=== PATIENT | female | born 1960 | race African-American/Black ===

== ENCOUNTER 2017-05-20 04:16 | Emergency (ER) | payer MEDICAID ==
[~2017-05-20 04:16] MED LIST: ALBUAER3 INH; ALDA50TA2 PO; AZIT250T3 PO; BIO-POW TOPICAL; DICL1GEL TOP; DICL1GEL TOPICAL; DIOV40TA PO; FURO40TA PO; GABA600T PO; IBUP-232 PO; KLOR20TA6 PO; LANTINJ SQ; LEVO75TA3 PO; LEXA10TA PO; METH4PAK PO; METO25TA3 PO; MISC-274; NEBUMIS9; NEUR600T PO; NYSTT TOP; ONDA4TAB7 SL; POTA1TAB4 PO; ROLLER WALKER1 MI1; SUPETAB30 PO; VESI10TA PO; VOLT1GEL4 TOPICAL; ZANT150T2 PO; ZOFR4TAB3 SL; [UNRECOGNIZED DRUG - CODE]
[2017-05-20 04:18] VITALS: BP 184/87; PULSE 110; RESP 18; TEMP 98.6; O2SAT 96
[2017-05-20] MEDS ORDERED: ACETAMINOPHEN 325 MG TAB PO ONE (04:45)
[2017-05-20] MEDS ORDERED: ONDANSETRON ODT 4 MG TAB PO ONE (04:45)
[2017-05-20 05:01] LABS: BACTERIA, URINE RARE /hpf; BLOOD, URINE SMALL (NEG); COMMENT (UR) CULT NOT INDICATED; CULTURE IF INDICATED CULT NOT INDICATED; GLUCOSE,URINE NEG (NEG); KETONE, URINE NEG (NEG); NITRITE,URINE NEG (NEG); SQUAMOUS EPITHELIAL CELL URINE 1 /hpf (0-5); URINE COLOR YELLOW (YELLW/STRAW)
--- NOTE | 2017-05-20 05:36 | PD ---
HPI Chief Complaint: Complaint Time Seen by Provider: 04:38 Travel History International Travel<30 days: No Contact w/Intl Traveler<30days: No Traveled to known affect area: No History of Present Illness HPI The patient is a 57-year-old [place] female who presents to the emergency department for a 3 day history of dysuria. The patient is a 3 day history of dysuria, frequency, and urgency. She also complains of mild suprapubic discomfort with pain that radiates to the back. She denies any vaginal bleeding or vaginal discharge. She does complain of mild nausea but denies any vomiting, diarrhea, or upper abdominal pain. She does have a history of previous UTI several years ago with similar symptoms. She denies any assisted fever, chills, or sweats. Symptoms are mild, there are no current alleviating or exacerbating factors. PFSH Past Medical History Anemia: Yes Autoimmune Disease: No Blood Disorders: No Anxiety: Yes Depression: Yes Heart Rhythm Problems: Yes Cancer: No Cardiovascular Problems: No Congestive Heart Failure: Yes Coronary Artery Disease: Yes Diabetes: Yes Patient Takes Glucophage: No Diminished Hearing: No Deep Vein Thrombosis: Yes (PE 2007) Endocrine: Yes Glaucoma: No Genitourinary: No Hepatitis: No Hiatal Hernia: No Hypertension: Yes Immune Disorder: No Medical other: Yes (ANEMIA; ) Musculoskeletal: No Neurologic: No Psychiatric: No Reproductive: No Respiratory: No Integumentary: Yes (PVD) Thyroid Disease: No PNEUMOCCOCAL Vaccine (Year): 1 ?: Not Menopausal: Yes : 4 Para: 3 Miscarriage: 1 : 0 Dilation and Curettage (D&C): Yes Tubal Ligation: Yes Past Surgical History Abdominal Surgery: No AICD: No Arteriovenous Shunt: No Cardiac Surgery: No Section: Yes (X3) Ear Surgery: No Endocrine Surgery: No Eye Surgery: No Genitourinary Surgery: No Gynecologic Surgery: No Insulin Pump: No Joint Replacement: No Oral Surgery: No Pacemaker: No Thoracic Surgery: No Other Surgery: Yes (trach) Social History Alcohol Use: No Tobacco Use: No Substance Use: No Allergies-Medications (Allergen,Severity, Reaction): Coded Allergies: *MDRO Multi-Drug Resistant Organism (Verified Allergy, Unknown, 05/20/17) MRSA ESBL Codeine (Verified Adverse Reaction, Severe, N/V, 05/20/17) Reported Meds & Prescriptions Reported Meds & Active Scripts Active Voltaren (Diclofenac Sodium) 100 Gm Gel..gram. 1 Applic TOPICAL Q6HR Proair Hfa 8.5 GM Inh (Albuterol Sulfate) 90 Mcg/Act Aer 2 Puff INH Q4-6H PRN 108 mcg/actuation Furosemide 40 Mg Tab 40 Mg PO DAILY Lantus Solostar Pen Inj (Insulin Glargine) 300 Unit/3 Ml Pen 30 Units SQ HS Zofran Odt (Ondansetron Odt) 4 Mg Tab 4 Mg SL Q6HR PRN Nebulizer Air Tube/Plugs (Respiratory Therapy Supplies) 1 Mis Mis Unit Roller Walker (Misc. Devices) 1 Mis Mis 1 Ea .ROUTE NOW Voltaren Topical (Diclofenac Topical) 1% Gel 1 Applic TOPICAL QID Gabapentin 600 Mg Tab 1,200 Mg PO TID Ondansetron Odt 4 Mg Tab 4 Mg SL Q8HR PRN Vesicare (Solifenacin) 10 Mg Tab 10 Mg PO DAILY Ibuprofen 600 Mg Tab 600 Mg PO Q6H PRN Folding Walker/5" Wheels (Device) 1 Mis Mis 1 Ea .ROUTE DIRECTED B-D Insulin Syringe Ultra 31G X 5/16" 0.3 ml 1 Mis Mis 1 Ea .ROUTE DIRECTED Vesicare (Solifenacin) 10 Mg Tab 10 Mg PO DAILY Methylprednisolone Dosepak (Methylprednisolone) 4 Dspk 4 Mg PO DIRECTED Per Pharmacist Direction K-Tab (Potassium Chloride) 20 Meq Tab 20 Meq PO DAILY Diovan (Valsartan) 40 Mg Tab 40 Mg PO DAILY Metoprolol Tartrate 25 Mg Tab 25 Mg PO Q12HR Zantac (Ranitidine HCl) 150 Mg Tab 150 Mg PO BID Aldactone (Spironolactone) 50 Mg Tab 50 Mg PO DAILY Levothyroxine (Levothyroxine Sodium) 75 Mcg Tab 75 Mcg PO DAILY Reported Lexapro (Escitalopram Oxalate) 10 Mg Tab 10 Mg PO DAILY Review of Systems Except as stated in HPI: all other systems reviewed are Neg General / Constitutional: No: Fever, Chills Gastrointestinal: Positive: Nausea, No: Vomiting, Diarrhea, Abdominal Pain Genitourinary: Positive: Urgency, Frequency, Dysuria, No: Hematuria, Flank Pain, Discharge, Vaginal Bleeding Physical Exam Narrative GENERAL: Awake, alert, pleasant 57-year-old female who appears her stated age and is in no acute respiratory distress. SKIN: Focused skin assessment warm/dry. HEAD: Atraumatic. Normocephalic. EYES: No injection or drainage. ENT: No nasal bleeding or discharge. Mucous membranes pink and moist. NECK: Trachea midline. No JVD. GASTROINTESTINAL: Abdomen obese, ventral hernia that is reducible, no rebound tenderness. Back: No CVA tenderness. MUSCULOSKELETAL: No obvious deformities. No clubbing. No cyanosis. No edema. NEUROLOGICAL: Awake and alert. No obvious cranial nerve deficits. Motor grossly within normal limits. Normal speech. PSYCHIATRIC: Appropriate mood and affect; insight and judgment normal. Data Data Last Documented VS Vital Signs Date Time Temp Pulse Resp B/P Pulse Ox O2 Delivery O2 Flow Rate FiO2 05/20/17 04:18 98.6 110 18 184/87 96 Room Air Orders Urinalysis - C+S If Indicated (05/20/17 04:45) Ondansetron Odt (Zofran Odt) (05/20/17 04:45) Acetaminophen (Tylenol) (05/20/17 04:45) Labs Laboratory Tests Test 05/20/17 03:45 Urine Color YELLOW Urine Turbidity HAZY Urine pH 7.0 Urine Specific [place] 1.018 Urine Protein TRACE mg/dL Urine Glucose (UA) NEG mg/dL Urine Ketones NEG mg/dL Urine Occult Blood SMALL Urine Nitrite NEG Urine Bilirubin NEG Urine Urobilinogen LESS THAN 2.0 MG/DL Urine Leukocyte Esterase MOD Urine RBC 9 /hpf Urine WBC 4 /hpf Urine Squamous Epithelial 1 /hpf Cells Urine Bacteria RARE /hpf Microscopic Urinalysis Comment CULT NOT INDICATED MDM Medical Decision Making Medical Screen Exam Complete: Yes Emergency Medical Condition: Yes Medical Record Reviewed: Yes Interpretation(s) Laboratory Tests Test 05/20/17 03:45 Urine Color YELLOW Urine Turbidity HAZY Urine pH 7.0 Urine Specific [place] 1.018 Urine Protein TRACE mg/dL Urine Glucose (UA) NEG mg/dL Urine Ketones NEG mg/dL Urine Occult Blood SMALL Urine Nitrite NEG Urine Bilirubin NEG Urine Urobilinogen LESS THAN 2.0 MG/DL Urine Leukocyte Esterase MOD Urine RBC 9 /hpf Urine WBC 4 /hpf Urine Squamous Epithelial 1 /hpf Cells Urine Bacteria RARE /hpf Microscopic Urinalysis Comment CULT NOT INDICATED Differential Diagnosis Differential diagnosis includes UTI, nephrolithiasis, hydronephrosis, pyelonephritis, vaginitis, cervicitis, PID. Narrative Course A UA was sent to lab. UA reveals RBCs, a few WBCs, blood, and leukocyte esterase. The patient has frequency, urgency, and dysuria. She does not appear to be in significant pain, I doubt nephrolithiasis. It appears the patient has a cystitis, will be treated with pyridium and Bactrim. She is advised to follow-up with her primary physician and return if symptoms worsen or progress. Diagnosis Primary Impression: Cystitis Patient Instructions: General Instructions Additional Instructions: Medications as directed. Follow-up with her primary physician. Return if symptoms worsen or progress. Med/Other Pt SpecificInfo: Prescription(s) given Scripts Phenazopyridine (Pyridium)100 Mg Eud210 Mg PO Q8H PRN (DYSURIA) 2 Days Ref 0 Prov:Benson Tucker MD 05/20/17 Sulfamethoxazole-Trimethoprim (Bactrim DS)800-160 Mg Tab1 Tab PO BID #6 TAB Ref 0 Prov:Benson Tucker MD 05/20/17 Disposition: 01 DISCHARGE HOME Condition: Stable Benson Tucker MD May 20, 2017 05:36
[2017-05-20] MEDS ORDERED: BACT800T5 PO (05:59)
[2017-05-20] MEDS ORDERED: PHEN0.4T PO (05:59)
== END 2017-05-20 06:28 | disposition home or self-care (01) ==
LOC: NEPE 04:16
DX: N30.90 Cystitis, unspecified without hematuria (principal); K43.9 Ventral hernia without obstruction or gangrene; R11.0 Nausea; D64.9 Anemia, unspecified; I50.9 Heart failure, unspecified; I10 Essential (primary) hypertension; I25.10 Atherosclerotic heart disease of native coronary artery without angina pectoris; E11.9 Type 2 diabetes mellitus without complications; I73.9 Peripheral vascular disease, unspecified
CPT/HCPCS: 81001; 99284

== ENCOUNTER 2017-05-25 18:40 | Emergency (ER) | payer MEDICAID ==
[~2017-05-25] VITALS: Ht 167.6 cm; Wt 165.0 kg
[~2017-05-25 18:40] MED LIST changes: -AZIT250T3 PO; +BACT800T5 PO; -BIO-POW TOPICAL; -DICL1GEL TOP; -KLOR20TA6 PO; -NEUR600T PO; -NYSTT TOP; +PHEN0.4T PO; -SUPETAB30 PO
[2017-05-25 18:43] VITALS: BP 144/74; PULSE 128; RESP 25; TEMP 98.3; O2SAT 97
--- NOTE | 2017-05-25 19:38 | RADRPT ---
EXAM DATE/TIME: 05/25/2017 19:10 [facility] COMPARISON: CHEST SINGLE AP, April 21, 2014, 3:32. INDICATIONS : Short of breath. MEDICAL HISTORY : None. SURGICAL HISTORY : None. ENCOUNTER: Initial ACUITY: 1 day PAIN SCORE: 0/10 LOCATION: Bilateral chest FINDINGS: A single view of the chest demonstrates the lungs to be symmetrically aerated without evidence of mas s, infiltrate or effusion. The cardiomediastinal contours are unremarkable. Osseous structures are intact. Large body habitus. CONCLUSION: Lungs are clear. Kyle Pearson MD on May 25, 2017 at 19:36 Board Certified Radiologist. This report was verified electronically.
[2017-05-25 20:12] LABS: AUTOMATED NEUTROPHIL # 8.4 TH/MM3 (1.8-7.7); BASOPHIL # 0.1 TH/MM3 (0-0.2); BASOPHIL % 0.6 % (0.0-2.0); EOSINOPHIL # 0.1 TH/MM3 (0-0.4); EOSINOPHIL % 0.9 % (0.0-4.0); HEMATOCRIT 35.9 % (35.0-46.0); HEMO FLAGS DIFF FINAL; LYMPH % 16.9 % (9.0-44.0); LYMPHOCYTE # 1.9 TH/MM3 (1.0-4.8); MEAN CELL VOLUME 83.4 FL (80.0-100.0); MEAN CORPUSCULAR HEMOGLOBIN 26.1 PG (27.0-34.0); MEAN CORPUSCULAR HGB CONC 31.3 % (32.0-36.0); MONO % 7.3 % (0.0-8.0); NEUT % 74.3 % (16.0-70.0); PLATELET COUNT 200 TH/MM3 (150-450); RED BLOOD COUNT 4.31 MIL/MM3 (4.00-5.30); RED CELL DISTRIBUTION WIDTH 14.8 % (11.6-17.2); WHITE BLOOD COUNT 11.3 TH/MM3 (4.0-11.0)
--- NOTE | 2017-05-25 20:25 | PD ---
HPI Chief Complaint: Complaint Time Seen by Provider: 19:00 Travel History International Travel<30 days: No Contact w/Intl Traveler<30days: No Traveled to known affect area: No History of Present Illness HPI Patient is a 57-year-old female presenting to the emergency department for evaluation of low back, bilateral flank pain and low abdominal pain. Patient states that it [place] when she urinates, it's gotten worse over the last several days. She states the pain makes her feel nauseated. She has not vomited but states she's nauseated. Patient reports that she was diagnosed with cystitis on May 20, she states she's been compliant with antibiotic therapy. She denies any chest pain, shortness of breath, fever, chills, headache. PFSH Past Medical History Narrative Medical MORBID OBESITY, LYMPHEDEMA Anemia: Yes Anxiety: Yes Depression: Yes Heart Rhythm Problems: Yes Cancer: No Cardiovascular Problems: Yes (PVD) Congestive Heart Failure: Yes Coronary Artery Disease: Yes Diabetes: Yes Patient Takes Glucophage: Yes Diminished Hearing: No Deep Vein Thrombosis: Yes ( 2007) Glaucoma: No Genitourinary: Yes Hepatitis: No Hiatal Hernia: No Hypertension: Yes Immune Disorder: No Medical other: Yes Musculoskeletal: No Neurologic: No Psychiatric: No Reproductive: No Respiratory: No Immunizations Current: Yes Thyroid Disease: No PNEUMOCCOCAL Vaccine (Year): 1 ?: Not Menopausal: Yes : 4 Para: 3 Miscarriage: 1 : 0 Dilation and Curettage (D&C): Yes Tubal Ligation: Yes Past Surgical History Abdominal Surgery: No AICD: No Arteriovenous Shunt: No Cardiac Surgery: No Section: Yes (X3) Ear Surgery: No Endocrine Surgery: No Eye Surgery: No Genitourinary Surgery: No Gynecologic Surgery: No Insulin Pump: No Joint Replacement: No Oral Surgery: No Pacemaker: No Thoracic Surgery: No Social History Alcohol Use: No Tobacco Use: No Substance Use: No Allergies-Medications (Allergen,Severity, Reaction): Coded Allergies: *MDRO Multi-Drug Resistant Organism (Verified Allergy, Unknown, 05/25/17) MRSA ESBL Codeine (Verified Adverse Reaction, Severe, N/V, 05/25/17) Reported Meds & Prescriptions Reported Meds & Active Scripts Active Nystop Topical (Nystatin Topical) 100,000 Unit/Gm Powd 1 Applic TOPICAL Q12HR Macrobid (Nitrofurantoin Monoh/Nitrofur Macro) 100 Mg Cap 100 Mg PO BID 7 Days Pyridium (Phenazopyridine HCl) 100 Mg Tab 200 Mg PO Q8H PRN 2 Days Bactrim DS (Sulfamethoxazole-Trimethoprim) 800-160 Mg Tab 1 Tab PO BID Voltaren (Diclofenac Sodium) 100 Gm Gel..gram. 1 Applic TOPICAL Q6HR Proair Hfa 8.5 GM Inh (Albuterol Sulfate) 90 Mcg/Act Aer 2 Puff INH Q4-6H PRN 108 mcg/actuation Furosemide 40 Mg Tab 40 Mg PO DAILY Lantus Solostar Pen Inj (Insulin Glargine) 300 Unit/3 Ml Pen 30 Units SQ HS Zofran Odt (Ondansetron Odt) 4 Mg Tab 4 Mg SL Q6HR PRN Nebulizer Air Tube/Plugs (Respiratory Therapy Supplies) 1 Mis Mis Unit Roller Walker (Misc. Devices) 1 Mis Mis 1 Ea .ROUTE NOW Voltaren Topical (Diclofenac Topical) 1% Gel 1 Applic TOPICAL QID Gabapentin 600 Mg Tab 1,200 Mg PO TID Ondansetron Odt 4 Mg Tab 4 Mg SL Q8HR PRN Vesicare (Solifenacin) 10 Mg Tab 10 Mg PO DAILY Ibuprofen 600 Mg Tab 600 Mg PO Q6H PRN Folding Walker/5" Wheels (Device) 1 Mis Mis 1 Ea .ROUTE DIRECTED B-D Insulin Syringe Ultra 31G X 5/16" 0.3 ml 1 Mis Mis 1 Ea .ROUTE DIRECTED Vesicare (Solifenacin) 10 Mg Tab 10 Mg PO DAILY Methylprednisolone Dosepak (Methylprednisolone) 4 Dspk 4 Mg PO DIRECTED Per Pharmacist Direction K-Tab (Potassium Chloride) 20 Meq Tab 20 Meq PO DAILY Diovan (Valsartan) 40 Mg Tab 40 Mg PO DAILY Metoprolol Tartrate 25 Mg Tab 25 Mg PO Q12HR Zantac (Ranitidine HCl) 150 Mg Tab 150 Mg PO BID Aldactone (Spironolactone) 50 Mg Tab 50 Mg PO DAILY Levothyroxine (Levothyroxine Sodium) 75 Mcg Tab 75 Mcg PO DAILY Reported Lexapro (Escitalopram Oxalate) 10 Mg Tab 10 Mg PO DAILY Review of Systems Except as stated in HPI: all other systems reviewed are Neg General / Constitutional: No: Fever, Chills HENT: No: Headaches Cardiovascular: No: Chest Pain or Discomfort Respiratory: No: Shortness of Breath Gastrointestinal: Positive: Nausea, Abdominal Pain, No: Vomiting, Diarrhea Genitourinary: Positive: Dysuria Skin: Positive Rash Physical Exam Narrative GENERAL: Morbidly obese, well-developed, alert female. SKIN: Warm and dry. Chronic changes to left lower extremity secondary to lymphedema. Excoriation under pannus with foul odor. HEAD: Atraumatic. Normocephalic. EYES: Pupils equal and round. No scleral icterus. No injection or drainage. ENT: No nasal bleeding or discharge. Mucous membranes pink and moist. NECK: Trachea midline. No JVD. CARDIOVASCULAR: Tachycardic. RESPIRATORY: No accessory muscle use. Clear to auscultation. Breath sounds diminished but equal bilaterally. GASTROINTESTINAL: Abdomen obese soft, non-tender, nondistended. Hepatic and splenic margins not palpable. Positive bowel sounds, no rebound, no guarding MUSCULOSKELETAL: Extremities without clubbing, cyanosis. Lymphedema. No obvious deformities. NEUROLOGICAL: Awake and alert. No obvious cranial nerve deficits. Motor grossly within normal limits. Five out of 5 muscle strength in the arms and legs. Normal speech. PSYCHIATRIC: Appropriate mood and affect; insight and judgment normal. Data Data Last Documented VS Vital Signs Date Time Temp Pulse Resp B/P Pulse Ox O2 Delivery O2 Flow Rate FiO2 05/25/17 21:22 80 24 132/72 99 Room Air 05/25/17 18:43 98.3 Orders Complete Blood Count With Diff (05/25/17 19:05) Comprehensive Metabolic Panel (05/25/17 19:05) Lactic Acid Sepsis Protocol (05/25/17 19:05) Urinalysis - C+S If Indicated (05/25/17 19:05) Blood Culture (05/25/17 19:05) Wound Culture And Gram Stain (05/25/17 19:05) Chest, Single Ap (05/25/17 19:05) Blood Glucose (05/25/17 19:05) Ecg Monitoring (05/25/17 19:05) Iv Access Insert/Monitor (05/25/17 19:05) Oximetry (05/25/17 19:05) Oxygen Administration (05/25/17 19:05) Ct Abd/Pel W/O Iv Contrast (05/25/17 19:05) Urine Culture (05/25/17 20:50) Nitrofurantoin Monohyd Macrocr (Macrobid (05/25/17 22:15) Labs Laboratory Tests Test 05/25/17 05/25/17 19:50 20:50 White Blood Count 11.3 TH/MM3 Red Blood Count 4.31 MIL/MM3 Hemoglobin 11.3 GM/DL Hematocrit 35.9 % Mean Corpuscular Volume 83.4 FL Mean Corpuscular Hemoglobin 26.1 PG Mean Corpuscular Hemoglobin 31.3 % Concent Red Cell Distribution Width 14.8 % Platelet Count 200 TH/MM3 Mean Platelet Volume 7.8 FL Neutrophils (%) (Auto) 74.3 % Lymphocytes (%) (Auto) 16.9 % Monocytes (%) (Auto) 7.3 % Eosinophils (%) (Auto) 0.9 % Basophils (%) (Auto) 0.6 % Neutrophils # (Auto) 8.4 TH/MM3 Lymphocytes # (Auto) 1.9 TH/MM3 Monocytes # (Auto) 0.8 TH/MM3 Eosinophils # (Auto) 0.1 TH/MM3 Basophils # (Auto) 0.1 TH/MM3 CBC Comment DIFF FINAL Differential Comment Sodium Level 140 MEQ/L Potassium Level 3.7 MEQ/L Chloride Level 106 MEQ/L Carbon Dioxide Level 25.5 MEQ/L Anion Gap 9 MEQ/L Blood Urea Nitrogen 14 MG/DL Creatinine 0.72 MG/DL Estimat Glomerular Filtration 102 ML/MIN Rate Random Glucose 112 MG/DL Lactic Acid Level 1.3 mmol/L Calcium Level 9.4 MG/DL Total Bilirubin 0.5 MG/DL Aspartate Amino Transf 10 U/L (AST/SGOT) Alanine Aminotransferase 14 U/L (ALT/SGPT) Alkaline Phosphatase 72 U/L Total Protein 8.1 GM/DL Albumin 3.5 GM/DL Urine Color YELLOW Urine Turbidity HAZY Urine pH 7.5 Urine Specific [place] 1.022 Urine Protein TRACE mg/dL Urine Glucose (UA) NEG mg/dL Urine Ketones 40 mg/dL Urine Occult Blood SMALL Urine Nitrite NEG Urine Bilirubin NEG Urine Urobilinogen LESS THAN 2.0 MG/DL Urine Leukocyte Esterase LARGE Urine RBC 13 /hpf Urine WBC 4 /hpf Urine Squamous Epithelial 2 /hpf Cells Urine Bacteria OCC /hpf Urine Mucus FEW /lpf Microscopic Urinalysis Comment CATH-CULTURE IND MDM Medical Decision Making Medical Screen Exam Complete: Yes Emergency Medical Condition: Yes Medical Record Reviewed: Yes Interpretation(s) Last Impressions Chest X-Ray 05/25/171904 Signed Impressions: Service Date/Time: Thursday, May 25, 2017 19:10 - CONCLUSION: Lungs are clear. Kyle Pearson MD Abdomen/Pelvis CT 05/25/171904 Signed Impressions: Service Date/Time: Thursday, May 25, 2017 19:58 - CONCLUSION: 1. No calcified renal stones or hydronephrosis. 2. Large lower abdominal ventral hernia containing several loops of colon. 3. Abnormal mass and cystic lesions in the low midline pelvis which could be related to the uterus, but a large cystic area separates the mass from the expected locations of the cervix. Kyle Pearson MD Laboratory Tests Test 05/25/17 19:50 White Blood Count 11.3 TH/MM3 Red Blood Count 4.31 MIL/MM3 Hemoglobin 11.3 GM/DL Hematocrit 35.9 % Mean Corpuscular Volume 83.4 FL Mean Corpuscular Hemoglobin 26.1 PG Mean Corpuscular Hemoglobin 31.3 % Concent Red Cell Distribution Width 14.8 % Platelet Count 200 TH/MM3 Mean Platelet Volume 7.8 FL Neutrophils (%) (Auto) 74.3 % Lymphocytes (%) (Auto) 16.9 % Monocytes (%) (Auto) 7.3 % Eosinophils (%) (Auto) 0.9 % Basophils (%) (Auto) 0.6 % Neutrophils # (Auto) 8.4 TH/MM3 Lymphocytes # (Auto) 1.9 TH/MM3 Monocytes # (Auto) 0.8 TH/MM3 Eosinophils # (Auto) 0.1 TH/MM3 Basophils # (Auto) 0.1 TH/MM3 CBC Comment DIFF FINAL Differential Comment Sodium Level 140 MEQ/L Potassium Level 3.7 MEQ/L Chloride Level 106 MEQ/L Carbon Dioxide Level 25.5 MEQ/L Anion Gap 9 MEQ/L Blood Urea Nitrogen 14 MG/DL Creatinine 0.72 MG/DL Estimat Glomerular Filtration 102 ML/MIN Rate Random Glucose 112 MG/DL Lactic Acid Level 1.3 mmol/L Calcium Level 9.4 MG/DL Total Bilirubin 0.5 MG/DL Aspartate Amino Transf 10 U/L (AST/SGOT) Alanine Aminotransferase 14 U/L (ALT/SGPT) Alkaline Phosphatase 72 U/L Total Protein 8.1 GM/DL Albumin 3.5 GM/DL Vital Signs Date Time Temp Pulse Resp B/P Pulse Ox O2 Delivery O2 Flow Rate FiO2 05/25/17 18:43 98.3 128 25 144/74 97 Room Air Differential Diagnosis Diverticulitis versus urinary tract infection versus cellulitis versus metabolic abnormality versus other Narrative Course Patient is a 57-year-old female presenting for evaluation of low back, abdominal and flank pain. Patient is morbidly obese, this is the second time she has presented with these complaints. She was diagnosed with cystitis and reports compliance with antibiotics. On exam there is significant breakdown of the skin on her pannus. Labs and imaging ordered and pending. Patient is tachypneic and tachycardic on arrival however she is morbidly obese this is likely secondary to significant deconditioning. She reports a bowel movement every 2-3 days, this is her norm. CBC with a white count 11.3 with slight left shift Chemistry with no acute abnormality identified Lactic acid 1.3 Chest x-ray shows no acute abnormality CT of the abdomen and pelvis read by radiologist shows lax anterior abdominal wall in the midline abdominal wall CVA slightly towards the right, there is large discontinuity between the rectus muscles measuring 8.8 cm to the mid to lower abdomen and herniation of several loops of colon into the ventral hernia sac. The anterior and lateral margin of the hernia is outside field of view of the CT scan. Additionally there was a 9.4 x 9.4 solid lesion with scattered calcifications and a central hypodense area which is located in the anterior pelvis superior to the bladder, posterior to the solid lesion is a cystic lesion measuring 11.1 cm, the cystic lesion appears to be in continuity with the vaginal fornix, no evidence of free fluid. Diagnosis Primary Impression: UTI (lower urinary tract infection) Additional Impressions: Pelvic mass Skin breakdown Referrals: Thania Rogers MD 1 day Patient Instructions: General Instructions, Urinary Tract Infection in Women ( ED) Additional Instructions: Follow up with your primary doctor to obtain a referral to see a ticket counter to further evaluate pelvic mass. Complete course of antibiotics as prescribed Keep skin under abdominal folds clean and dry, apply antifungal cream as directed Return to the emergency department for any new or worsening symptoms Med/Other Pt SpecificInfo: Prescription(s) given Scripts Ondansetron Odt (Zofran Odt)4 Mg Tab4 Mg SL Q6HR PRN (Nausea/Vomiting) 3 Days Ref 0 Prov:Yeimy Pineda 05/25/17 Nystatin Topical (Nystop Topical)100,000 Unit/Gm Powd1 Applic TOPICAL Q12HR # 60 GM Ref 0 Prov:Yeimy Pineda 05/25/17 Nitrofurantoin Monohydrate Macrocrystals (Macrobid)100 Mg Abr629 Mg PO BID 7 Days Ref 0 Prov:Yeimy Pineda 05/25/17 Disposition: 01 DISCHARGE HOME Condition: Stable Yeimy Pineda May 25, 2017 20:25
[2017-05-25 20:58] LABS: ANION GAP 9 MEQ/L (5-15); BICARBONATE 25.5 MEQ/L (21.0-32.0); BLOOD UREA NITROGEN 14 MG/DL (7-18); CHLORIDE 106 MEQ/L (98-107); GLOMERULAR FILTRATION RATE 102 ML/MIN (>89); POTASSIUM 3.7 MEQ/L (3.5-5.1); SODIUM (NA) 140 MEQ/L (136-145)
[2017-05-25 21:00] LABS: ALT (GPT) 14 U/L (10-53); AST (GOT) 10 U/L (15-37)
[2017-05-25 21:02] LABS: ALKALINE PHOSPHATASE 72 U/L (45-117); TOTAL BILIRUBIN ADULT 0.5 MG/DL (0.2-1.0)
--- NOTE | 2017-05-25 21:13 | RADRPT ---
EXAM DATE/TIME: 05/25/2017 19:58 [facility] COMPARISON: No previous studies available for comparison. INDICATIONS : Patient complains of bilateral flank pain with nausea. ORAL CONTRAST: No oral contrast ingested. RADIATION DOSE: 39.14 CTDIvol (mGy) MEDICAL HISTORY : Cardiovascular disease. Congestive heart failure. SURGICAL HISTORY : section. ENCOUNTER: Initial ACUITY: 1 day PAIN SCALE: 5/10 LOCATION: Bilateral flank TECHNIQUE: Volumetric scanning of the abdomen and pelvis was performed. Using automated exposure control and ad justment of the mA and/or kV according to patient size, radiation dose was kept as low as reasonably achievable to obtain optimal diagnostic quality images. DICOM format image data is available electro nically for review and comparison. FINDINGS: LOWER LUNGS: The visualized lower lungs are clear. Small hiatus hernia. LIVER: Homogeneous density without lesion the noncontrast technique. There is no dilation of the biliary tr ee. No calcified gallstones. SPLEEN: Normal size without lesion. PANCREAS: Within normal limits. KIDNEYS: Normal in size and shape. There is no mass, stone, or hydronephrosis. ADRENAL GLANDS: Within normal limits. VASCULAR: There is no aortic aneurysm. BOWEL/MESENTERY: No dilated loops of small or large bowel. ABDOMINAL WALL: There is a lax anterior abdominal wall and the midline abdominal wall is deviated slightly towards th e right. There is a large discontinuity between the rectus muscles measuring 8.8 cm in the mid to lo wer abdomen and there is herniation of several loops of colon into the ventral hernia sac. The anter ior and lateral margin of the hernia is outside the [id number] of this scan. RETROPERITONEUM: There is no lymphadenopathy. BLADDER: No wall thickening or mass. REPRODUCTIVE: There is a 9.4 x 9.4 cm solid lesion with scattered calcifications and a central hypodense area which is located in the anterior pelvis superior to the urinary bladder. Posterior to the solid lesion is a cystic lesion measuring 11.1 cm. The cystic lesion appears to be in continuity with the vaginal f ornix. No evidence of free fluid. INGUINAL: There is no lymphadenopathy or hernia. MUSCULOSKELETAL: Within normal limits for patient age. CONCLUSION: 1. No calcified renal stones or hydronephrosis. 2. Large lower abdominal ventral hernia containing several loops of colon. 3. Abnormal mass and cystic lesions in the low midline pelvis which could be related to the uterus, b ut a large cystic area separates the mass from the expected locations of the cervix. Kyle Pearson MD on May 25, 2017 at 20:56 Board Certified Radiologist. This report was verified electronically.
[2017-05-25 21:22] VITALS: BP 132/72; PULSE 80; RESP 24; O2SAT 99
[2017-05-25 21:35] LABS: BACTERIA, URINE OCC /hpf; BLOOD, URINE SMALL (NEG); COMMENT (UR) CATH-CULTURE IND; CULTURE IF INDICATED CATH CULTURE IND; GLUCOSE,URINE NEG (NEG); KETONE, URINE 40 mg/dL (NEG); MUCUS URINE FEW /lpf (OCC); NITRITE,URINE NEG (NEG); PH, URINE 7.5 (5.0-8.5); SQUAMOUS EPITHELIAL CELL URINE 2 /hpf (0-5); URINE COLOR YELLOW (YELLW/STRAW)
[2017-05-25] MEDS ORDERED: NYST10007 TOPICAL (22:00)
[2017-05-25] MEDS ORDERED: MACR100C2 PO (22:00)
[2017-05-25] MEDS ORDERED: NITROFURANTOIN MONOHYD MACROCR 100 MG CAP PO ONE (22:15)
[2017-05-25] MEDS ORDERED: ZOFR4TAB3 SL (22:16)
[2017-05-25] MEDS ORDERED: ONDANSETRON ODT 4 MG TAB PO ONE (22:30)
== END 2017-05-25 23:08 | disposition home or self-care (01) ==
LOC: NEPE 18:40
DX: N39.0 Urinary tract infection, site not specified (principal); B96.89 Other specified bacterial agents as the cause of diseases classified elsewhere; R19.00 Intra-abdominal and pelvic swelling, mass and lump, unspecified site; E66.01 Morbid (severe) obesity due to excess calories; K43.9 Ventral hernia without obstruction or gangrene
CPT/HCPCS: 71010; 74176; 80053; 81001; 83605; 85025; 87040; 87070; 87086; 87205; 99285

== ENCOUNTER 2017-06-08 22:55 | Inpatient (IN) | payer MEDICAID ==
[~2017-06-08] VITALS: Ht 167.6 cm; Wt 157.1 kg
[~2017-06-08 22:55] MED LIST changes: +MACR100C2 PO; +NYST10007 TOPICAL
[2017-06-08 23:16] VITALS: BP 111/62; PULSE 120; RESP 30; TEMP 99.9; O2SAT 90
[2017-06-08 23:19] VITALS: O2SAT 90; O2SAT 97
--- NOTE | 2017-06-08 23:36 | PD ---
HPI Chief Complaint: Respiratory Symptoms Time Seen by Provider: 23:18 Travel History International Travel<30 days: No Contact w/Intl Traveler<30days: No Traveled to known affect area: No History of Present Illness HPI The patient is a 57 year old female who presents to the [facility] emergency department with a history of shortness of breath that began 2-3 days ago and worsened over the last day. The patient denies having any history of COPD, however she does use inhalers. She is followed by the [facility] for primary care. She has a history of PE in 2007. She is no longer on blood thinners. The patient reports that she had a DVT in the left leg and now has chronic lymphedema of that leg. She reports having increased pain and swelling of the left leg over the last 2 weeks. She reports that she is on ibuprofen and tramadol for pain. She has nausea with vomiting x1 today. She has a cough productive of yellow to brown sputum. She denies any prior history of smoking. The patient reports that she does have a history of sleep apnea. On review of systems, she reports that last week she did have a fever with a MAXIMUM TEMPERATURE of 101. She reports that she was diagnosed with a urinary tract infection and is currently on antibiotic. She cannot recall the name of the antibiotic. She has 2 days left of the course. She continues to have dysuria with urinary frequency and urgency. On review of systems, she denies any recent neck pain, chest pain, abdominal pain, diarrhea, or neurologic symptoms. [facility] Past Medical History Narrative Medical The patient's past medical history is significant for morbid obesity, sleep apnea, chronic lymph edema left leg, DM, hypothyroid disorder, hypertension, heart failure, valvular heart disease, history of urinary incontinence, history of an abnormal Pap smear, history of anemia, history of depression, history of pulmonary embolism, history of left leg DVT. Anemia: Yes Anxiety: Yes Depression: Yes Heart Rhythm Problems: Yes Cancer: No Cardiovascular Problems: Yes (htn, chf) Congestive Heart Failure: Yes Coronary Artery Disease: Yes Diabetes: Yes (insulin) Patient Takes Glucophage: No Diminished Hearing: No Deep Vein Thrombosis: Yes ( 2007) Glaucoma: No Genitourinary: Yes Hepatitis: No Hiatal Hernia: No Hypertension: Yes Immune Disorder: No Medical other: Yes (ANEMIA; ) Musculoskeletal: No Neurologic: No Psychiatric: No Reproductive: No Respiratory: No Immunizations Current: Yes Thyroid Disease: No Influenza Vaccination: No PNEUMOCCOCAL Vaccine (Year): 1 ?: Not Menopausal: Yes : 4 Para: 3 Miscarriage: 1 : 0 Dilation and Curettage (D&C): Yes Tubal Ligation: Yes Past Surgical History Narrative Surgical The patient's past surgical history is significant for a trach placement and removal, 3. Abdominal Surgery: No AICD: No Arteriovenous Shunt: No Cardiac Surgery: No Section: Yes (X3) Ear Surgery: No Endocrine Surgery: No Eye Surgery: No Genitourinary Surgery: No Gynecologic Surgery: No Insulin Pump: No Joint Replacement: No Oral Surgery: No Pacemaker: No Thoracic Surgery: No Social History Alcohol Use: No Tobacco Use: No Substance Use: No Allergies-Medications (Allergen,Severity, Reaction): Coded Allergies: *MDRO Multi-Drug Resistant Organism (Verified Allergy, Unknown, 06/08/17) MRSA ESBL codeine (Unverified Adverse Reaction, Severe, N/V, 06/08/17) Reported Meds & Prescriptions Reported Meds & Active Scripts Active Zofran Odt (Ondansetron Odt) 4 Mg Tab 4 Mg SL Q6HR PRN 3 Days Nystop Topical (Nystatin Topical) 100,000 Unit/Gm Powd 1 Applic TOPICAL Q12HR Macrobid (Nitrofurantoin Monoh/Nitrofur Macro) 100 Mg Cap 100 Mg PO BID 7 Days Pyridium (Phenazopyridine HCl) 100 Mg Tab 200 Mg PO Q8H PRN 2 Days Bactrim DS (Sulfamethoxazole-Trimethoprim) 800-160 Mg Tab 1 Tab PO BID Voltaren (Diclofenac Sodium) 100 Gm Gel..gram. 1 Applic TOPICAL Q6HR Proair Hfa 8.5 GM Inh (Albuterol Sulfate) 90 Mcg/Act Aer 2 Puff INH Q4-6H PRN 108 mcg/actuation Furosemide 40 Mg Tab 40 Mg PO DAILY Lantus Solostar Pen Inj (Insulin Glargine) 300 Unit/3 Ml Pen 30 Units SQ HS Zofran Odt (Ondansetron Odt) 4 Mg Tab 4 Mg SL Q6HR PRN Nebulizer Air Tube/Plugs (Respiratory Therapy Supplies) 1 Mis Mis Unit Roller Walker (Misc. Devices) 1 Mis Mis 1 Ea .ROUTE NOW Gabapentin 600 Mg Tab 1,200 Mg PO TID Ondansetron Odt 4 Mg Tab 4 Mg SL Q8HR PRN Vesicare (Solifenacin) 10 Mg Tab 10 Mg PO DAILY Ibuprofen 600 Mg Tab 600 Mg PO Q6H PRN Vesicare (Solifenacin) 10 Mg Tab 10 Mg PO DAILY Methylprednisolone Dosepak (Methylprednisolone) 4 Dspk 4 Mg PO DIRECTED Per Pharmacist Direction K-Tab (Potassium Chloride) 20 Meq Tab 20 Meq PO DAILY Diovan (Valsartan) 40 Mg Tab 40 Mg PO DAILY Metoprolol Tartrate 25 Mg Tab 25 Mg PO Q12HR Zantac (Ranitidine HCl) 150 Mg Tab 150 Mg PO BID Aldactone (Spironolactone) 50 Mg Tab 50 Mg PO DAILY Levothyroxine (Levothyroxine Sodium) 75 Mcg Tab 75 Mcg PO DAILY Reported Lexapro (Escitalopram Oxalate) 10 Mg Tab 10 Mg PO DAILY Review of Systems Except as stated in HPI: all other systems reviewed are Neg General / Constitutional: No: Fever Eyes: No: Visual changes HENT: Positive: Congestion, No: Headaches Cardiovascular: Positive: Dyspnea on exertion, Edema, No: Chest Pain or Discomfort Respiratory: Positive: Cough, Shortness of Breath Gastrointestinal: Positive: Nausea, Vomiting, No: Abdominal Pain Genitourinary: Positive: Urgency, Dysuria Musculoskeletal: No: Pain Skin: No Rash Neurologic: No: Weakness, Focal Abnormalities, Change in Mentation, Slurred Speech, Sensory Disturbance Psychiatric: No: Depression Endocrine: No: Polydipsia Hematologic/Lymphatic: No: Easy Bruising Physical Exam Narrative General: The patient is a well-developed well-nourished female, in no acute distress. Head and Neck exam: Head is normocephalic atraumatic. Eyes: EOMI, pupils are equal round and reactive to light. Nose: Midline septum with pink mucous membranes Mouth: Dentition unremarkable. Moist mucus membranes. Posterior oropharynx is not erythematous. No tonsillar hypertrophy. Uvula midline. Airway patent. Neck: No palpable lymphadenopathy. No nuchal rigidity. No thyromegaly. Cardiovascular: Sinus tachycardia in the 1 teens without murmurs, gallops, or rubs. No pulse deficit to the extremities and obtain his auscultation and palpation of her radial artery. Lungs: Expiratory wheezes are audible throughout bilateral lung escoto with decreased breath sounds in the bases. No rhonchi, no crackles. No accessory muscle use. No tripoding, no paroxysmal abdominal breathing. Abdomen: Soft, with tenderness on palpation in the left lower quadrant, suprapubic area, no other tenderness on palpation of the other quadrants of the abdomen No guarding, rebound, or rigidity. Negative Center Point sign. Normal bowel sounds are audible. No tenderness on palpation of McBurney's point. Extremities: No clubbing or cyanosis. The patient has 1+ edema on the right, 2+ on the left. The patient has a wound along the lateral aspect of the lower leg which she reports occurred 3 months ago when she hit her leg with the car door. She denies being in wound care for this. 2+ pulses in all 4 extremities. On more in depth examination of the patient's left leg, the patient is noted to have lymphedema that is most prominent proximally area the patient has macerated skin , skin breakdown noted under the left abdominal pannus and in the popliteal fossa. The patient has a foul odor to drainage underneath the left abdominal pannus and the left thigh pannus. This was cultured. Back: No costovertebral angle tenderness to palpation. Neurologic Exam: Grossly nonfocal. Skin Exam: No rash noted. Data Data Last Documented VS Vital Signs Date Time Temp Pulse Resp B/P Pulse Ox O2 Delivery O2 Flow Rate FiO2 06/09/17 00:02 120 26 119/66 97 Nasal Cannula 4 06/08/17 23:16 99.9 Orders Complete Blood Count With Diff (06/08/17 23:36) Comprehensive Metabolic Panel (06/08/17 23:36) B-Type Natriuretic Peptide (06/08/17 23:36) Act Partial Throm Time (Ptt) (06/08/17 23:36) Prothrombin Time / Inr (Pt) (06/08/17 23:36) Ckmb (Isoenzyme) Profile (06/08/17 23:36) Troponin I (06/08/17 23:36) Urinalysis - C+S If Indicated (06/08/17 23:36) Blood Culture (06/08/17 23:36) Iv Access Insert/Monitor (06/08/17 23:36) Electrocardiogram (06/08/17 23:36) Ecg Monitoring (06/08/17 23:36) Oximetry (06/08/17 23:36) Oxygen Administration (06/08/17 23:36) Sodium Chloride 0.9% Flush (Ns Flush) (06/08/17 23:45) Methylprednisolone So Succ Inj (Solumedr (06/08/17 23:45) Albuterol-Ipratropium Neb (Duoneb Neb) (06/08/17 23:45) Lactic Acid Sepsis Protocol (06/08/17 23:36) CKMB (06/09/17 00:00) CKMB% (06/09/17 00:00) Wound Culture And Gram Stain (06/09/17 01:02) Urine Culture (06/09/17 01:00) Chest, Single Ap (06/09/17 01:29) Piperacil-Tazo 3.375 Gm Premix (Zosyn 3. (06/09/17 01:30) Vancomycin Inj (Vancomycin Inj) (06/09/17 01:30) Sodium Chlorid 0.9% 500 Ml Inj (Ns 500 M (06/09/17 01:45) Aspirin Chew (Aspirin Chew) (06/09/17 02:15) Nitroglycerin 2% Oint (Nitroglycerin 2% (06/09/17 02:15) Admit Order (Ed Use Only) (06/09/17 02:02) Labs Laboratory Tests Test 06/09/17 06/09/17 00:00 01:00 White Blood Count 13.3 TH/MM3 Red Blood Count 4.51 MIL/MM3 Hemoglobin 11.8 GM/DL Hematocrit 37.8 % Mean Corpuscular Volume 83.8 FL Mean Corpuscular Hemoglobin 26.3 PG Mean Corpuscular Hemoglobin 31.4 % Concent Red Cell Distribution Width 15.0 % Platelet Count 142 TH/MM3 Mean Platelet Volume 8.8 FL Neutrophils (%) (Auto) 75.5 % Lymphocytes (%) (Auto) 15.5 % Monocytes (%) (Auto) 7.8 % Eosinophils (%) (Auto) 0.5 % Basophils (%) (Auto) 0.7 % Neutrophils # (Auto) 10.0 TH/MM3 Lymphocytes # (Auto) 2.1 TH/MM3 Monocytes # (Auto) 1.0 TH/MM3 Eosinophils # (Auto) 0.1 TH/MM3 Basophils # (Auto) 0.1 TH/MM3 CBC Comment DIFF FINAL Differential Comment Prothrombin Time 11.8 SEC Prothromb Time International 1.1 RATIO Ratio Activated Partial 22.5 SEC Thromboplast Time Sodium Level 141 MEQ/L Potassium Level 3.9 MEQ/L Chloride Level 107 MEQ/L Carbon Dioxide Level 23.6 MEQ/L Anion Gap 10 MEQ/L Blood Urea Nitrogen 18 MG/DL Creatinine 1.03 MG/DL Estimat Glomerular Filtration 67 ML/MIN Rate Random Glucose 160 MG/DL Lactic Acid Level 2.6 mmol/L Calcium Level 9.0 MG/DL Total Bilirubin 0.5 MG/DL Aspartate Amino Transf 16 U/L (AST/SGOT) Alanine Aminotransferase 23 U/L (ALT/SGPT) Alkaline Phosphatase 73 U/L Total Creatine Kinase 298 U/L Creatine Kinase MB 1.8 NG/ML Creatine Kinase MB % 0.6 % Troponin I 0.12 NG/ML B-Type Natriuretic Peptide 402 PG/ML Total Protein 8.4 GM/DL Albumin 3.5 GM/DL Urine Color DARK-BROWN Urine Turbidity CLEAR Urine pH 6.0 Urine Specific [place] 1.039 Urine Protein 100 mg/dL Urine Glucose (UA) NEG mg/dL Urine Ketones 40 mg/dL Urine Occult Blood SMALL Urine Nitrite POS Urine Bilirubin NEG Urine Urobilinogen 4.0 MG/DL Urine Leukocyte Esterase NEG Urine RBC 15 /hpf Urine WBC 2 /hpf Urine Squamous Epithelial 1 /hpf Cells Urine Transitional Epithelial <1 /hpf Cells Urine Bacteria RARE /hpf Urine Hyaline Casts 3 /lpf Urine Mucus FEW /lpf Microscopic Urinalysis Comment CULTURE INDICATED MDM Medical Decision Making Medical Screen Exam Complete: Yes Emergency Medical Condition: Yes Medical Record Reviewed: Yes Interpretation(s) Last Impressions Chest X-Ray 06/09/17 0129 Signed Impressions: Service Date/Time: Friday, June 09, 2017 01:53 - CONCLUSION: No infiltrates seen. Kyle Pearson MD Differential Diagnosis Sepsis related to cellulitis in the left lower extremity, versus DVT, versus PE , versus congestive heart failure exacerbation, versus pneumonia. Narrative Course During the course of the patients emergency department visit, the patients history, examination, and differential diagnosis were reviewed with the patient. The patient had IV access obtained and blood work sent for analysis. The patient states on a monitoring and evaluation advisor with oximetry and blood pressure monitoring. A knee ECG was done on arrival. The patient's ECG shows a sinus tachycardia rate of 120, no acute ST segment elevation. T waves are inverted in lead V1, V2, V4, V3, V6, lead 3. The patient was initially provided Solu-Medrol 125 mg IV, DuoNeb 3. Zosyn 3.375 g IV, vancomycin 1 g IV, normal saline a 500 mL bolus. The patient was started on gentle hydration initially until her chest x-ray was able to be viewed and the BNP was returned given the patient's lower extremity edema. The patients laboratory studies were reviewed and remarkable for a white count of 13.3, hemoglobin 11.8, platelets 142 with 75.5 neutrophils, CMP is remarkable for creatinine 1.03, glucose 160, CPK 298 with 0.6 MB percent, troponin I 0.12, BNP is 402. The patient was given aspirin 162 mg by mouth 1. The patient denies having any chest pain. The patient was given nitroglycerin 1 inch the chest wall. Her initial lactic acid was 2.6. PT 11.8 , PTT 25.5, urinalysis shows 40 ketones small occult blood positive nitrite for urobilinogen 15 RBCs, 2 wbc's, rare bacteria, culture indicated. This was a catheterized specimen. Radiology studies were reviewed and remarkable for a chest x-ray that shows no acute infiltrates. CTA to rule out PE shows a recurrence of PE in this patient with a pulmonary embolism noted in the left lower lobe. The patient is also noted to have a goiter. The family practice residents were made aware of the patient's CT scan coming back positive for pulmonary embolism. They plan to start the patient on heparin by drip titrated dose. Given the patient's elevated BNP and lower extremity edema, the patient was judiciously hydrated regarding her sepsis in order to prevent respiratory failure from fluid overload. The patients results were discussed with the patient, including the plan of care. I explained that further testing and/ or monitoring is indicated based on the patients history, examination, and/ or laboratory findings. Therefore, I recommended admission for additional evaluation. The patient expressed understanding and was agreeable with this plan. The patient was admitted to the hospital in guarded condition and sent to a bed under the care of the family practice residents. Critical Care Narrative Aggregate critical care time was 35 minutes. Time to perform other separately billable procedures was not included in the critical care time. My time did not include minutes spent treating any other patients simultaneously or on activities that did not directly contribute to the patient's treatment. The services I provided to this patient were to treat and/or prevent clinically significant deterioration that could result in: Respiratory failure from fluid overload, versus hypoxic brain injury, versus cardiac arrhythmia, versus cardiovascular collapse. I provided critical care services requiring my management, as noted below: Chart data review, documentation time, medication orders and management, vital sign assessments/reviewing monitor data, ordering and reviewing lab tests, ordering and interpreting/reviewing x-rays and diagnostic studies, care of the patient and discussion of the patient with the admitting physicians. Sepsis Criteria SIRS Criteria (2 or more): Heart rate over 90, RR > 20 or PaCO2 < 32, WBC > 47331, < 4000 or > 10% bands Sepsis Criteria (SIRS+source): Infect source susp/known Severe Sepsis (+one): Lactate >2 Criteria Outcome: Meets SIRS criteria, Meets sepsis criteria Physician Communication Physician Communication The patient's case was discussed with the [facility] practice residents who did agree to admit the patient for further evaluation and treatment at this time. Diagnosis Primary Impression: Sepsis Qualified Code: A41.9 - Sepsis, due to unspecified organism Additional Impressions: Pulmonary embolism Cellulitis Qualified Code: L03.116 - Cellulitis of left lower extremity Urinary tract infection Qualified Code: N39.0 - Urinary tract infection without hematuria, site unspecified Admitting Information Admitting Physician Requests: it Vandana Vargas MD Jun 08, 2017 23:36
[2017-06-08] MEDS ORDERED: methylPREDNISolone SOD SUCC 125 MG/2 ML VIAL IVP ONE (23:45)
[2017-06-08] MEDS ORDERED: SODIUM CHLORIDE 0.9% FLUSH 10 ML FLUSH IVF PRN (23:45)
[2017-06-08] MEDS: RESP: ALBUTEROL 2.5 MG/IPRATROPIUM 0.5 MG NEB (SCH) INH ×2 (23:47→23:48)
[2017-06-09] VITALS (18 sets, daily range): BP systolic 113–155; BP diastolic 56–96; PULSE 92–120; RESP 20–26; TEMP 98.2–99.3; O2SAT 95–99
[2017-06-09 00:14] LABS: BASOPHIL # 0.1 TH/MM3 (0-0.2); BASOPHIL % 0.7 % (0.0-2.0); EOSINOPHIL # 0.1 TH/MM3 (0-0.4); EOSINOPHIL % 0.5 % (0.0-4.0); HEMATOCRIT 37.8 % (35.0-46.0); HEMO FLAGS DIFF FINAL; LYMPH % 15.5 % (9.0-44.0); LYMPHOCYTE # 2.1 TH/MM3 (1.0-4.8); MEAN CELL VOLUME 83.8 FL (80.0-100.0); MEAN CORPUSCULAR HEMOGLOBIN 26.3 PG (27.0-34.0); MEAN CORPUSCULAR HGB CONC 31.4 % (32.0-36.0); MONO % 7.8 % (0.0-8.0); NEUT % 75.5 % (16.0-70.0); PLATELET COUNT 142 TH/MM3 (150-450); RED BLOOD COUNT 4.51 MIL/MM3 (4.00-5.30); WHITE BLOOD COUNT 13.3 TH/MM3 (4.0-11.0)
[2017-06-09 00:27] LABS: APTT (PATIENT) 22.5 SEC (24.3-30.1); INTERNATIONAL NORMALIZED RATIO 1.1 RATIO; PROTHROMBIN TIME - PATIENT 11.8 SEC (9.8-11.6)
[2017-06-09 00:41] LABS: ALT (GPT) 23 U/L (10-53); ANION GAP 10 MEQ/L (5-15); AST (GOT) 16 U/L (15-37); BICARBONATE 23.6 MEQ/L (21.0-32.0); CHLORIDE 107 MEQ/L (98-107); GLOMERULAR FILTRATION RATE 67 ML/MIN (>89); POTASSIUM 3.9 MEQ/L (3.5-5.1); SODIUM (NA) 141 MEQ/L (136-145)
[2017-06-09 00:47] LABS: ALKALINE PHOSPHATASE 73 U/L (45-117); BLOOD UREA NITROGEN 18 MG/DL (7-18); CREATINE KINASE 298 U/L (26-192); TOTAL BILIRUBIN ADULT 0.5 MG/DL (0.2-1.0)
[2017-06-09 01:00] LABS: CKMB 1.8 NG/ML (0.5-3.6)
[2017-06-09 01:25] LABS: BACTERIA, URINE RARE /hpf; BLOOD, URINE SMALL (NEG); GLUCOSE,URINE NEG (NEG); HYALINE CAST, URINE 3 /lpf (RARE); KETONE, URINE 40 mg/dL (NEG); MUCUS URINE FEW /lpf (OCC); SQUAMOUS EPITHELIAL CELL URINE 1 /hpf (0-5); TRANSITIONAL EPI CELLS, URINE <1 /hpf
[2017-06-09 01:26] LABS: COMMENT (UR) CULTURE INDICATED; CULTURE IF INDICATED CULTURE INDICATED; NITRITE,URINE POS (NEG); URINE COLOR DARK-BROWN (YELLW/STRAW)
[2017-06-09] MEDS ORDERED: VANCOMYCIN INJ 1,000 MG in SODIUM CHLOR 0.9% 250 ML INJ 250 ML IV ONE (01:30)
[2017-06-09] MEDS ORDERED: PIPERACIL-TAZO 3.375 GM PREMIX 50 ML IV ONE (01:30)
[2017-06-09] MEDS ORDERED: SODIUM CHLORID 0.9% 500 ML INJ 500 ML IV ONE (01:45)
--- NOTE | 2017-06-09 01:54 | RADRPT ---
EXAM DATE/TIME: 06/09/2017 01:53 [place] COMPARISON: CHEST SINGLE AP, May 25, 2017, 19:10. INDICATIONS : Shortness of breath. MEDICAL HISTORY : Cardiovascular disease. Congestive heart failure SURGICAL HISTORY : section. ENCOUNTER: Initial ACUITY: 1 day PAIN SCORE: 0/10 LOCATION: Bilateral chest FINDINGS: A single view of the chest demonstrates the lungs to be symmetrically aerated without evidence of mas s, infiltrate or effusion. The heart is upper limits normal size for AP technique. Both hemidiaphra gms are well delineated. Osseous structures are intact. CONCLUSION: No infiltrates seen. Kyle Pearson MD on June 09, 2017 at 1:52 Board Certified Radiologist. This report was verified electronically.
[2017-06-09 02:07] LABS: LACTIC ACID GHOST NOT REPORTABLE
[2017-06-09] MEDS ORDERED: NITROGLYCERIN 2% OINT 1 GM PACKET TOPICAL ONE (02:15)
[2017-06-09] MEDS ORDERED: ASPIRIN 81 MG CHEW TAB CHEW ONE (02:15)
--- NOTE | 2017-06-09 03:18 | HHI.HP ---
HPI Service Family Medicine Primary Care Physician Matthew Nino MD Admission Diagnosis Urosepsis Diagnoses: International Travel<30 Days: No Contact w/Intl Traveler<30days: No Known Affected Area: No History of Present Illness Ms. Kiran is a 57 yo AAF presenting with one day history of SOB, N/V (times 2) back and L Leg pain. Pt states that she had "trouble catching her breath" starting this morning. She then developed nausea and vomiting (x2) as well as Left leg and back pain. Her left leg is chronically swollen from a prior DVT. She also complains of a cough productive of yellow/brown sputum for the past 2 days. Denies chest pain. Of note, she came to the ED with dysuria 2 weeks ago and was diagnosed with UTI. Upon chart review she was discharged on zofran, nystatin topical powder and Macorbid (for which she believes to have 2 days left on course). She also complains of skin breakdown under her left pannus as well as the popliteal/ extensor fold of her L knee. (Jose Angel Bourgeois MD R1) Review of Systems Constitutional: COMPLAINS OF: Fatigue, Fever (at onset of UTI 2 weeks ago, nothing current), Change in appetite Ears, nose, mouth, throat: DENIES: Throat pain, Running Nose Respiratory: COMPLAINS OF: Cough, Sputum production, Shortness of breath, DENIES: Hemoptysis Cardiovascular: COMPLAINS OF: Lower Extremity Edema, DENIES: Chest pain, Palpitations Gastrointestinal: COMPLAINS OF: Constipation, Nausea, Vomiting, DENIES: Diarrhea Genitourinary: COMPLAINS OF: Urinary frequency, Dysuria Musculoskeletal: COMPLAINS OF: Back pain Integumentary: COMPLAINS OF: Rash (skin breakdown noted in HPI), DENIES: Nail changes Neurologic: DENIES: Headache, Localized weakness (Jose Angel Bourgeois MD R1) Past Family Social History Past Medical History PMHx: DM, HTN, hypothryoidism, valvular heart disease, Pulmonary embolism, anemia, hypokalemia, overactive bladder Past Surgical History PSHx: (Jose Angel Bourgeois MD R1) Allergies: Coded Allergies: *MDRO Multi-Drug Resistant Organism (Verified Allergy, Unknown, 06/08/17) MRSA ESBL codeine (Unverified Adverse Reaction, Severe, N/V, 06/08/17) Family History FamHx: DM, fibroids Social History SocHx: tobacco: tried it for 1 month many years ago, never a smoker, EtOH: has not had a drink in 15 years ago, prior to that occasional use, denies illicit drugs, is single, lives with her two brothers, unemployed, prior career as a caregiver (Jose Angel Bourgeois MD R1) Physical Exam Vital Signs Vital Signs Date Time Temp Pulse Resp B/P Pulse Ox O2 Delivery O2 Flow Rate FiO2 06/09/17 00:02 120 26 119/66 97 Nasal Cannula 4 06/09/17 00:01 97 Nasal Cannula 4 06/09/17 00:01 97 Nasal Cannula 4 06/08/17 23:19 90 Room Air 06/08/17 23:19 97 Nasal Cannula 4 06/08/17 23:16 99.9 120 30 111/62 90 Physical Exam GENERAL: Obese AAF laying in bed in NAD. SKIN: Grade 1 vs grade 2 ulcerations noted under left side of pannus as well as on extensor surface of left knee. Beefy in appearance with the largest being 1 cm in diameter on her abdomen with multiple 1 mm ulcerations. HEAD: Atraumatic. Normocephalic. No temporal or scalp tenderness. EYES: Pupils equal round and reactive. Extraocular motions intact. No scleral icterus. No injection or drainage. ENT: Lips/mouth appeared dry. Nose without bleeding, purulent drainage or septal hematoma. Throat without erythema, tonsillar hypertrophy or exudate. Uvula midline. Airway patent. CARDIOVASCULAR: Regular rate and rhythm without murmurs, gallops, or rubs. RESPIRATORY: Clear to auscultation. Breath sounds equal bilaterally. No wheezes , rales, or rhonchi. GASTROINTESTINAL: Abdomen soft, non-tender, nondistended. No hepato-splenomegaly , or palpable masses. No guarding. MUSCULOSKELETAL: +2 pitting edema of left leg to level of mid calf and +1 pitting to level of mid calf of R leg. Chronic skin changes suggestive of venous stasis on both legs - hyperpigmented and crusty in appearance NEUROLOGICAL: Awake and alert. Motor and sensory grossly within normal limits. Normal speech. Laboratory Laboratory Tests Test 06/09/17 06/09/17 06/09/17 00:00 01:00 02:30 White Blood Count 13.3 Red Blood Count 4.51 Hemoglobin 11.8 Hematocrit 37.8 Mean Corpuscular Volume 83.8 Mean Corpuscular Hemoglobin 26.3 Mean Corpuscular Hemoglobin 31.4 Concent Red Cell Distribution Width 15.0 Platelet Count 142 Mean Platelet Volume 8.8 Neutrophils (%) (Auto) 75.5 Lymphocytes (%) (Auto) 15.5 Monocytes (%) (Auto) 7.8 Eosinophils (%) (Auto) 0.5 Basophils (%) (Auto) 0.7 Neutrophils # (Auto) 10.0 Lymphocytes # (Auto) 2.1 Monocytes # (Auto) 1.0 Eosinophils # (Auto) 0.1 Basophils # (Auto) 0.1 CBC Comment DIFF FINAL Differential Comment Prothrombin Time 11.8 Prothromb Time International 1.1 Ratio Activated Partial 22.5 Thromboplast Time Sodium Level 141 Potassium Level 3.9 Chloride Level 107 Carbon Dioxide Level 23.6 Anion Gap 10 Blood Urea Nitrogen 18 Creatinine 1.03 Estimat Glomerular Filtration 67 Rate Random Glucose 160 Lactic Acid Level 2.6 2.1 Calcium Level 9.0 Total Bilirubin 0.5 Aspartate Amino Transf 16 (AST/SGOT) Alanine Aminotransferase 23 (ALT/SGPT) Alkaline Phosphatase 73 Total Creatine Kinase 298 Creatine Kinase MB 1.8 Creatine Kinase MB % 0.6 Troponin I 0.12 B-Type Natriuretic Peptide 402 Total Protein 8.4 Albumin 3.5 Urine Color DARK-BROWN Urine Turbidity CLEAR Urine pH 6.0 Urine Specific [place] 1.039 Urine Protein 100 Urine Glucose (UA) NEG Urine Ketones 40 Urine Occult Blood SMALL Urine Nitrite POS Urine Bilirubin NEG Urine Urobilinogen 4.0 Urine Leukocyte Esterase NEG Urine RBC 15 Urine WBC 2 Urine Squamous Epithelial 1 Cells Urine Transitional Epithelial <1 Cells Urine Bacteria RARE Urine Hyaline Casts 3 Urine Mucus FEW Microscopic Urinalysis Comment CULTURE INDICATED Date/Time Procedure Status Source Growth 06/09/17 01:15 Gram Stain Received Wound Abdomen Pending 06/09/17 01:15 Wound Culture Received Wound Abdomen Pending 06/09/17 01:00 Urine Culture Received Urine Clean Catch Pending 06/09/17 00:05 Aerobic Blood Culture Received Blood Peripheral Pending 06/09/17 00:05 Anaerobic Blood Culture Received Blood Peripheral Pending (Jose Angel Bourgeois MD R1) Result Diagram: 06/09/17 0000 06/09/17 0000 Imaging Last Impressions Chest X-Ray 06/09/17 0129 Signed Impressions: Service Date/Time: Friday, June 09, 2017 01:53 - CONCLUSION: No infiltrates seen. Kyle Pearson MD (Jose Angel Bourgeois MD R1) Assessment and Plan Assessment and Plan 57 yo F presenting to ED with sepsis, SOB and N/V. Code Status FULL CODE (Jose Angel Bourgeois MD R1) Attending Attestation The patient has been seen and examined. The chart and all resident notes have been reviewed. I agree that inpatient care is appropriate and that a two midnight stay is expected for the reasons documented in the resident history and physical. I have discussed this with the resident and certify the resident s order for inpatient admission. Patient seen and examined. Case reviewed and discussed Please refer to resident H&P for further details regarding HPI, ROS, PMH, SurgHx , Fh and SocHx In summary, patient is a 57yoAAF with a history of prior DVT as well as overactive bladder presenting with sepsis due to pyelonephritis and recurrent PE She is seen in the [facility] on heparin gtt Reports she is feeling like breathing is a little easier GENERAL: obese female, resting in bed SKIN: Warm and dry. LLE with circular wound, some weeping, no evidence of infection. L pannicular lesions with malodor. HEAD: Normocephalic. AT EYES: No scleral icterus. No injection or drainage. ENT: Op clear. Nc in place. MM slightly dry NECK: Supple, trachea midline. No JVD or lymphadenopathy. CARDIOVASCULAR: Tachycardic rate and reg rhythm without murmurs, gallops, or rubs. RESPIRATORY: Breath sounds equal bilaterally. Poor aeration and diminished effort. No accessory muscle use. GASTROINTESTINAL: Abdomen soft, non-tender, nondistended. Obese, skin as above. No rebound. MUSCULOSKELETAL: No cyanosis, there is bilateral edema, LLE >RLE. L radhika tenderness on exam BACK: Nontender without obvious deformity. NEURO: Awake and alert. Normal speech. MAEW. A/P: 57yoF with: Sepsis due to pyelonephritis Failed outpatient therapy Obesity Recurrent PE Tachycardia SOB Skin wounds DM2 HTN Acute kidney injury Heparin gtt Urine and blood cultures Lactic acid protocol IVF resuscitation trend cbc, bmp wound care consult Empiric antibiotic therapy Resume home meds as appropriate Patient seen and examined Case reviewed and discussed Agree with plan of care as discussed with me and documented in the resident note. (Ilsa Baeza MD) Problem List: (1) Sepsis Status: Acute Plan: urosepsis vs cellulitis vs pneumonia HR 120, WBC 13.3 on admission Lactic acid 2.6 on admission, repeating previously diagnosed with UTI, continues to have dysuria, UA on admission showing bacteria, nitrites Continuing Vancomycin 1 gm q12hr, Zosyn 3.375 gm q6hr pharmacy consulted for vanc dosing urine, wound, blood cultures pending CXR normal on admission Given 500 mL bolus in ER, given 1,000 mL bolus on admission repeat CBC in AM (2) Shortness of breath Status: Acute Plan: PE vs pneumonia vs MD vs CHF exacerbation prior PE, DVT in past O2 sat in ED 90%, started on 4L NC -> weaned to 2L with O2 sat at 97% CXR normal on admission CT pulmonary angiogram read pending ECG on admission showing sinus tachycardia with no ST segment changes, repeating q6hr Troponin 0.12 on admission, repeating q6hr CKMB ordered - repeating q6hr Patient reports using inhaler occasionally at home, given duonebs in ED Continuing Duonebs, albuterol PRN Switching home PO Lasix to IV - 20mg BID, will continue home po Potassium 20 mEq daily repeat BMP (3) COSME (acute kidney injury) Status: Acute Plan: Cr 1.03 on admission, prior was 0.72 less than 1 month ago Given bolus on admission, 75 mL/hr maintenance to follow Mucous membranes/lips dry on admission Mckay catheter inserted in ED due to urinary leakage, continuing Mckay follow up BMP (4) Nausea & vomiting Status: Acute Plan: n/v x 2 earlier the day of admission nonbilious, no hematemesis Zofran 4mg IV q6hr PRN (5) Diabetes mellitus type 2 Status: Chronic Plan: Glucose 160 on admission Takes Lantus 30 units daily at home Ordering Levemir 8 units SQ q12hr, low NovoLOG scale Regular diet at this time (6) Neuropathy Status: Chronic Plan: continuing home Gabapentin 1.200 mg TID (7) HTN (hypertension) Status: Chronic Plan: Continuing home Metoprolol tartrate 25mg po BID, Valsartan 40mg po daily , Spironolactone 50mg po daily (8) Depression Status: Chronic Plan: Continuing home Lexapro 10mg po daily (9) Hypothyroidism Status: Chronic Plan: Continuing home Levothyroxine 75 mcg po daily (10) Nutrition, metabolism, and development symptoms Status: Acute Plan: full diet, IVFs as discussed above DVT prophylaxis with Lovenox 40mg SQ q24hr Continuing home Ranitidine 150 mg po BID (Jose Angel Bourgeois MD R1) Physician Certification 2 Midnight Certification Type: Admission for Inpatient Services Order for Inpatient Services The services are ordered in accordance with Medicare regulations or non- Medicare payer requirements, as applicable. In the case of services not specified as inpatient-only, they are appropriately provided as inpatient services in accordance with the 2-midnight benchmark. Estimated LOS (days): 2 days is the estimated time the patient will need to remain in the hospital, assuming treatment plan goals are met and no additional complications. Post-Hospital Plan: Not yet determined (Jose Angel Bourgeois MD R1) Problem Qualifiers (1) Sepsis: Qualified Code: A41.9 - Sepsis, due to unspecified organism (2) HTN (hypertension): Qualified Code: I10 - Essential hypertension (3) Depression: Qualified Code: F32.9 - Depression, unspecified depression type Jose Angel Bourgeois MD R1 Jun 09, 2017 03:18 Ilsa Baeza MD Jun 09, 2017 22:38
[2017-06-09] MEDS ORDERED: IOHEXOL 350 MG/ML 10 ML VIAL (for RAD DIAG) IV ONE (04:08)
[2017-06-09] MEDS ORDERED: SODIUM CHLORIDE 0.9% FLUSH 10 ML FLUSH IV FLUSH PRN (04:30)
[2017-06-09] MEDS ORDERED: Vancomycin Consult Pharmacy 1 EA OTHER SCH (04:30)
[2017-06-09] MEDS ORDERED: SODIUM CHLOR 0.9% 1000 ML INJ 1,000 ML IV ONE (04:45)
[2017-06-09] MEDS ORDERED: DEXTROSE 50% IN WATER 50 ML VIAL(D50) IV PRN (04:45)
[2017-06-09] MEDS ORDERED: MORPHINE SULFATE 4 MG/ML INJ IV PRN (04:45)
[2017-06-09] MEDS ORDERED: ACETAMINOPHEN 325 MG TAB PO PRN (04:45)
[2017-06-09] MEDS ORDERED: NALOXONE HCL 0.4 MG/ML AMP IV PRN (04:45)
[2017-06-09] MEDS ORDERED: RESP: ALBUTEROL 2.5 MG/IPRATROPIUM 0.5 MG NEB (PRN) NEB (04:45)
[2017-06-09] MEDS ORDERED: ALBUTEROL SULFATE 90 MCG/ACT HFA 8 GM INHALER INH PRN (04:45)
[2017-06-09] MEDS ORDERED: GLUCAGON 1 MG/ML VIAL OTHER PRN (04:45)
--- NOTE | 2017-06-09 04:51 | RADRPT ---
EXAM DATE/TIME: 06/09/2017 03:53 [facility] COMPARISON: US LEG BILATERAL VENOUS DOPPLER, June 23, 2014, 12:23. CHEST SINGLE AP, June 09, 2017, 1:53. INDICATIONS : Shortness of breath, cough and lower extremity swelling. IV CONTRAST: 75 cc Omnipaque 350 (iohexol) IV RADIATION DOSE: 31.76 CTDIvol (mGy) ; Patient body habitus MEDICAL HISTORY : Hypertension. Deep venous thrombosis. Congestive heart failure.CAD. Diabetes. SURGICAL HISTORY : Tubal ligation. ENCOUNTER: Initial ACUITY: 2 days PAIN SCALE: 0/10 LOCATION: Bilateral chest TECHNIQUE: Volumetric scanning of the chest was performed using a pulmonary embolism protocol MIP images were re constructed. Using automated exposure control and adjustment of the mA and/or kV according to patien t size, radiation dose was kept as low as reasonably achievable to obtain optimal diagnostic quality images. DICOM format image data is available electronically for review and comparison. Follow-up recommendations for detected pulmonary nodules are based at a minimum on nodule size and pa tient risk factors according to Fleischner Society Guidelines. FINDINGS: Technically limited scan due to patient motion. PULMONARY ARTERIES: Filling defect is seen in the left lower lobe pulmonary artery extending into to basilar segments. N o filling defects seen in the main pulmonary artery. LUNGS: There is no consolidation or pneumothorax . No concerning pulmonary nodule is visualized. PLEURAE: There is no pleural thickening or pleural effusion. MEDIASTINUM: There is good visualization of the great vessels of the middle mediastinum. No evidence of mediastin al or hilar adenopathy/mass. MISCELLANEOUS: Prominent goiter CONCLUSION: 1. Positive for pulmonary embolism in the left lower lobe. 2. Goiter. Kyle Pearson MD on June 09, 2017 at 4:45 Board Certified Radiologist. This report was verified electronically.
[2017-06-09] MEDS: ACETAMINOPHEN/HYDROcodone 325 MG/5 MG TAB PO PRN ×2 (05:04→16:45)
[2017-06-09] MEDS ORDERED: ALBUTEROL SULFATE 90 MCG/ACT HFA 18 GM INHALER INH PRN (05:07)
[2017-06-09] MEDS ORDERED: VANCOMYCIN 1,000 MG/NS 250 ML IV ONE ×2 (05:15)
[2017-06-09] MEDS: SODIUM CHLOR 0.9% 1000 ML INJ 1,000 ML IV SCH ×3 (05:21→17:56)
[2017-06-09] MEDS: LEVOTHYROXINE SODIUM 75 MCG TAB PO SCH ×2 (05:35→05:40)
--- NOTE | 2017-06-09 05:47 | HHI.PR ---
Addendum to Inpatient Note Addendum Reason: Additional Documentation Additional Information CTA remarkable for PE in LLL Patient had already received Lovenox, so we bypassed the loading bolus of Heparin After discussing with Dr. Vargas, we agreed that we could more quickly and safely treat patient to therapeutic efficacy with using Heparin via closer monitoring/adjustment of appropriate dosages. (Jose Angel Bourgeois MD R1) Jose Anegl Bourgeois MD R1 Jun 09, 2017 05:47 Ilsa Baeza MD Jun 09, 2017 22:20
[2017-06-09] MEDS ORDERED: ENOXAPARIN SODIUM 40 MG/0.4 ML SYRINGE SQ SCH (06:00)
[2017-06-09] MEDS: HEPARIN-D5W 25,000 U/250 ML 250 ML IV SCH ×2 (06:05→20:38)
[2017-06-09 06:14] LABS: HEMATOCRIT 33.2 % (35.0-46.0); MEAN CELL VOLUME 83.2 FL (80.0-100.0); MEAN CORPUSCULAR HEMOGLOBIN 26.3 PG (27.0-34.0); MEAN CORPUSCULAR HGB CONC 31.6 % (32.0-36.0); PLATELET COUNT 130 TH/MM3 (150-450); RED BLOOD COUNT 3.99 MIL/MM3 (4.00-5.30); RED CELL DISTRIBUTION WIDTH 14.5 % (11.6-17.2); REVIEW FLAG FINAL; WHITE BLOOD COUNT 13.1 TH/MM3 (4.0-11.0)
[2017-06-09 06:25] LABS: APTT (PATIENT) 22.4 SEC (24.3-30.1); INTERNATIONAL NORMALIZED RATIO 1.1 RATIO; PROTHROMBIN TIME - PATIENT 11.9 SEC (9.8-11.6)
[2017-06-09 06:51] LABS: LACTIC ACID GHOST NOT REPORTABLE
[2017-06-09] MEDS: INSULIN ASPART SUPPLEMENTAL SCALE SQ SCH ×4 (06:57→20:37)
[2017-06-09 07:02] LABS: CKMB 1.5 NG/ML (0.5-3.6)
[2017-06-09] MEDS: SODIUM CHLORIDE 0.9% FLUSH 10 ML FLUSH IV FLUSH SCH ×2 (09:00→20:34)
[2017-06-09] MEDS ORDERED: PIPERACIL-TAZO 3.375 GM PREMIX 50 ML IV SCH (09:00)
[2017-06-09] MEDS: GABAPENTIN 300 MG CAP PO SCH ×3 (10:01→16:45)
[2017-06-09] MEDS: POTASSIUM CHLORIDE 20 MEQ CONTROLLED RELEASE TAB PO SCH (10:01)
[2017-06-09] MEDS: ESCITALOPRAM OXALATE 10 MG TAB PO SCH (10:01)
[2017-06-09] MEDS: FAMOTIDINE 20 MG TAB PO SCH ×2 (10:01→20:34)
[2017-06-09] MEDS: SPIRONOLACTONE 50 MG TAB PO SCH (10:01)
[2017-06-09] MEDS: METOPROLOL TARTRATE 25 MG TAB PO SCH ×2 (10:02→20:34)
[2017-06-09] MEDS: FUROSEMIDE 20 MG/2 ML VIAL IV PUSH SCH ×2 (10:02→16:45)
[2017-06-09] MEDS: INSULIN DETEMIR 100 UNITS/ML VIAL SQ SCH ×2 (10:24→20:36)
[2017-06-09] MEDS: VALSARTAN 40 MG TAB PO SCH (10:29)
[2017-06-09] MEDS ORDERED: CLOTRIMAZOLE 1% SOLN 30 ML BTL TOPICAL SCH (10:45)
--- NOTE | 2017-06-09 11:20 | HHI.FPPN ---
Subjective Remarks Is a 57-year-old morbidly obese female, with a past medical history of coronary artery disease congestive heart failure, and type 2 diabetes, who presents with worsening shortness of breath for the past 24 hours. She was recently seen on May 25, 2017 for a urinary tract infection, and was discharged home on Macrobid 100 mg twice daily for 7 days. Despite this therapy, she continued to have increasing dysuria, frequency, and suprapubic abdominal pain. Recently, she developed acute onset shortness of breath on 06/08 at approximately 9 PM. On admission, she was given Solu-Medrol 125 mg IV 1, and duo nebs 3. Vancomycin and Zosyn was started. She received a 500 mL bolus and started on IV maintenance fluid. She was found to be tachycardic to 120 bpm, having fevers as high as 99.9, and a slight leukocytosis of 13,000. UA was significant for nitrites, rare bacteria, 2 WBCs, and 15 RBCs. Chest x-ray was unremarkable for infiltrates, however a CTA showed a persistent left lower lobe pulmonary embolism (2008 - VQ scan showed high probability PE in [facility], repeat CTA in 2011 showed no PE). She was started on heparin drip after a bolus was given. On evaluation this morning, she reports that she feels "better." She says that her breathing has improved. She is denying any chest pain currently. She is having pain behind her left leg. She is also reporting urinary frequency, and burning with urination. She denies any flank pain or tenderness. (Magdiel Rivera MD, R3) Objective Vitals Vital Signs Date Time Temp Pulse Resp B/P Pulse Ox O2 Delivery O2 Flow Rate FiO2 06/09/17 07:39 99.3 114 22 138/73 95 Room Air 3 06/09/17 06:11 99.1 112 20 113/56 97 06/09/17 05:17 113 26 132/68 95 Nasal Cannula 2 06/09/17 04:55 99 Nasal Cannula 3.00 06/09/17 03:44 115 132/68 97 Nasal Cannula 2 06/09/17 00:02 120 26 119/66 97 Nasal Cannula 4 06/09/17 00:01 97 Nasal Cannula 4 06/09/17 00:01 97 Nasal Cannula 4 06/08/17 23:19 90 Room Air 06/08/17 23:19 97 Nasal Cannula 4 06/08/17 23:16 99.9 120 30 111/62 90 I/O 06/08/17 06/08/17 06/08/17 06/09/17 06/09/17 06/09/17 07:00 15:00 23:00 07:00 15:00 23:00 Intake Total 1500 ml 240 ml Output Total 325 ml Balance 1175 ml 240 ml Intake Oral 240 ml IV Total 1500 ml Output Urine Total 325 ml (Magdiel Rivera MD, R3) Result Diagram: 06/09/17 0600 06/09/17 0000 A/P Assessment and Plan 57 yo F presenting to ED with sepsis, SOB and N/V. (Magdiel Rivera MD, R3) Attending Attestation Patient seen and examined. Case reviewed and discussed Agree with plan of care as discussed with me and documented in the resident note Patient reports improvement in her breathing, still having dyspnea with exertion Discussed diagnosis, patient reports previously was on Coumadin, would like to use this again for anticoagulation, though she is uncertain of dose Spoke with RN, Jahaira in [facility], regarding plan of care Wound care consult for LE and panicular wounds (Ilsa Baeza MD) Problem List: (1) Sepsis Status: Acute Plan: urosepsis vs cellulitis vs pneumonia HR 120, WBC 13.3 on admission Lactic acid 2.6 on admission, down trending previously diagnosed with UTI, continues to have dysuria, UA on admission showing bacteria, nitrites Continuing Vancomycin 1 gm q12hr, Zosyn 3.375 gm q6hr pharmacy consulted for vanc dosing urine, wound, blood cultures pending CXR normal on admission Given 500 mL bolus in ER, given 1,000 mL bolus on admission (2) Pulmonary embolism Status: Chronic Plan: O2 sat in ED 90%, started on 4L NC -> weaned to 2L with O2 sat at 97% CXR normal on admission CT pulmonary angiogram showed pulmonary embolism in the left lower lobe. ECG on admission showing sinus tachycardia with no ST segment changes, repeating q6hr. also showed T-wave inversions in V1, V2, V3, and lead III, that were new since 2013. May be related to demand ischemia. Troponin 0.12 on admission, decreased to 0.10 after 6 hours. Repeat every 6 hours. Consult cardiology if any further changes in EKG or troponins. Patient reports using inhaler occasionally at home, given duonebs in ED Continuing Duonebs, albuterol PRN Switching home PO Lasix to IV - 20mg BID, will continue home po Potassium 20 mEq daily (3) COSME (acute kidney injury) Status: Acute Plan: Cr 1.03 on admission, prior was 0.72 less than 1 month ago Given bolus on admission, 75 mL/hr maintenance to follow Mucous membranes/lips dry on admission Mckay catheter inserted in ED due to urinary leakage, continuing Mckay follow up BMP (4) Nausea & vomiting Status: Acute Plan: n/v x 2 earlier the day of admission nonbilious, no hematemesis Zofran 4mg IV q6hr PRN (5) Diabetes mellitus type 2 Status: Chronic Plan: Glucose 160 on admission Takes Lantus 30 units daily at home Ordering Levemir 8 units SQ q12hr, low NovoLOG scale Regular diet at this time (6) Neuropathy Status: Chronic Plan: continuing home Gabapentin 1.200 mg TID (7) HTN (hypertension) Status: Chronic Plan: Continuing home Metoprolol tartrate 25mg po BID, Valsartan 40mg po daily , Spironolactone 50mg po daily (8) Depression Status: Chronic Plan: Continuing home Lexapro 10mg po daily (9) Hypothyroidism Status: Chronic Plan: Continuing home Levothyroxine 75 mcg po daily (10) Nutrition, metabolism, and development symptoms Status: Acute Plan: full diet, IVFs as discussed above DVT prophylaxis - heparin gtt. Continuing home Ranitidine 150 mg po BID wdw Dr. Baeza (Magdiel Rivera MD, R3) Problem Qualifiers (1) Sepsis: Qualified Code: A41.9 - Sepsis, due to unspecified organism (2) HTN (hypertension): Qualified Code: I10 - Essential hypertension (3) Depression: Qualified Code: F32.9 - Depression, unspecified depression type Magdiel Rivera MD, R3 Jun 09, 2017 11:20 Ilsa Baeza MD Jun 09, 2017 22:24
[2017-06-09] MEDS ORDERED: HEPARIN SODIUM - IV 10,000 UNITS/10 ML VIAL IV PRN ×2 (11:45)
[2017-06-09] MEDS: [UNRECOGNIZED DRUG - REMARK] TOPICAL SCH ×2 (12:23→21:00)
[2017-06-09 13:40] LABS: APTT (PATIENT) 32.4 SEC (24.3-30.1)
[2017-06-09 14:25] LABS: CKMB 1.4 NG/ML (0.5-3.6)
[2017-06-09] MEDS ORDERED: VANCOMYCIN INJ 1,000 MG in SODIUM CHLOR 0.9% 250 ML INJ 250 ML IV SCH (14:30)
--- NOTE | 2017-06-09 14:58 | EKG ---
Date Performed: 06/09/2017 Time Performed: 05:59:37 PTAGE: 57 years EKG: SINUS TACHYCARDIA LOW QRS VOLTAGE IN PRECORDIAL LEADS POSSIBLE INFERIOR MYOCARDIAL INFARCTI ON MODERATE T-WAVE ABNORMALITY, CONSIDER ANTERIOR ISCHEMIA ABNORMAL ECG PREVIOUS TRACING : 06/08/2017 23.56 Compared to prior tracing no significant change DOCTOR: Sher Manzanares Interpretating Date/Time 06/09/2017 14:57:36
[2017-06-09 15:22] LABS: LACTIC ACID GHOST NOT REPORTABLE
[2017-06-09] MEDS: cefTRIAXone INJ 1,000 MG in SODIUM CHLORIDE 0.9% INJ 100 ML IV SCH (16:44)
--- NOTE | 2017-06-09 18:10 | ECHRPT ---
Indication: CONCLUSIONS Normal left ventricular size. Mild concentric left ventricular hypertrophy. The left ventricular systolic function is low normal with an estimated ejection fraction 50%. There was limited left ventricular wall motion assessment due to poor endocardial visualization. The left atrial size is upper normal. Moderate mitral annular calcification. Aortic valve sclerosis is present. There is mild tricuspid valve regurgitation. There is estimated moderate pulmonary hypertension present (55 mmHg). The pulmonary valve is not well visualized. BP: 139 / 86 HR: 99 Rhythm: Sinus MEASUREMENTS (Male / Female) Normal Values Technical Quality:Technically difficult study 2D ECHO LV Diastolic Diameter PLAX 4.2 cm 4.2 - 5.9 / 3.9 - 5.3 cm LV Systolic Diameter PLAX 3.5 cm IVS Diastolic Thickness 1.5 cm 0.6 - 1.0 / 0.6 - 0.9 cm LVPW Diastolic Thickness 0.8 cm 0.6 - 1.0 / 0.6 - 0.9 cm LV Relative Wall Thickness 0.5 LA Systolic Diameter LX 4.1 cm 3.0 - 4.0 / 2.7 - 3.8 cm M-MODE Aortic Root Diameter MM 2.5 cm AV Cusp Separation MM 1.4 cm DOPPLER Mitral E Point Velocity 56.3 cm/s Mitral A Point Velocity 78.5 cm/s Mitral E to A Ratio 0.7 TR Peak Velocity 335.0 cm/s TR Peak Gradient 44.9 mmHg FINDINGS LEFT VENTRICLE Normal left ventricular size. Mild concentric left ventricular hypertrophy. The left ventricular systolic function is low normal with an estimated ejection fraction 50%. There was limited left ventricular wall motion assessment due to poor endocardial visualization. RIGHT VENTRICLE Normal right ventricular size and systolic function. LEFT ATRIUM The left atrial size is upper normal. RIGHT ATRIUM The right atrial size is normal. ATRIAL SEPTUM Normal atrial septal thickness without atrial level shunting by limited color doppler interrogation. AORTA The aortic root and proximal ascending aorta are normal in size on limited imaging. MITRAL VALVE Moderate mitral annular calcification. AORTIC VALVE Trileaflet aortic valve. Aortic valve sclerosis is present. TRICUSPID VALVE There is mild tricuspid valve regurgitation. There is estimated moderate pulmonary hypertension present (55 mmHg). PULMONARY VALVE The pulmonary valve is not well visualized. VESSELS The inferior vena cava is normal in size. PERICARDIUM No pericardial effusion. Curtis Vargas MD (Electronically Signed) Final Date:09 June 2017 18:10
--- NOTE | 2017-06-09 18:10 | RADRPT ---
EXAM DATE/TIME: 06/09/2017 15:33 [facility] COMPARISON: No previous studies available for comparison. INDICATIONS : Hematuria. MEDICAL HISTORY : Congestive heart failure. Hypothyroidism. HTN. Valvular heart disease. Coronary artery disease. Pul monary embolism. Irregular heartbeat. DVT. Sleep apnea. Dyspnea. Dysuria. UTI. Urinary incontinence. Anemia. Depression. Anxiety. MRSA. ESBL. SURGICAL HISTORY : Tubal ligation. section. Trach surgery. D&C. Blood transfusions. ENCOUNTER: Initial ACUITY: 1 day PAIN SCORE: 7/10 LOCATION: Bilateral flank MEASUREMENTS: RIGHT KIDNEY: 12.4 x 7.4 x 5.9 cm LEFT KIDNEY: NOT VISUALIZED cm FINDINGS: RIGHT KIDNEY: Renal cortex is normal in thickness and echotexture. No hydronephrosis, stone, or mass. LEFT KIDNEY: The left kidney could not be visualized despite repeated imaging secondary to patient's body habitus and bandages. There is overlying bowel gas as well. BLADDER: Could not be visualized. CONCLUSION: 1. The right kidney is unremarkable in appearance. 2. Left kidney could not be visualized or evaluated. 3. Bladder was not visualized as well. Charles Castillo MD on June 09, 2017 at 18:07 Board Certified Radiologist. This report was verified electronically.
--- NOTE | 2017-06-09 18:24 | RADRPT ---
EXAM DATE/TIME: 06/09/2017 16:57 [facility] COMPARISON: US LEG LEFT VENOUS DOPPLER, April 28, 2013, 9:15. INDICATIONS : Left leg swelling. MEDICAL HISTORY : Congestive heart failure. Hypothyroidism. HTN. Valvular heart disease. Coronary artery disease. P ulmonary embolism. Irregular heartbeat. DVT. Sleep apnea. Dyspnea. Dysuria. UTI. Urinary incontinence . Anemia. Depression. Anxiety. MRSA. ESBL. SURGICAL HISTORY : Tubal ligation. section. Trach surgery. D&C. Blood transfusions. ENCOUNTER: Initial ACUITY: 2 day PAIN SCORE: 7/10 LOCATION: Left leg. TECHNIQUE: Venous ultrasound of the leg was performed from the inguinal ligament to the proximal calf. Real-brenda e, color Doppler and spectral tracing, compression and augmentation techniques were used. FINDINGS: Diffuse soft tissue swelling is again identified. The deep venous system could not be visualized seco ndary to the patient's body habitus. The groin area could not be visualized due to overlying bandages . CONCLUSION: Limited suboptimal examination. Deep venous thrombosis cannot be excluded. Charles Castillo MD on June 09, 2017 at 18:21 Board Certified Radiologist. This report was verified electronically.
[2017-06-09] MEDS ORDERED: WARFARIN SOD 4 MG TAB PO SCH (19:00)
[2017-06-09] MEDS: WARFARIN SOD 4 MG TAB PO SCH (20:34)
[2017-06-09] MEDS ORDERED: VANCOMYCIN INJ 2,000 MG in SODIUM CHLORID 0.9% 500 ML INJ 500 ML IV SCH (22:00)
[2017-06-10] VITALS (15 sets, daily range): BP systolic 119–143; BP diastolic 73–92; PULSE 88–98; RESP 20; TEMP 97.7–98.6; O2SAT 95–100
[2017-06-10] MEDS: [UNRECOGNIZED DRUG - REMARK] TOPICAL SCH ×3 (00:32→21:00)
[2017-06-10] MEDS: SODIUM CHLOR 0.9% 1000 ML INJ 1,000 ML IV SCH ×4 (00:33→23:15)
[2017-06-10 02:24] LABS: AUTOMATED NEUTROPHIL # 14.9 TH/MM3 (1.8-7.7); BASOPHIL % 0.2 % (0.0-2.0); HEMATOCRIT 32.2 % (35.0-46.0); HEMO FLAGS DIFF FINAL; LYMPH % 7.5 % (9.0-44.0); LYMPHOCYTE # 1.4 TH/MM3 (1.0-4.8); MEAN CELL VOLUME 82.6 FL (80.0-100.0); MEAN CORPUSCULAR HEMOGLOBIN 26.3 PG (27.0-34.0); MEAN CORPUSCULAR HGB CONC 31.9 % (32.0-36.0); MONO % 9.5 % (0.0-8.0); NEUT % 82.8 % (16.0-70.0); PLATELET COUNT 127 TH/MM3 (150-450); RED CELL DISTRIBUTION WIDTH 14.7 % (11.6-17.2)
[2017-06-10 02:35] LABS: APTT (PATIENT) 43.4 SEC (24.3-30.1)
[2017-06-10 02:42] LABS: BICARBONATE 26.2 MEQ/L (21.0-32.0)
[2017-06-10] MEDS: LEVOTHYROXINE SODIUM 75 MCG TAB PO SCH (05:09)
[2017-06-10] MEDS: INSULIN ASPART SUPPLEMENTAL SCALE SQ SCH ×4 (05:43→21:00)
--- NOTE | 2017-06-10 08:35 | EKG ---
Date Performed: 06/08/2017 Time Performed: 23:56:13 PTAGE: 57 years EKG: SINUS TACHYCARDIA LOW QRS VOLTAGE IN PRECORDIAL LEADS POSSIBLE INFERIOR MYOCARDIAL INFARCTI ON MODERATE T-WAVE ABNORMALITY, CONSIDER ANTEROLATERAL ISCHEMIA ABNORMAL ECG PREVIOUS TRACING : 06/22/2014 03.02 Compared to the previous tracing, ST/T wave changes are new DOCTOR: Sher Manzanares Interpretating Date/Time 06/10/2017 08:33:13
[2017-06-10] MEDS: GABAPENTIN 300 MG CAP PO SCH ×3 (08:43→17:28)
[2017-06-10] MEDS: FUROSEMIDE 20 MG/2 ML VIAL IV PUSH SCH ×2 (08:45→17:28)
[2017-06-10] MEDS: POTASSIUM CHLORIDE 20 MEQ CONTROLLED RELEASE TAB PO SCH (08:45)
[2017-06-10] MEDS: SPIRONOLACTONE 50 MG TAB PO SCH (08:45)
[2017-06-10] MEDS: METOPROLOL TARTRATE 25 MG TAB PO SCH ×2 (08:45→23:14)
[2017-06-10] MEDS: ESCITALOPRAM OXALATE 10 MG TAB PO SCH (08:45)
[2017-06-10] MEDS: VALSARTAN 40 MG TAB PO SCH (08:45)
[2017-06-10] MEDS: FAMOTIDINE 20 MG TAB PO SCH ×2 (08:45→23:14)
[2017-06-10] MEDS: SODIUM CHLORIDE 0.9% FLUSH 10 ML FLUSH IV FLUSH SCH ×2 (08:46→21:00)
[2017-06-10] MEDS: INSULIN DETEMIR 100 UNITS/ML VIAL SQ SCH ×2 (09:00→23:27)
--- NOTE | 2017-06-10 09:10 | EKG ---
Date Performed: 06/09/2017 Time Performed: 19:23:24 PTAGE: 57 years EKG: Sinus tachycardia. Possible anterior infarct - age undetermined Inferior/lateral T wave jose nges may be due to myocardial ischemia Low QRS voltages in precordial leads Abnormal ECG PREVIOUS TRACING : 06/09/2017 12.19 Compared to prior tracing no significant change DOCTOR: Lalo Novak Interpretating Date/Time 06/10/2017 09:02:11
--- NOTE | 2017-06-10 09:23 | EKG ---
Date Performed: 06/09/2017 Time Performed: 12:19:19 PTAGE: 57 years EKG: SINUS TACHYCARDIA LOW QRS VOLTAGE IN PRECORDIAL LEADS MODERATE T-WAVE ABNORMALITY, CONSIDER ANTEROLATERAL ISCHEMIA ABNORMAL ECG INTERPRETATION BASED ON A DEFAULT AGE OF 40 YEARS PREVIOUS TRACING : 06/09/2017 05.59 Compared to prior tracing no significant change DOCTOR: Lalo Novak Interpretating Date/Time 06/10/2017 09:09:59
--- NOTE | 2017-06-10 10:28 | HHI.FPPN ---
Subjective Remarks Patient feeling better. Reports discomfort around miguel catherter. Denies fevers. Denies worsening SOB - breathing is getting better. Denies chest pain. Denies any bleeding. Patient is currently on heparin gtt and transitioning to coumadin. AFVSS and at goal, except persistent tachycardia to 90-105. (Magdiel Rivera MD, R3) Objective Vitals Vital Signs Date Time Temp Pulse Resp B/P Pulse Ox O2 Delivery O2 Flow Rate FiO2 06/10/17 06:00 96 06/10/17 05:00 99 Nasal Cannula 3.00 06/10/17 05:00 96 06/10/17 04:00 90 06/10/17 03:46 98.6 92 20 128/82 97 06/10/17 03:00 95 06/10/17 02:00 96 06/10/17 01:00 88 06/10/17 00:07 98.6 92 20 138/83 99 06/10/17 00:00 89 06/09/17 23:00 92 06/09/17 22:00 94 06/09/17 21:00 104 06/09/17 20:00 104 06/09/17 19:00 106 06/09/17 19:00 98.7 105 24 128/75 98 06/09/17 18:00 100 06/09/17 17:00 99 06/09/17 16:00 92 06/09/17 15:00 98 06/09/17 14:41 98.2 99 24 155/96 98 06/09/17 12:00 99 24 139/86 97 Nasal Cannula 3 I/O 06/09/17 06/09/17 06/09/17 06/10/17 06/10/17 06/10/17 06:59 14:59 22:59 06:59 14:59 22:59 Intake Total 1500 ml 240 ml 400 ml 2388 ml Output Total 325 ml 1000 ml 600 ml 850 ml Balance 1175 ml -760 ml -200 ml 1538 ml Intake Oral 240 ml 400 ml 360 ml IV Total 1500 ml 2028 ml Output Urine Total 325 ml 1000 ml 600 ml 850 ml Emesis 0 ml # Voids 0 # Bowel Movements 0 (Magdiel Rivera MD, R3) Result Diagram: 06/10/1720406/10/17204 Imaging Last [address] Angiography 06/09/17234 Signed Impressions: Service Date/Time: Friday, June 09, 2017 03:53 - CONCLUSION: 1. Positive for pulmonary embolism in the left lower lobe. 2. Goiter. Kyle Pearson MD Chest X-Ray 06/09/17 0129 Signed Impressions: Service Date/Time: Friday, June 09, 2017 01:53 - CONCLUSION: No infiltrates seen. Kyle Pearson MD Renal Ultrasound 06/09/17 0000 Signed Impressions: Service Date/Time: Wednesday, June 09, 2017 15:33 - CONCLUSION: 1. The right kidney is unremarkable in appearance. 2. Left kidney could not be visualized or evaluated. 3. Bladder was not visualized as well. Charles Castillo MD Lower Extremity Ultrasound 06/09/17 0000 Signed Impressions: Service Date/Time: Friday, June 09, 2017 16:57 - CONCLUSION: Limited suboptimal examination. Deep venous thrombosis cannot be excluded. Charles Castillo MD (Magdiel Rivera MD, R3) A/P Assessment and Plan 57 yo F presenting to ED with sepsis, SOB and N/V. (Magdiel Rivera MD, R3) Attending Attestation Patient seen and examined. Case reviewed and discussed Agree with plan of care as discussed with me and documented in the resident note. Having some nausea, no chest pain Breathing improved (Ilsa Baeza MD) Problem List: (1) Sepsis Status: Acute Plan: Still with leukocytosis (13 k on admission --> 18.0 on 06/10), tachycardia > 90, and likely source of infection being urogenital track. UA showing 50-100,000 mixed gram positive bacteria (likely contaminant). Wound cultures showing heavy skin dina. Blood cultures pending. Lactic acid 2.6 on admission, down trending CXR normal on admission. Continue with NS at maintenance. Continue Rocephin 1 g q 24 hours for pyelonephritis. Continue to follow cultures and sensitivities. D/c Zosyn and vancomycin 06/09. (2) Pulmonary embolism Status: Chronic Plan: Heparin gtt --> PO Coumadin 4 mg PO. Patient was on Coumadin for prior PE in 2007 and would like to resume. O2 sat in ED 90%, started on 4L NC -> weaned to 2L with O2 sat at 97% CXR normal on admission CT pulmonary angiogram showed pulmonary embolism in the left lower lobe. ECG on admission showing sinus tachycardia with no ST segment changes, repeating q6hr. also showed T-wave inversions in V1, V2, V3, and lead III, that were new since 2013. May be related to demand ischemia. Troponin 0.12 on admission, decreased to 0.10 after 6 hours. Patient reports using inhaler occasionally at home, given duonebs in ED Continuing Duonebs, albuterol PRN Switching home PO Lasix to IV - 20mg BID, will continue home po Potassium 20 mEq daily (3) COSME (acute kidney injury) Status: Acute Plan: Resolved with IV hydration. (4) Nausea & vomiting Status: Acute Plan: Resolved. Zofran 4mg IV q6hr PRN (5) Diabetes mellitus type 2 Status: Chronic Plan: BSG 248 - 135 over past 24 hours. Takes Lantus 30 units daily at home Getting 8 units levemir BID since admission. 14 units novoLOG given x 24 hours. Increase basal to 16 units BID. Switch to diabetic diet. (6) Neuropathy Status: Chronic Plan: continuing home Gabapentin 1.200 mg TID (7) HTN (hypertension) Status: Chronic Plan: Continuing home Metoprolol tartrate 25mg po BID, Valsartan 40mg po daily , Spironolactone 50mg po daily (8) Depression Status: Chronic Plan: Continuing home Lexapro 10mg po daily (9) Hypothyroidism Status: Chronic Plan: Continuing home Levothyroxine 75 mcg po daily (10) Nutrition, metabolism, and development symptoms Status: Acute Plan: full diet, IVFs as discussed above DVT prophylaxis - heparin gtt. Continuing home Ranitidine 150 mg po BID wdw Dr. Baeza (11) Pelvic mass Status: Acute Plan: CT pelvis showing: " CT on 05/25/17 showing: "9.4 x 9.4 solid lesion with scattered calcifications in the central hypodense area which is loculated in the anterior pelvis superior to the urinary bladder. Posterior to the solid mass is a cystic lesion measuring 11.1 cm." Concerning for abscess, bladder cancer, or other. Patient also having worsening pelvic, and vaginal pain. 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 (Magdiel Rivera MD, R3) Problem Qualifiers (1) Sepsis: Qualified Code: A41.9 - Sepsis, due to unspecified organism (2) HTN (hypertension): Qualified Code: I10 - Essential hypertension (3) Depression: Qualified Code: F32.9 - Depression, unspecified depression type Magdiel Rivera MD, R3 Jun 10, 2017 10:27 Ilsa Baeza MD Jun 12, 2017 15:23
[2017-06-10] MEDS: ACETAMINOPHEN/HYDROcodone 325 MG/5 MG TAB PO PRN (10:52)
[2017-06-10] MEDS: ONDANSETRON HCL 4 MG/2 ML VIAL IV PUSH PRN (10:53)
[2017-06-10] MEDS: ACETAMINOPHEN/HYDROcodone 325 MG/10 MG TAB PO PRN ×2 (12:48→23:24)
[2017-06-10] MEDS: cefTRIAXone INJ 1,000 MG in SODIUM CHLORIDE 0.9% INJ 100 ML IV SCH (15:00)
--- NOTE | 2017-06-10 15:18 | PD.WCN.NOT ---
Wound Consult Description: Multiple small partial thickness wounds to L lower abdominal fold and Posterior bend of L knee.Also shallow full thickness wound to anterior aspect of L carrero Communicated with: FANNY Dias [facility] and Doctor Miguel Recommendation: 1.Please cleanse areas to L lower abdominal fold and Posterior bend of L knee with soap and water gently and dry thoroughly. Please apply Calazime barrier cream with antifungal cream BID. 2. Please cleanse wound with anterior aspect of L carrero with normal saline or wound cleanser and apply skin prep to periwound before applying adhesive foam dressing. Change dressing every 3 days or PRN for saturation or dislodgement Additional Information: Patient seen on [facility] for evaluation of wound management to LLE and L panicular wounds. Patient is morbidly obese with history of lymph edema. Patient is complaining of pain in lower L abdominal fold and L posterior bend of knee. Assessed these areas to reveal diffuse small round partial thickness wounds with minimal scant sanguinous drainage.Drainage has mild musty odor.Wounds measure ~1cm x ~1cm x~<0.1cm.Periwound noted with satellite lesions and erythema.Left wounds open to air, towel is in place to L lower abdominal fold. L anterior aspect of carrero is noted with a full thickness shallow wound that presents with scant serous drainage that is without odor. Wound bed is noted with ~50% adipose tissue and ~50% red non granulation tissue. Wound measures ~ 3cm x ~2cm x~ 0.1cm Cleansed wound with normal saline and applied skin prep before applying adhesive foam dressing in place.Patient unable to remember when or how wound occurred. Oriana Murillo [facility] Jun 10, 2017 15:18
[2017-06-10] MEDS: WARFARIN SOD 4 MG TAB PO SCH (16:00)
[2017-06-10 16:03] LABS: AUTOMATED NEUTROPHIL # 11.5 TH/MM3 (1.8-7.7); BASOPHIL % 0.2 % (0.0-2.0); EOSINOPHIL % 0.1 % (0.0-4.0); HEMATOCRIT 34.9 % (35.0-46.0); HEMO FLAGS DIFF FINAL; LYMPH % 15.1 % (9.0-44.0); LYMPHOCYTE # 2.3 TH/MM3 (1.0-4.8); MEAN CELL VOLUME 86.4 FL (80.0-100.0); MEAN CORPUSCULAR HEMOGLOBIN 26.5 PG (27.0-34.0); MEAN CORPUSCULAR HGB CONC 30.6 % (32.0-36.0); MONO % 7.7 % (0.0-8.0); NEUT % 76.9 % (16.0-70.0); PLATELET COUNT 139 TH/MM3 (150-450); RED BLOOD COUNT 4.05 MIL/MM3 (4.00-5.30); RED CELL DISTRIBUTION WIDTH 15.1 % (11.6-17.2)
[2017-06-10] MEDS: HEPARIN-D5W 25,000 U/250 ML 250 ML IV SCH (23:26)
--- NOTE | 2017-06-10 23:32 | RADRPT ---
EXAM DATE/TIME: 06/10/2017 22:22 [facility] COMPARISON: No previous studies available for comparison. INDICATIONS : Abnormalities seen on CT. MEDICAL HISTORY : Congestive heart failure. Deep venous thrombosis. Hypertension. Morbid obesity. Coronary artery disea se. Pulmonary embolism. Sleep apnea. . Miscarriage. Diabetes. Hypothyroidism. Depression. An xiety. Measles. Blood transfusion. MRSA. MDRO. SURGICAL HISTORY : section. Tubal ligation. Dlation and curettage. ENCOUNTER: Initial ACUITY: 1 day PAIN SCORE: 2/10 LOCATION: Bilateral pelvis MEASUREMENTS: UTERUS: Non visualized ENDOMETRIAL STRIPE: Non visualized RIGHT OVARY: Non visualized LEFT OVARY: Non visualized FINDINGS: Examination was severely limited by patient's size. Ultrasound does confirm a circumscribed cystic ma ss measuring up to about 10.8 cm x 10.7 cm x 13.1 cm in diameter near the expected location of the ce rvix adjacent to the bladder. This is similar to the CT finding. Suspected uterus measures about 10 x 8.3 x 7.2 cm with probable fibroid. Ovaries not visualized. CONCLUSION: 1. 13.1 cm cystic mass between uterus and bladder similar to recent CT. This cystic mass contains kel e debris but no definite solid component. Uterus is mildly enlarged with probable fibroid. Exam sever hill limited by patient's body habitus. Russell Campbell MD on June 10, 2017 at 23:27 Board Certified Radiologist. This report was verified electronically.
[2017-06-11] VITALS (10 sets, daily range): BP systolic 127–160; BP diastolic 62–80; PULSE 84–108; RESP 20–24; TEMP 97.6–97.9; O2SAT 94–99
[2017-06-11] MEDS: SODIUM CHLOR 0.9% 1000 ML INJ 1,000 ML IV SCH ×4 (02:38→23:04)
[2017-06-11] MEDS: LEVOTHYROXINE SODIUM 75 MCG TAB PO SCH (05:54)
[2017-06-11] MEDS: INSULIN ASPART SUPPLEMENTAL SCALE SQ SCH ×4 (05:54→21:00)
[2017-06-11] MEDS: ONDANSETRON HCL 4 MG/2 ML VIAL IV PUSH PRN (05:59)
--- NOTE | 2017-06-11 08:50 | PD.CONS ---
HPI Chief Complaint pelvic mass Date Seen: Jun 11, 2017 Time Seen: 08:46 Travel History International Travel<30 Days: No Contact w/Intl Traveler<30Days: No Known Affected Area: No History of Present Illness HPI 57yo female admitted with sepsis possible urogenital in origin. Consult placed due to large pelvic mass. Patient relates a long history of very large fibroids delineated well in CT/MRI/US images and impressions since 2005 in her record. Patient states although she has some pelvic pain she does usually completely empty bladder and denies voiding hesitancy, Relates dysuria only recently. Patient has not considered surgery in the past Para: 3 History Past Medical History Narrative Medical COPD Morbid Obesity Valvular heart disease DVT with chronic left leg lymphedema HTN Hypothyroid Overactive bladder Past Surgical History Narrative Surgical section x 3 Allergies-Medications (Allergen,Severity, Reaction): Coded Allergies: *MDRO Multi-Drug Resistant Organism (Verified Allergy, Unknown, 06/08/17) MRSA ESBL codeine (Unverified Adverse Reaction, Severe, N/V, 06/08/17) Home Meds Active Scripts Ondansetron Odt (Zofran Odt)4 Mg Tab4 Mg SL Q6HR PRN (Nausea/Vomiting) 3 Days Ref 0 Prov:Yeimy Pineda 05/25/17 Nystatin Topical (Nystop Topical)100,000 Unit/Gm Powd1 Applic TOPICAL Q12HR # 60 GM Ref 0 Prov:Yeimy Pineda 05/25/17 Nitrofurantoin Monohydrate Macrocrystals (Macrobid)100 Mg Xbt813 Mg PO BID 7 Days Ref 0 Prov:Yeimy Pineda 05/25/17 Phenazopyridine (Pyridium)100 Mg Fsm179 Mg PO Q8H PRN (DYSURIA) 2 Days Ref 0 Prov:Benson Tucker MD 05/20/17 Sulfamethoxazole-Trimethoprim (Bactrim DS)800-160 Mg Tab1 Tab PO BID #6 TAB Ref 0 Prov:Benson Tucker MD 05/20/17 Diclofenac Sodium (Voltaren)100 Gm Gel..gram.1 Applic TOPICAL Q6HR #1 TUBE Ref 5 Prov:Thania Rogers MD 03/24/17 Albuterol 8.5 GM Inh (Proair Hfa 8.5 GM Inh)90 Mcg/Act Aer2 Puff INH Q4-6H PRN ( SHORTNESS OF BREATH) #1 INHALER Ref 11 108 mcg/actuation Prov:Thania Rogers MD 03/24/17 Furosemide 40 Mg Tab40 Mg PO DAILY #30 TAB Ref 11 Prov:Thania Rogers MD 03/24/17 Insulin Glargine Inj (Lantus Solostar Pen Inj)300 Unit/3 Ml Pen30 Units SQ HS # 6 PEN Ref 11 Prov:Thania Rogers MD 03/24/17 Ondansetron Odt (Zofran Odt)4 Mg Tab4 Mg SL Q6HR PRN (Nausea/Vomiting) #60 TAB Ref 4 Prov:Thania Rogers MD 03/24/17 Respiratory Therapy Supplies (Nebulizer Air Tube/Plugs)1 Mis Mis #1 Unit Prov:Thania Rogers MD 03/12/17 Misc. Devices (Roller Walker)1 Mis Mis #[address] .[address] Now Prov:Thania Rogers MD 03/12/17 Gabapentin 600 Mg Tab1,200 Mg PO TID #180 TAB Ref 0 Prov:Thania Rogers MD 02/21/17 Ondansetron Odt 4 Mg Tab4 Mg SL Q8HR PRN (Nausea/Vomiting) #60 TAB Prov:Thania Rogers MD 02/17/17 Solifenacin (Vesicare)10 Mg Tab10 Mg PO DAILY #30 TAB Ref 5 Prov:Thania Rogers MD 02/17/17 Ibuprofen 600 Mg Mdp886 Mg PO Q6H PRN (Pain/Inflammation) #90 TAB Ref 6 Prov:Thania Rogers MD 01/25/17 Solifenacin (Vesicare)10 Mg Tab10 Mg PO DAILY #30 TAB Ref 0 Prov:Chapincito Boateng MD 01/05/17 Methylprednisolone Dosepak 4 Dspk4 Mg PO DIRECTED #1 DSPK Ref 0 Per Pharmacist Direction Prov:Thania Rogers MD 12/14/16 Potassium Chloride ER (K-Tab)20 Meq Tab20 Meq PO DAILY #30 TAB Ref 6 Prov:Thania Rogers MD 12/09/16 Valsartan (Diovan)40 Mg Tab40 Mg PO DAILY #60 TAB Ref 5 Prov:Thania Rogers MD 12/09/16 Metoprolol Tartrate 25 Mg Tab25 Mg PO Q12HR #60 TAB Ref 6 Prov:Thania Rogers MD 12/09/16 Ranitidine (Zantac)150 Mg Ifm090 Mg PO BID #120 TAB Ref 3 Prov:Thania Rogers MD 12/09/16 Spironolactone (Aldactone)50 Mg Tab50 Mg PO DAILY #90 TAB Ref 3 Prov:Thania Rogers MD 10/19/16 Levothyroxine 75 Mcg Tab75 Mcg PO DAILY #30 TAB Ref 11 Prov:Thania Rogers MD 09/08/16 Reported Medications Escitalopram (Lexapro)10 Mg Tab10 Mg PO DAILY #90 TAB Ref 0 09/07/16 Physical Exam Vital Signs Date Time Temp Pulse Resp B/P Pulse Ox O2 Delivery O2 Flow Rate FiO2 06/11/17 04:00 97.6 94 20 130/76 96 06/11/17 04:00 Nasal Cannula 3.00 06/11/17 00:00 Nasal Cannula 3.00 06/11/17 00:00 97.8 95 20 127/77 94 06/10/17 20:30 93 06/10/17 20:00 97.7 95 20 121/73 98 06/10/17 19:27 97 Nasal Cannula 3.00 06/10/17 16:00 98.1 98 20 119/75 98 06/10/17 12:47 20 06/10/17 12:00 98.3 95 20 119/82 95 Narrative GENERAL: Well-nourished, well-developed patient. SKIN: Warm and dry. HEAD: Normocephalic and atraumatic. ABDOMEN/GI: Abdomen soft, non-tender, bowel sounds present, no rebound, no guarding. Very obese with ventral hernia noted GENITOURINARY: External Genitalia: intact and normal in appearance. Large pelvic mass palpable impinging on the bladder on bimanual exam. Very small intoitus, unable to visualize the cervix without speculum exam which would be extraordinarily difficult given the patient's habitus. Cannot palpate either adnexa. No pain with palpation EXTREMITIES: Massive lymphedema left extremity BACK: Nontender without obvious deformity. No CVA tenderness. NEUROLOGICAL: Awake and alert. Motor and sensory grossly within normal limits. Five out of 5 muscle strength in all muscle groups. Normal speech. Data Data Vital Signs Reviewed: Yes Orders (Hub Use Only)Inp Phy Cons/Ref (06/10/17 ) Diet Diabetic (06/10/17 Lunch) Insulin Detemir Inj (Levemir Inj) (06/10/17 21:00) Complete Blood Count With Diff (06/10/17 15:00) Lactic Acid Sepsis Protocol (06/10/17 15:00) Can Sealer Clear For Discharge (06/10/17 ) Wound Care (06/10/17 15:16) Patient Transfer (06/10/17 ) Consult Gynecology (06/10/17 ) (Hub Use Only)Inp Phy Cons/Ref (06/10/17 ) Act Partial Throm Time (Ptt) (06/10/17 18:01) Us Pelvis Comp Hebrew Professor/Non-Preg (06/10/17 ) Act Partial Throm Time (Ptt) (06/11/17 02:49) Act Partial Throm Time (Ptt) (06/12/17 06:00) Clotrimazole 1% Cream (Lotrimin 1% Cream (06/11/17 09:00) Complete Blood Count With Diff (06/12/17 06:00) Basic Metabolic Panel (Bmp) (06/12/17 06:00) Complete Blood Count With Diff (06/11/17 08:41) Labs Last 48 hours Impressions Pelvis Ultrasound 06/10/17 0000 Signed Impressions: Service Date/Time: May 22:22 - CONCLUSION: 1. 13.1 cm cystic mass between uterus and bladder similar to recent CT. This cystic mass contains some debris but no definite solid component. Uterus is mildly enlarged with probable fibroid. Exam severely limited by patient's body habitus. Russell Campbell MD Laboratory Tests Test 06/10/17 06/10/17 06/10/17 06/11/17 09:55 15:39 19:02 03:30 Activated Partial 36.0 45.0 42.0 Thromboplast Time White Blood Count 15.0 Red Blood Count 4.05 Hemoglobin 10.7 Hematocrit 34.9 Mean Corpuscular Volume 86.4 Mean Corpuscular Hemoglobin 26.5 Mean Corpuscular Hemoglobin 30.6 Concent Red Cell Distribution Width 15.1 Platelet Count 139 Mean Platelet Volume 8.3 Neutrophils (%) (Auto) 76.9 Lymphocytes (%) (Auto) 15.1 Monocytes (%) (Auto) 7.7 Eosinophils (%) (Auto) 0.1 Basophils (%) (Auto) 0.2 Neutrophils # (Auto) 11.5 Lymphocytes # (Auto) 2.3 Monocytes # (Auto) 1.2 Eosinophils # (Auto) 0.0 Basophils # (Auto) 0.0 CBC Comment DIFF FINAL Differential Comment Lactic Acid Level 1.7 Date/Time Procedure Status Source Growth 06/09/17 01:15 Gram Stain - Final Resulted Wound Abdomen 06/09/17 01:15 Wound Culture - Preliminary Resulted Wound Abdomen 06/09/17 01:00 Urine Culture - Final Complete Urine Clean Catch 50-100,000 CFU/ML MIXED GRAM POSITIVE... 06/09/17 00:05 Aerobic Blood Culture - Preliminary Resulted Blood Peripheral NO GROWTH IN 1 DAY 06/09/17 00:05 Anaerobic Blood Culture - Preliminary Resulted Blood Peripheral NO GROWTH IN 1 DAY MDM Plan 57yo P3 with history of uterine fibroids in the past now with pelvic mass. 1. Pelvic mass - Most likely uterine fibroids which have been documented in the prior films. Difficult to interpret and exam due to patient habitus. MRI would be the best modality to evaluate. Will order tumor markers but cannot tell whether this mass is uterine vs adnexa in origin. This patient is a very poor surgical candidate due to her ongoing medical problems and morbid obesity. If adnexal/ovarian origin would consider a vest busheler oncology consultation. 2. possible urosepsis - post void bladder scan may be helpful as if patient has large (greater than 150cc) residual, this would increase the issues with recurrent bladder infections. Present organism is most likely a contaminant. Admitting diagnosis: Urosepsis Patient Instructions: Heart Failure (DC) Briana Toth MD Jun 11, 2017 08:50
--- NOTE | 2017-06-11 08:54 | HHI.FPPN ---
Subjective Remarks Overall feeling better. Still having lower abdominal pressure especially after voids. She is requesting to stop her lasix because this exacerbates her discomfort. She is OOB to use the restroom without difficulty. Her breathing is improving, but still requiring n.c. 2 L. Denies fevers or chills. Wondering when she will be able to go home. Seen and evaluated with Dr. Toth. (Magdiel Rivera MD, R3) Objective Vitals Vital Signs Date Time Temp Pulse Resp B/P Pulse Ox O2 Delivery O2 Flow Rate FiO2 06/11/17 04:00 97.6 94 20 130/76 96 06/11/17 04:00 Nasal Cannula 3.00 06/11/17 00:00 Nasal Cannula 3.00 06/11/17 00:00 97.8 95 20 127/77 94 06/10/17 20:30 93 06/10/17 20:00 97.7 95 20 121/73 98 06/10/17 19:27 97 Nasal Cannula 3.00 06/10/17 16:00 98.1 98 20 119/75 98 06/10/17 12:47 20 06/10/17 12:00 98.3 95 20 119/82 95 I/O 06/10/17 06/10/17 06/10/17 06/11/17 06/11/17 06/11/17 07:00 15:00 23:00 07:00 15:00 23:00 Intake Total 2388 ml 741 ml 1130 ml Output Total 850 ml 350 ml Balance 1538 ml 741 ml 780 ml Intake Oral 360 ml IV Total 2028 ml 741 ml 1130 ml Output Urine Total 850 ml 350 ml Emesis 0 ml # Voids 1 # Bowel Movements 0 (Magdiel Rivera MD, R3) Result Diagram: 06/10/17 1539 06/10/17 0205 Imaging Last 72 hours Impressions Pelvis Ultrasound 06/10/17 0000 Signed Impressions: Service Date/Time: May 22:22 - CONCLUSION: 1. 13.1 cm cystic mass between uterus and bladder similar to recent CT. This cystic mass contains some debris but no definite solid component. Uterus is mildly enlarged with probable fibroid. Exam severely limited by patient's body habitus. Russell Campbell MD CT Angiography 06/09/17 0235 Signed Impressions: Service Date/Time: Friday, June 09, 2017 03:53 - CONCLUSION: 1. Positive for pulmonary embolism in the left lower lobe. 2. Goiter. Kyle Pearson MD Chest X-Ray 06/09/17 0129 Signed Impressions: Service Date/Time: Friday, June 09, 2017 01:53 - CONCLUSION: No infiltrates seen. Kyle Pearson MD Renal Ultrasound 06/09/17 0000 Signed Impressions: Service Date/Time: Friday, June 09, 2017 15:33 - CONCLUSION: 1. The right kidney is unremarkable in appearance. 2. Left kidney could not be visualized or evaluated. 3. Bladder was not visualized as well. Charles Castillo MD Lower Extremity Ultrasound 06/09/17 0000 Signed Impressions: Service Date/Time: Friday, June 09, 2017 16:57 - CONCLUSION: Limited suboptimal examination. Deep venous thrombosis cannot be excluded. Charles Castillo MD Objective Remarks GEN: NAD resting comfortably morbid obesity HEENT: Dry mucus membranes, PERRL CV: RRR< tachycardia, faint heart sounds RESP: CTAB anteriorly. Normal respiratory effort. EXT: significant lymph edema and swelling in both lower extremities. (Magdiel Rivera MD, R3) A/P Assessment and Plan 57 yo F presenting to ED with sepsis, SOB and N/V. (Magdiel Rivera MD, R3) Attending Attestation Patient seen and examined. Case reviewed and discussed with Dr. Rivera. Agree with plan of care as discussed with me and documented in the resident note. MRI pending. Await tumor markers Appreciate [employer] expertise Resume vesicare (Ilsa Baeza MD) Problem List: (1) Sepsis Status: Acute Plan: Afebrile, leukocytosis improving. UA showing 50-100,000 mixed gram positive bacteria (likely contaminant). Wound cultures showing heavy skin dina. Blood cultures pending. Lactic acid 2.6 on admission, down trending CXR normal on admission. Continue with NS at maintenance. Continue Rocephin 1 g q 24 hours for pyelonephritis. Continue to follow cultures and sensitivities. D/c Zosyn and vancomycin 06/09. (2) Pulmonary embolism Status: Chronic Plan: Heparin gtt --> PO Coumadin 4 mg PO. Patient was on Coumadin for prior PE in 2007 and would like to resume. O2 sat in ED 90%, started on 4L NC -> weaned to 2L with O2 sat at 97% CXR normal on admission CT pulmonary angiogram showed pulmonary embolism in the left lower lobe. ECG on admission showing sinus tachycardia with no ST segment changes, repeating q6hr. also showed T-wave inversions in V1, V2, V3, and lead III, that were new since 2014. May be related to demand ischemia. Troponin 0.12 on admission, decreased to 0.10 after 6 hours. Patient reports using inhaler occasionally at home, given duonebs in ED Continuing Duonebs, albuterol PRN PO Lasix 20 mg PO daily. Potassium 20 mEq daily (3) Pelvic mass Status: Acute Plan: CT pelvis showing: " CT on 05/25/17 showing: "9.4 x 9.4 solid lesion with scattered calcifications in the central hypodense area which is loculated in the anterior pelvis superior to the urinary bladder. Posterior to the solid mass is a cystic lesion measuring 11.1 cm." US showing: "Team 0.1 cm cystic mass between the uterus and bladder similar to recent CT. Uterus is mildly enlarged with probable fibroid." Evaluated by Dr. Toth, who would recommend avoiding a surgical procedure given the patient's high risk of complications. Recommend getting tumor markers, starting a daily prophylactic antibiotic for UTI, and possibly getting an MRI if possible to further identify the cyst/mass. We appreciate her assistance and expertise. (4) COSME (acute kidney injury) Status: Acute Plan: Resolved with IV hydration. (5) Nausea & vomiting Status: Acute Plan: Resolved. Zofran 4mg IV q6hr PRN (6) Diabetes mellitus type 2 Status: Chronic Plan: BSG <200 x 24 horus. Takes Lantus 30 units daily at home Basa levemir at 16 units BID. Continue. Switch to diabetic diet. (7) Neuropathy Status: Chronic Plan: continuing home Gabapentin 1.200 mg TID (8) HTN (hypertension) Status: Chronic Plan: Continuing home Metoprolol tartrate 25mg po BID, Valsartan 40mg po daily , Spironolactone 50mg po daily BP at goal. (9) Depression Status: Chronic Plan: Continuing home Lexapro 10mg po daily (10) Hypothyroidism Status: Chronic Plan: Continuing home Levothyroxine 75 mcg po daily (11) Nutrition, metabolism, and development symptoms Status: Acute Plan: full diet, IVFs as discussed above DVT prophylaxis - heparin gtt. Continuing home Famotidine [address] Baeza (Magdiel Rivera MD, R3) Problem Qualifiers (1) Sepsis: Qualified Code: A41.9 - Sepsis, due to unspecified organism (2) HTN (hypertension): Qualified Code: I10 - Essential hypertension (3) Depression: Qualified Code: F32.9 - Depression, unspecified depression type Magdiel Rivera MD, R3 Jun 11, 2017 08:54 Ilsa Baeza MD Jun 12, 2017 15:21
[2017-06-11] MEDS: SODIUM CHLORIDE 0.9% FLUSH 10 ML FLUSH IV FLUSH SCH ×2 (09:00→21:00)
[2017-06-11] MEDS: INSULIN DETEMIR 100 UNITS/ML VIAL SQ SCH ×2 (09:00→23:28)
[2017-06-11] MEDS: SPIRONOLACTONE 50 MG TAB PO SCH (09:00)
[2017-06-11] MEDS: FUROSEMIDE 20 MG TAB PO SCH (09:00)
[2017-06-11] MEDS: FAMOTIDINE 20 MG TAB PO SCH ×2 (09:15→22:21)
[2017-06-11] MEDS: POTASSIUM CHLORIDE 20 MEQ CONTROLLED RELEASE TAB PO SCH (09:15)
[2017-06-11] MEDS: ESCITALOPRAM OXALATE 10 MG TAB PO SCH (09:15)
[2017-06-11] MEDS: METOPROLOL TARTRATE 25 MG TAB PO SCH ×2 (09:15→22:21)
[2017-06-11] MEDS: VALSARTAN 40 MG TAB PO SCH (09:15)
[2017-06-11] MEDS: GABAPENTIN 300 MG CAP PO SCH ×3 (09:16→17:43)
[2017-06-11] MEDS: ACETAMINOPHEN/HYDROcodone 325 MG/10 MG TAB PO PRN ×2 (09:39→22:22)
[2017-06-11] MEDS ORDERED: PHARMACY ORDERED LAB ONE (09:45)
[2017-06-11] MEDS: CLOTRIMAZOLE 1% CREAM 15 GM TOPICAL SCH ×2 (10:22→21:00)
[2017-06-11] MEDS: cefTRIAXone INJ 1,000 MG in SODIUM CHLORIDE 0.9% INJ 100 ML IV SCH (14:37)
[2017-06-11] MEDS: HEPARIN-D5W 25,000 U/250 ML 250 ML IV SCH (14:50)
[2017-06-11] MEDS: WARFARIN SOD 4 MG TAB PO SCH (16:00)
[2017-06-11 21:39] LABS: AUTOMATED NEUTROPHIL # 6.9 TH/MM3 (1.8-7.7); BASOPHIL # 0.1 TH/MM3 (0-0.2); BASOPHIL % 0.5 % (0.0-2.0); EOSINOPHIL # 0.2 TH/MM3 (0-0.4); EOSINOPHIL % 2.1 % (0.0-4.0); HEMATOCRIT 34.8 % (35.0-46.0); LYMPH % 29.2 % (9.0-44.0); LYMPHOCYTE # 3.4 TH/MM3 (1.0-4.8); MEAN CELL VOLUME 85.6 FL (80.0-100.0); MEAN CORPUSCULAR HEMOGLOBIN 26.4 PG (27.0-34.0); MEAN CORPUSCULAR HGB CONC 30.9 % (32.0-36.0); MONO % 8.4 % (0.0-8.0); NEUT % 59.8 % (16.0-70.0); PLATELET COUNT 145 TH/MM3 (150-450); RED BLOOD COUNT 4.06 MIL/MM3 (4.00-5.30); RED CELL DISTRIBUTION WIDTH 15.1 % (11.6-17.2); WHITE BLOOD COUNT 11.5 TH/MM3 (4.0-11.0)
[2017-06-11 21:45] LABS: HEMO FLAGS AUTO DIFF
[2017-06-11 21:57] LABS: INTERNATIONAL NORMALIZED RATIO 1.2 RATIO; PROTHROMBIN TIME - PATIENT 12.8 SEC (9.8-11.6)
[2017-06-11 22:15] LABS: SCAN/DIFF AUTO DIFF CONFIRMED
[2017-06-11] MEDS: PROMETHAZINE HCL 25 MG TAB PO PRN (22:21)
[2017-06-12] VITALS (7 sets, daily range): BP systolic 135–162; BP diastolic 74–98; PULSE 84–101; RESP 20–24; TEMP 97.5–98.4; O2SAT 96–99
[2017-06-12] MEDS: HEPARIN-D5W 25,000 U/250 ML 250 ML IV SCH (04:12)
[2017-06-12] MEDS: SODIUM CHLOR 0.9% 1000 ML INJ 1,000 ML IV SCH (05:48)
[2017-06-12] MEDS: LEVOTHYROXINE SODIUM 75 MCG TAB PO SCH (05:55)
--- NOTE | 2017-06-12 06:07 | HHI.FPPN ---
Subjective Remarks Having increasing suprapubic and vaginal pain especially with voiding. Up all night voiding every 20-30 minutes. Feeling feverish today. Breathing at baseline. No new cp. (Magdiel Rivera MD, R3) Objective Vitals Vital Signs Date Time Temp Pulse Resp B/P Pulse Ox O2 Delivery O2 Flow Rate FiO2 06/12/17 04:01 Nasal Cannula 2.00 06/12/17 04:01 97.8 84 20 135/74 98 06/12/17 00:08 Nasal Cannula 2.00 06/12/17 00:08 98.4 100 24 145/78 96 06/11/17 20:32 103 06/11/17 20:00 97.9 102 24 157/62 99 06/11/17 20:00 Nasal Cannula 2.00 06/11/17 17:40 99 Nasal Cannula 3.00 06/11/17 16:00 97.8 84 20 140/80 99 06/11/17 12:00 97.6 89 20 160/77 96 06/11/17 11:30 98 Nasal Cannula 3.00 06/11/17 08:07 108 06/11/17 08:00 Nasal Cannula 3.00 06/11/17 08:00 97.6 92 20 131/70 98 I/O 06/11/17 06/11/17 06/11/17 06/12/17 06/12/17 06/12/17 06:59 14:59 22:59 06:59 14:59 22:59 Intake Total 1130 ml 1430 ml 1957 ml Output Total 350 ml 1275 ml 1300 ml Balance 780 ml 155 ml 657 ml Intake Oral 0 ml 480 ml IV Total 1130 ml 1430 ml 1477 ml Output Urine Total 350 ml 1275 ml 1300 ml # Voids 1 # Bowel Movements 0 0 (Magdiel Rivera MD, R3) Result Diagram: 06/11/17212206/10/17 0205 Objective Remarks GEN: NAD resting comfortably morbid obesity HEENT: Dry mucus membranes, PERRL CV: RRR< tachycardia, faint heart sounds RESP: CTAB anteriorly. Normal respiratory effort. EXT: significant lymph edema and swelling in both lower extremities. (Magdiel Rivera MD, R3) A/P Assessment and Plan 57 yo F presenting to ED with sepsis, SOB and N/V. (Magdiel Rivera MD, R3) Attending Attestation Patient seen and examined. Case reviewed and discussed Agree with plan of care as discussed with me and documented in the resident note. (Ilsa Baeza MD) Problem List: (1) Sepsis Status: Acute Plan: Afebrile, leukocytosis improving. UA showing 50-100,000 mixed gram positive bacteria (likely contaminant). Will stop ABX. Wound cultures showing heavy skin dina. Blood cultures negative to date. Lactic acid 2.6 on admission, down trending CXR normal on admission. Discontinue with NS at maintenance. Discontinue Rocephin 1 g q 24 hours 06/12. D/c Zosyn and vancomycin 06/09. (2) Pulmonary embolism Status: Chronic Plan: Heparin gtt --> PO Coumadin 4 mg PO. INR 06/11 was 1.2 - increase coumadin to 6 mg daily. Patient was on Coumadin for prior PE in 2007 and would like to resume. O2 sat in ED 90%, started on 4L NC -> weaned to 2L with O2 sat at 97% Wean as tolerated. CXR normal on admission CT pulmonary angiogram showed pulmonary embolism in the left lower lobe. ECG on admission showing sinus tachycardia with no ST segment changes, repeating q6hr. also showed T-wave inversions in V1, V2, V3, and lead III, that were new since 2013. May be related to demand ischemia. Troponin 0.12 on admission, decreased to 0.10 after 6 hours. Patient reports using inhaler occasionally at home, given duonebs in ED Continuing Duonebs, albuterol PRN PO Lasix 20 mg PO daily. Potassium 20 mEq daily (3) Pelvic mass Status: Acute Plan: CT pelvis showing: " CT on 05/25/17 showing: "9.4 x 9.4 solid lesion with scattered calcifications in the central hypodense area which is loculated in the anterior pelvis superior to the urinary bladder. Posterior to the solid mass is a cystic lesion measuring 11.1 cm." US showing: "Team 0.1 cm cystic mass between the uterus and bladder similar to recent CT. Uterus is mildly enlarged with probable fibroid." Will follow up with MRI. Vesicare 10 mg daily for urinary symptoms. Evaluated by Dr. Toth, who would recommend avoiding a surgical procedure given the patient's high risk of complications. Recommend getting tumor markers, starting a daily prophylactic antibiotic for UTI, and possibly getting an MRI if possible to further identify the cyst/mass. We appreciate her assistance and expertise. (4) COSME (acute kidney injury) Status: Acute Plan: Resolved, cont to monitor. (5) Nausea & vomiting Status: Acute Plan: Phenergan PO not working well - switch to IV. Consider reglan if persistent N/V. (6) Diabetes mellitus type 2 Status: Chronic Plan: BSG <200 x 24 horus. 77 this on 06/12 in AM - hold Levemir for now, continue ISS. Takes Lantus 30 units daily at home. Switch to diabetic diet. (7) Neuropathy Status: Chronic Plan: continuing home Gabapentin 1.200 mg TID (8) HTN (hypertension) Status: Chronic Plan: Continuing home Metoprolol tartrate 25mg po BID, Valsartan 40mg po daily , Spironolactone 50mg po daily BP at goal. (9) Depression Status: Chronic Plan: Continuing home Lexapro 10mg po daily (10) Hypothyroidism Status: Chronic Plan: Continuing home Levothyroxine 75 mcg po daily (11) Nutrition, metabolism, and development symptoms Status: Acute Plan: full diet, D/c IVF DVT prophylaxis - heparin gtt. Continuing home Famotidine [address] Baeza (Magdiel Rivera MD, R3) Problem Qualifiers (1) Sepsis: Qualified Code: A41.9 - Sepsis, due to unspecified organism (2) HTN (hypertension): Qualified Code: I10 - Essential hypertension (3) Depression: Qualified Code: F32.9 - Depression, unspecified depression type Magdiel Rivera MD, R3 Jun 12, 2017 06:06 Ilsa Baeza MD Jun 12, 2017 15:20
[2017-06-12] MEDS: INSULIN ASPART SUPPLEMENTAL SCALE SQ SCH ×4 (06:09→20:52)
[2017-06-12] MEDS: SPIRONOLACTONE 50 MG TAB PO SCH (08:51)
[2017-06-12] MEDS: FUROSEMIDE 20 MG TAB PO SCH (08:52)
[2017-06-12] MEDS: METOPROLOL TARTRATE 25 MG TAB PO SCH ×2 (08:52→20:59)
[2017-06-12] MEDS: ESCITALOPRAM OXALATE 10 MG TAB PO SCH (08:52)
[2017-06-12] MEDS: POTASSIUM CHLORIDE 20 MEQ CONTROLLED RELEASE TAB PO SCH (08:52)
[2017-06-12] MEDS: GABAPENTIN 300 MG CAP PO SCH ×3 (08:53→17:08)
[2017-06-12] MEDS: ACETAMINOPHEN/HYDROcodone 325 MG/10 MG TAB PO PRN (08:53)
[2017-06-12] MEDS: FAMOTIDINE 20 MG TAB PO SCH ×2 (08:53→20:59)
[2017-06-12] MEDS: PROMETHAZINE HCL 25 MG TAB PO PRN ×2 (08:53→19:26)
[2017-06-12] MEDS: INSULIN DETEMIR 100 UNITS/ML VIAL SQ SCH (08:53)
[2017-06-12] MEDS ORDERED: PROMETHAZINE INJ 25 MG/ML VIAL IM PRN (09:30)
[2017-06-12] MEDS ORDERED: GADODIAMIDE PF 287 MG/ML 10 ML VIAL (for RAD MRI) IV ONE (10:06)
[2017-06-12 12:26] LABS: APTT (PATIENT) 40.4 SEC (24.3-30.1); INTERNATIONAL NORMALIZED RATIO 1.3 RATIO; PROTHROMBIN TIME - PATIENT 14.5 SEC (9.8-11.6)
[2017-06-12 12:33] LABS: AUTOMATED NEUTROPHIL # 7.2 TH/MM3 (1.8-7.7); BASOPHIL # 0.1 TH/MM3 (0-0.2); BASOPHIL % 0.7 % (0.0-2.0); EOSINOPHIL # 0.2 TH/MM3 (0-0.4); EOSINOPHIL % 2.2 % (0.0-4.0); HEMATOCRIT 36.5 % (35.0-46.0); LYMPH % 19.9 % (9.0-44.0); LYMPHOCYTE # 2.1 TH/MM3 (1.0-4.8); MEAN CELL VOLUME 85.2 FL (80.0-100.0); MEAN CORPUSCULAR HEMOGLOBIN 26.7 PG (27.0-34.0); MEAN CORPUSCULAR HGB CONC 31.3 % (32.0-36.0); MONO % 9.4 % (0.0-8.0); NEUT % 67.8 % (16.0-70.0); PLATELET COUNT 127 TH/MM3 (150-450); RED BLOOD COUNT 4.29 MIL/MM3 (4.00-5.30); RED CELL DISTRIBUTION WIDTH 14.7 % (11.6-17.2); WHITE BLOOD COUNT 10.6 TH/MM3 (4.0-11.0)
[2017-06-12 12:34] LABS: HEMO FLAGS AUTO DIFF
[2017-06-12 12:46] LABS: BICARBONATE 29.4 MEQ/L (21.0-32.0); POTASSIUM 3.4 MEQ/L (3.5-5.1)
--- NOTE | 2017-06-12 12:54 | RADRPT ---
EXAM DATE/TIME: 06/12/2017 09:37 [facility] COMPARISON: US PELVIS - COMPLETE (CATEGORY CONSULTANT,NON-PREG), June 10, 2017, 22:22. CT ABDOMEN & PELVIS W/O CONTRAST, Augus 2016, 19:58. INDICATIONS : Mass. CONTRAST: 30 cc Omniscan (gadodiamide) IV MEDICAL HISTORY : Hypertension. Diabetes mellitus type 2. Cardiovascular disease. SURGICAL HISTORY : section. ENCOUNTER: Initial ACUITY: 1 day PAIN SCORE: 5/10 LOCATION: pelvis TECHNIQUE: Multiplanar, multisequence magnetic resonance imaging of the pelvis was performed. FINDINGS: REPRODUCTIVE: There is a large cystic mass measuring 10.6 x 11.4 cm which appears to arise from the uterus. There i s a cystic and solid component anteriorly measuring 8.6 x 7.5 cm. There is enhancement of the anterio r portion. Normal-appearing uterus not seen. Ovaries not well seen. BLADDER: No wall thickening or mass. RETROPERITONEUM: There is no lymphadenopathy. Vascular structures are within normal limits. BOWEL/MESENTERY: Visualized small and large bowel demonstrates no acute abnormality. There is no free fluid. INGUINAL: No lymphadenopathy or hernia. MUSCULOSKELETAL: Bone marrow signal is within normal limits. CONCLUSION: 1. Large mass appears to arise from the uterus with cystic components posteriorly measuring 10.6 x 11 .4 cm. Anterior component is cystic and solid with enhancement. CATEGORY CONSULTANT surgical consultation. Melchor Keith MD on June 12, 2017 at 12:48 Board Certified Radiologist. This report was verified electronically.
[2017-06-12 13:08] LABS: PLATELET ESTIMATE SMEAR LOW (NORMAL); PLATELET MORPHOLOGY NORMAL (NORMAL); SCAN/DIFF AUTO DIFF CONFIRMED
[2017-06-12] MEDS: VALSARTAN 40 MG TAB PO SCH (14:07)
[2017-06-12] MEDS: SODIUM CHLORIDE 0.9% FLUSH 10 ML FLUSH IV FLUSH SCH ×2 (14:07→20:59)
[2017-06-12] MEDS: CLOTRIMAZOLE 1% CREAM 15 GM TOPICAL SCH ×2 (14:08→21:00)
[2017-06-12] MEDS: TOLTERODINE TARTRATE 4 MG CAP LA PO SCH (14:08)
[2017-06-12] MEDS: WARFARIN SOD 6 MG TAB PO SCH (17:08)
[2017-06-13] VITALS (8 sets, daily range): BP systolic 123–139; BP diastolic 65–85; PULSE 89–101; RESP 18–20; TEMP 97.1–97.9; O2SAT 93–100
[2017-06-13 03:49] LABS: THROMBIN TIME FOR LA ND sec (13-19)
[2017-06-13 05:26] LABS: AUTOMATED NEUTROPHIL # 6.4 TH/MM3 (1.8-7.7); BASOPHIL # 0.1 TH/MM3 (0-0.2); BASOPHIL % 0.9 % (0.0-2.0); EOSINOPHIL # 0.3 TH/MM3 (0-0.4); EOSINOPHIL % 2.8 % (0.0-4.0); HEMATOCRIT 36.3 % (35.0-46.0); LYMPH % 22.6 % (9.0-44.0); LYMPHOCYTE # 2.2 TH/MM3 (1.0-4.8); MEAN CELL VOLUME 84.4 FL (80.0-100.0); MEAN CORPUSCULAR HEMOGLOBIN 26.6 PG (27.0-34.0); MEAN CORPUSCULAR HGB CONC 31.4 % (32.0-36.0); MONO % 9.2 % (0.0-8.0); NEUT % 64.5 % (16.0-70.0); PLATELET COUNT 124 TH/MM3 (150-450); RED CELL DISTRIBUTION WIDTH 14.8 % (11.6-17.2); WHITE BLOOD COUNT 9.9 TH/MM3 (4.0-11.0)
[2017-06-13 05:28] LABS: HEMO FLAGS AUTO DIFF
[2017-06-13 05:31] LABS: INTERNATIONAL NORMALIZED RATIO 1.6 RATIO; PROTHROMBIN TIME - PATIENT 17.8 SEC (9.8-11.6)
[2017-06-13] MEDS: HEPARIN-D5W 25,000 U/250 ML 250 ML IV SCH (05:55)
[2017-06-13] MEDS: LEVOTHYROXINE SODIUM 75 MCG TAB PO SCH (05:56)
[2017-06-13] MEDS: ACETAMINOPHEN/HYDROcodone 325 MG/10 MG TAB PO PRN (05:57)
[2017-06-13 06:14] LABS: BANDS 1 % (0-6); CORRECTED NUCLEATED RBC 3 /100 WBC (0-0); EOSINOPHILS 2 % (0-4); NEUTROPHIL # MANUAL DIFF 7.1 TH/MM3 (1.8-7.7); PLATELET ESTIMATE SMEAR LOW (NORMAL); PLATELET MORPHOLOGY NORMAL (NORMAL); POLYS (SEG NEUTROPHILS) 71 % (16-70); SCAN/DIFF FINAL DIFF MANUAL; WBC DIFF SAMPLE 100
[2017-06-13 06:27] LABS: BICARBONATE 31.6 MEQ/L (21.0-32.0); POTASSIUM 3.4 MEQ/L (3.5-5.1)
[2017-06-13] MEDS: INSULIN ASPART SUPPLEMENTAL SCALE SQ SCH ×4 (06:35→21:00)
[2017-06-13] MEDS: FAMOTIDINE 20 MG TAB PO SCH ×2 (09:00→21:40)
[2017-06-13] MEDS: TOLTERODINE TARTRATE 4 MG CAP LA PO SCH (09:00)
[2017-06-13] MEDS: METOPROLOL TARTRATE 25 MG TAB PO SCH ×2 (09:00→21:40)
[2017-06-13] MEDS: GABAPENTIN 300 MG CAP PO SCH ×3 (09:00→18:26)
[2017-06-13] MEDS: ESCITALOPRAM OXALATE 10 MG TAB PO SCH (09:00)
[2017-06-13] MEDS: CLOTRIMAZOLE 1% CREAM 15 GM TOPICAL SCH ×2 (09:00→21:00)
[2017-06-13] MEDS: VALSARTAN 40 MG TAB PO SCH (09:00)
[2017-06-13] MEDS: POTASSIUM CHLORIDE 20 MEQ CONTROLLED RELEASE TAB PO SCH (09:00)
[2017-06-13] MEDS: SPIRONOLACTONE 50 MG TAB PO SCH (09:00)
[2017-06-13] MEDS: SODIUM CHLORIDE 0.9% FLUSH 10 ML FLUSH IV FLUSH SCH ×2 (09:00→21:00)
[2017-06-13] MEDS: FUROSEMIDE 20 MG TAB PO SCH (09:00)
--- NOTE | 2017-06-13 09:20 | HHI.FPPN ---
Subjective Remarks Patient is "Feeling better" today Urinating less and able to sleep Minimal abdominal pain No N/V/D. No CP or SOB. Objective Vitals Vital Signs Date Time Temp Pulse Resp B/P (MAP) Pulse Ox O2 Delivery O2 Flow Rate FiO2 06/13/17 06:28 98 Nasal Cannula 3.00 06/13/17 04:00 97.9 101 20 127/75 (92) 97 06/13/17 00:00 97.6 92 18 130/85 (100) 98 06/12/17 20:09 96 06/12/17 20:00 97.9 101 20 154/78 (103) 98 06/12/17 20:00 Nasal Cannula 2.00 06/12/17 19:35 95 06/12/17 16:25 98.0 89 20 152/85 (107) 99 06/12/17 14:08 18 06/12/17 13:21 98 Nasal Cannula 2.00 I/O 06/12/17 06/12/17 06/12/17 06/13/17 06/13/17 06/13/17 07:00 15:00 23:00 07:00 15:00 23:00 Intake Total 120 ml 426 ml Output Total 800 ml 800 ml 425 ml 4753 ml Balance -680 ml -374 ml -425 ml -4753 ml Intake Oral 120 ml 120 ml IV Total 306 ml Output Urine Total 800 ml 800 ml 425 ml 4753 ml # Bowel Movements 0 0 0 0 Result Diagram: 06/13/17 0449 06/13/17 0449 Imaging Last 72 hours Impressions Pelvis MRI 06/12/17 0000 Signed Impressions: Service Date/Time: Monday, June 12, 2017 09:37 - CONCLUSION: 1. Large mass appears to arise from the uterus with cystic components posteriorly measuring 10.6 x 11.4 cm. Anterior component is cystic and solid with enhancement. CONSERVATION PLANNER surgical consultation. Melchor Keith MD Objective Remarks GENERAL: Morbidly obese. No acute distress. SKIN: Warm and dry. No rash. EYES: No scleral icterus. No injection or drainage. PERRLA. EOMI. HENT: Normocephalic. Atraumatic. Mucus membranes dry. NECK: No visible JVD or lymphadenopathy. CARDIOVASCULAR: Warm and well perfused. Regular rate and rhythm. RESPIRATORY: Normal respiratory effort. Clear to auscultation bilaterally. GASTROINTESTINAL: Large ventral hernia. Nontender to palpation. MUSCULOSKELETAL: Strength grossly WNL. BACK: Without obvious deformity. NEURO/PSYCH: Afocal. Awake, alert, and oriented x3. A/P Assessment and Plan 57 yo F presenting to ED with sepsis, SOB and N/V. Found to have PE, started on heparin drip, transitioning to Coumadin. Cystic mass found on CT scan followed up with ultrasound and MRI. Patient is in stable condition currently. (1) Sepsis Status: Resolved. Plan: Afebrile, leukocytosis improving. UA showing 50-100,000 mixed gram positive bacteria (likely contaminant). Will stop ABX. Wound cultures showing heavy skin dina. Blood cultures negative to date. Lactic acid 2.6 on admission, down trending CXR normal on admission. Discontinue with NS at maintenance. Discontinue Rocephin 1 g q 24 hours 06/12. D/c Zosyn and vancomycin 06/09. (2) Pulmonary embolism Status: Chronic Plan: Heparin gtt --> PO Coumadin 4 mg PO. INR 06/13 was 1.6 - increase Coumadin to 6 mg daily. Patient was on Coumadin for prior PE in 2007 and would like to resume. O2 sat in ED 90%, started on 4L NC -> weaned to 2L with O2 sat at 97% Wean as tolerated. CXR normal on admission CT pulmonary angiogram showed pulmonary embolism in the left lower lobe. ECG on admission showing sinus tachycardia with no ST segment changes, repeating q6hr. also showed T-wave inversions in V1, V2, V3, and lead III, that were new since 2013. May be related to demand ischemia. Troponin 0.12 on admission, decreased to 0.10 after 6 hours. Patient reports using inhaler occasionally at home, given duonebs in ED Continuing Duonebs, albuterol PRN PO Lasix 20 mg PO daily. Potassium 20 mEq daily + 30 mEq on 06/13. (3) Pelvic mass Status: Acute Plan: CT pelvis showing: " CT on 05/25/17 showing: "9.4 x 9.4 solid lesion with scattered calcifications in the central hypodense area which is loculated in the anterior pelvis superior to the urinary bladder. Posterior to the solid mass is a cystic lesion measuring 11.1 cm." US showing: "Team 0.1 cm cystic mass between the uterus and bladder similar to recent CT. Uterus is mildly enlarged with probable fibroid." MRI showing: "Large mass appears to arise from the uterus with cystic components posteriorly measuring 10.6 x 11.4 cm. Anterior compartment is cystic and solid with enhancement." Vesicare 10 mg daily for urinary symptoms. Evaluated by Dr. Toth, who would recommend avoiding a surgical procedure given the patient's high risk of complications. Recommend getting tumor markers, starting a daily prophylactic antibiotic for UTI, and possibly getting an MRI if possible to further identify the cyst/mass. We appreciate her assistance and expertise. (4) Hypernatremia Status: Acute Plan: Likely from IVF - will start 250 ml free water PO q 8 hours. Check BMP in AM. (5) Nausea & vomiting Status: Acute Plan: Phenergan PO not working well - switch to IV. Consider reglan if persistent N/V. (6) Diabetes mellitus type 2 Status: Chronic Plan: BSG <200 x 24 horus. 96 this on 06/12 in AM - hold Levemir for now, continue ISS. Takes Lantus 30 units daily at home. Switch to diabetic diet. (7) Neuropathy Status: Chronic Plan: continuing home Gabapentin 1.200 mg TID (8) HTN (hypertension) Status: Chronic Plan: Continuing home Metoprolol tartrate 25mg po BID, Valsartan 40mg po daily , Spironolactone 50mg po daily BP at goal. (9) Depression Status: Chronic Plan: Continuing home Lexapro 10mg po daily (10) Hypothyroidism Status: Chronic Plan: Continuing home Levothyroxine 75 mcg po daily (11) Nutrition, metabolism, and development symptoms Status: Acute Plan: full diet, D/c IVF DVT prophylaxis - heparin gtt. Continuing home Famotidine [address] Baeza. Problem List: (1) Pulmonary embolism (2) Shortness of breath Status: Acute Plan: PE vs pneumonia vs ND vs CHF exacerbation prior PE, DVT in past O2 sat in ED 90%, started on 4L NC -> weaned to 2L with O2 sat at 97% CXR normal on admission CT pulmonary angiogram read pending ECG on admission showing sinus tachycardia with no ST segment changes, repeating q6hr Troponin 0.12 on admission, repeating q6hr CKMB ordered - repeating q6hr Patient reports using inhaler occasionally at home, given duonebs in ED Continuing Duonebs, albuterol PRN Switching home PO Lasix to IV - 20mg BID, will continue home po Potassium 20 mEq daily repeat BMP (3) Nausea & vomiting Status: Acute Plan: Phenergan PO not working well - switch to IV. Consider reglan if persistent N/V. (4) COSME (acute kidney injury) Status: Acute Plan: Resolved, cont to monitor. (5) Depression Status: Chronic Plan: Continuing home Lexapro 10mg po daily (6) HTN (hypertension) Status: Chronic Plan: Continuing home Metoprolol tartrate 25mg po BID, Valsartan 40mg po daily , Spironolactone 50mg po daily BP at goal. (7) Pelvic mass in female Status: Acute (8) Venous stasis Status: Chronic (9) Diabetes mellitus type 2 Status: Chronic Plan: BSG <200 x 24 horus. 77 this on 06/12 in AM - hold Levemir for now, continue ISS. Takes Lantus 30 units daily at home. Switch to diabetic diet. Problem Qualifiers (1) Depression: (2) HTN (hypertension): Magdiel Rivera MD, R3 Jun 13, 2017 09:20
[2017-06-13] MEDS: PROMETHAZINE HCL 25 MG TAB PO PRN (10:30)
[2017-06-13] MEDS ORDERED: POTASSIUM CHLORIDE 10 MEQ CONTROLLED RELEASE TAB PO ONE (13:15)
[2017-06-13] MEDS: FREE WATER PO SCH ×2 (15:22→22:00)
[2017-06-13] MEDS: WARFARIN SOD 6 MG TAB PO SCH (15:22)
[2017-06-13 19:51] LABS: PHOSPHATIDYLSERINE AB IGA LESS THAN 20.0 U/mL (< 20.0); PHOSPHATIDYLSERINE AB IGM LESS THAN 25.0 U/mL (< 25.0)
[2017-06-14] VITALS (8 sets, daily range): BP systolic 109–151; BP diastolic 62–78; PULSE 84–101; RESP 16–18; TEMP 97.3–98.1; O2SAT 90–94
[2017-06-14] MEDS: LEVOTHYROXINE SODIUM 75 MCG TAB PO SCH (05:56)
[2017-06-14] MEDS: HEPARIN-D5W 25,000 U/250 ML 250 ML IV SCH ×2 (05:59→18:53)
[2017-06-14] MEDS: FREE WATER PO SCH ×3 (06:00→21:07)
[2017-06-14] MEDS: INSULIN ASPART SUPPLEMENTAL SCALE SQ SCH ×4 (06:01→21:00)
[2017-06-14 08:29] LABS: AUTOMATED NEUTROPHIL # 5.2 TH/MM3 (1.8-7.7); BASOPHIL # 0.1 TH/MM3 (0-0.2); BASOPHIL % 0.5 % (0.0-2.0); EOSINOPHIL # 0.3 TH/MM3 (0-0.4); EOSINOPHIL % 3.5 % (0.0-4.0); HEMATOCRIT 36.8 % (35.0-46.0); LYMPH % 31.9 % (9.0-44.0); MEAN CORPUSCULAR HEMOGLOBIN 26.4 PG (27.0-34.0); MEAN CORPUSCULAR HGB CONC 31.1 % (32.0-36.0); MONO % 9.4 % (0.0-8.0); NEUT % 54.7 % (16.0-70.0); PLATELET COUNT 129 TH/MM3 (150-450); RED BLOOD COUNT 4.33 MIL/MM3 (4.00-5.30); RED CELL DISTRIBUTION WIDTH 14.6 % (11.6-17.2); WHITE BLOOD COUNT 9.6 TH/MM3 (4.0-11.0)
[2017-06-14 08:41] LABS: APTT (PATIENT) 53.3 SEC (24.3-30.1); INTERNATIONAL NORMALIZED RATIO 1.9 RATIO; PROTHROMBIN TIME - PATIENT 22.1 SEC (9.8-11.6)
[2017-06-14 08:59] LABS: BICARBONATE 30.2 MEQ/L (21.0-32.0); POTASSIUM 3.1 MEQ/L (3.5-5.1)
[2017-06-14 09:08] LABS: HEMO FLAGS AUTO DIFF
[2017-06-14] MEDS: POTASSIUM CHLORIDE 20 MEQ CONTROLLED RELEASE TAB PO SCH (09:37)
[2017-06-14] MEDS: SPIRONOLACTONE 50 MG TAB PO SCH (09:37)
[2017-06-14] MEDS: PROMETHAZINE HCL 25 MG TAB PO PRN (09:37)
[2017-06-14] MEDS: METOPROLOL TARTRATE 25 MG TAB PO SCH ×2 (09:37→21:07)
[2017-06-14] MEDS: GABAPENTIN 300 MG CAP PO SCH ×3 (09:37→18:54)
[2017-06-14] MEDS: FAMOTIDINE 20 MG TAB PO SCH ×2 (09:37→21:07)
[2017-06-14] MEDS: ESCITALOPRAM OXALATE 10 MG TAB PO SCH (09:37)
[2017-06-14] MEDS: TOLTERODINE TARTRATE 4 MG CAP LA PO SCH (09:37)
[2017-06-14] MEDS: VALSARTAN 40 MG TAB PO SCH (09:37)
[2017-06-14] MEDS: SODIUM CHLORIDE 0.9% FLUSH 10 ML FLUSH IV FLUSH SCH ×2 (09:38→21:00)
[2017-06-14] MEDS: FUROSEMIDE 20 MG TAB PO SCH (09:38)
[2017-06-14] MEDS: ACETAMINOPHEN/HYDROcodone 325 MG/10 MG TAB PO PRN ×3 (09:38→21:07)
[2017-06-14] MEDS: CLOTRIMAZOLE 1% CREAM 15 GM TOPICAL SCH ×2 (09:39→21:00)
--- NOTE | 2017-06-14 09:44 | HHI.FPPN ---
Subjective Remarks Feeling good. Denies new SOB CP or fevers/chills. Getting up to bedside commode frequently without difficulty. No blood in stool, urine, or with cough. Denying SNF placement and says she has to go home to be with her two adult children. She understands the risks in doing so. (Magdiel Rivera MD, R3) Objective Vitals Vital Signs Date Time Temp Pulse Resp B/P (MAP) Pulse Ox O2 Delivery O2 Flow Rate FiO2 06/14/17 08:00 97.9 93 18 142/73 (96) 94 06/14/17 04:00 97.6 89 18 134/68 (90) 93 06/14/17 04:00 Room Air 06/14/17 00:00 Room Air 06/14/17 00:00 97.3 84 16 121/62 (81) 94 06/13/17 20:26 99 06/13/17 20:00 97.8 97 18 123/66 (85) 100 06/13/17 20:00 Room Air 06/13/17 16:00 97.1 95 18 128/65 (86) 93 06/13/17 15:37 98 Nasal Cannula 2.00 06/13/17 12:00 97.9 92 18 132/68 (89) 93 I/O 06/13/17 06/13/17 06/13/17 06/14/17 06/14/17 06/14/17 07:00 15:00 23:00 07:00 15:00 23:00 Intake Total 1193 ml 847 ml Output Total 4753 ml 2000 ml 600 ml Balance -4753 ml -807 ml 247 ml Intake Oral 960 ml 600 ml IV Total 233 ml 247 ml Output Urine Total 4753 ml 2000 ml 600 ml # Bowel Movements 0 0 0 (Magdiel Rivera MD, R3) Result Diagram: 06/14/17 0657 06/14/17 0657 Objective Remarks GENERAL: Morbidly obese. No acute distress. SKIN: Warm and dry. No rash. EYES: No scleral icterus. No injection or drainage. PERRLA. EOMI. HENT: Normocephalic. Atraumatic. Mucus membranes dry. NECK: No visible JVD or lymphadenopathy. CARDIOVASCULAR: Warm and well perfused. Regular rate and rhythm. RESPIRATORY: Normal respiratory effort. Clear to auscultation bilaterally. GASTROINTESTINAL: Large ventral hernia. Nontender to palpation. MUSCULOSKELETAL: Strength grossly WNL. BACK: Without obvious deformity. NEURO/PSYCH: Afocal. Awake, alert, and oriented x3. (Magdiel Rivera MD, R3) A/P Assessment and Plan 57 yo F presenting to ED with sepsis, SOB and N/V. Found to have PE, started on heparin drip, transitioning to Coumadin. Cystic mass found on CT scan followed up with ultrasound and MRI. Patient is in stable condition currently. (1) Sepsis Status: Resolved. Plan: Afebrile, leukocytosis improving. UA showing 50-100,000 mixed gram positive bacteria (likely contaminant). Will stop ABX. Wound cultures showing heavy skin dina. Blood cultures negative to date. Lactic acid 2.6 on admission, down trending CXR normal on admission. Discontinue with NS at maintenance. Discontinue Rocephin 1 g q 24 hours 06/12. D/c Zosyn and vancomycin 06/09. (2) Pulmonary embolism Status: Chronic Plan: Heparin gtt --> PO Coumadin 4 mg PO. INR 06/14 was 1.9 - increase Coumadin to 6 mg daily. Patient was on Coumadin for prior PE in 2007 and would like to resume. O2 sat in ED 90%, started on 4L NC -> weaned to 2L with O2 sat at 97% Wean as tolerated. CXR normal on admission CT pulmonary angiogram showed pulmonary embolism in the left lower lobe. ECG on admission showing sinus tachycardia with no ST segment changes, repeating q6hr. also showed T-wave inversions in V1, V2, V3, and lead III, that were new since 2013. May be related to demand ischemia. Troponin 0.12 on admission, decreased to 0.10 after 6 hours. Patient reports using inhaler occasionally at home, given duonebs in ED Continuing Duonebs, albuterol PRN PO Lasix 20 mg PO daily. Potassium 20 mEq daily + 60 mEq on 06/14. (3) Pelvic mass Status: Acute Plan: CT pelvis showing: " CT on 05/25/17 showing: "9.4 x 9.4 solid lesion with scattered calcifications in the central hypodense area which is loculated in the anterior pelvis superior to the urinary bladder. Posterior to the solid mass is a cystic lesion measuring 11.1 cm." US showing: "Team 0.1 cm cystic mass between the uterus and bladder similar to recent CT. Uterus is mildly enlarged with probable fibroid." MRI showing: "Large mass appears to arise from the uterus with cystic components posteriorly measuring 10.6 x 11.4 cm. Anterior compartment is cystic and solid with enhancement." Vesicare 10 mg daily for urinary symptoms. Evaluated by Dr. Toth, who would recommend avoiding a surgical procedure given the patient's high risk of complications. Recommend getting tumor markers, starting a daily prophylactic antibiotic for UTI, and possibly getting an MRI if possible to further identify the cyst/mass. We appreciate her assistance and expertise. (4) Hypernatremia Status: Acute - improving Plan: Likely from IVF - will start 250 ml free water PO q 8 hours. Check BMP in AM. (5) Nausea & vomiting Status: Acute Plan: Phenergan PO not working well - switch to IM. Consider Reglan if persistent N/V. (6) Diabetes mellitus type 2 Status: Chronic Plan: BSG <200 x 24 horus. 98 this on 06/14 in AM - hold Levemir for now, continue ISS. Takes Lantus 30 units daily at home. Switch to diabetic diet. (7) Neuropathy Status: Chronic Plan: continuing home Gabapentin 1.200 mg TID (8) HTN (hypertension) Status: Chronic Plan: Continuing home Metoprolol tartrate 25mg po BID, Valsartan 40mg po daily , Spironolactone 50mg po daily BP at goal. (9) Depression Status: Chronic Plan: Continuing home Lexapro 10mg PO daily (10) Hypothyroidism Status: Chronic Plan: Continuing home Levothyroxine 75 mcg po daily (11) Nutrition, metabolism, and development symptoms Status: Acute Plan: full diet, D/c IVF DVT prophylaxis - heparin gtt. Continuing home Famotidine [address] Masters (Magdiel Rivera MD, R3) Attending Attestation THIS CASE WAS DISCUSSED WITH THE RESIDENT PHYSICIAN DR Helder RIVERA MD. WE INTERVIEWED AND EXAMINED PATIENT TOGETHER,. I HAVE REVIEWED THE RECORD AND AGREE WITH THE ABOVE NOTE AND PLAN OF CARE WAS DISCUSSED. I HAVE AUTHORIZED THE ORDERS. (Gerardo Masters MD) Problem List: (1) Pulmonary embolism ICD Codes: I26.99 - Other pulmonary embolism without acute cor pulmonale (2) Shortness of breath ICD Codes: R06.02 - Shortness of breath Status: Acute Plan: PE vs pneumonia vs NH vs CHF exacerbation prior PE, DVT in past O2 sat in ED 90%, started on 4L NC -> weaned to 2L with O2 sat at 97% CXR normal on admission CT pulmonary angiogram read pending ECG on admission showing sinus tachycardia with no ST segment changes, repeating q6hr Troponin 0.12 on admission, repeating q6hr CKMB ordered - repeating q6hr Patient reports using inhaler occasionally at home, given duonebs in ED Continuing Duonebs, albuterol PRN Switching home PO Lasix to IV - 20mg BID, will continue home po Potassium 20 mEq daily repeat BMP (3) Nausea & vomiting ICD Codes: R11.2 - Nausea with vomiting, unspecified Status: Acute Plan: Phenergan PO not working well - switch to IV. Consider reglan if persistent N/V. (4) COSME (acute kidney injury) ICD Codes: N17.9 - Acute kidney failure, unspecified Status: Acute Plan: Resolved, cont to monitor. (5) Depression ICD Codes: F32.9 - Major depressive disorder, single episode, unspecified Status: Chronic Plan: Continuing home Lexapro 10mg po daily (6) HTN (hypertension) ICD Codes: I10 - Essential (primary) hypertension Status: Chronic Plan: Continuing home Metoprolol tartrate 25mg po BID, Valsartan 40mg po daily , Spironolactone 50mg po daily BP at goal. (7) Pelvic mass in female ICD Codes: R19.00 - Intra-abdominal and pelvic swelling, mass and lump, unspecified site Status: Acute (8) Venous stasis Status: Chronic (9) Diabetes mellitus type 2 Status: Chronic Plan: BSG <200 x 24 horus. 77 this on 06/12 in AM - hold Levemir for now, continue ISS. Takes Lantus 30 units daily at home. Switch to diabetic diet. (Magdiel Rivera MD, R3) Problem Qualifiers (1) Depression: (2) HTN (hypertension): Magdiel Rivera MD, R3 Jun 14, 2017 09:44 Gerardo Masters MD Jun 14, 2017 19:00
[2017-06-14] MEDS ORDERED: POTASSIUM CHLORIDE 10 MEQ CONTROLLED RELEASE TAB PO ONE (09:45)
[2017-06-14 10:05] LABS: BASOPHILS 1 % (0-2); CORRECTED NUCLEATED RBC 6 /100 WBC (0-0); EOSINOPHILS 7 % (0-4); NEUTROPHIL # MANUAL DIFF 5.7 TH/MM3 (1.8-7.7); PLATELET ESTIMATE SMEAR LOW (NORMAL); PLATELET MORPHOLOGY NORMAL (NORMAL); POLYS (SEG NEUTROPHILS) 63 % (16-70); SCAN/DIFF FINAL DIFF MANUAL; WBC DIFF SAMPLE 100
--- NOTE | 2017-06-14 14:13 | PD.CONS ---
History of Present Illness Service MOBILE HOMES REPAIRER/ONC Consult Requested By Reason for Consult pelvic mass Primary Care Physician Thania Rogers MD Diagnoses: (1) Pelvic mass (2) Sepsis (3) Pulmonary embolism History of Present Illness Ms. Kiran presented to the ER on 06/09/17 with c/o SOB, N/V x 2, back and leg pain. Patent has LLE pain and chronic swelling from prior DVT. She was found to be septic on admission currently being treated for UTI, and wound care following for wound to LLE and pannus. CT angiogram was + for PE, and she was admitted for treatment. CT obtained during a prior hospitalization on 04/07/17 stated that she had 10cm solid lesion with scattered calcifications and a central hypodense area which is located in the anterior pelvis superior to urinary bladder. Posterior to the solid lesion is a cystic lesion measuring 11cm. she was given instructions to follow up with sewing machine adjuster as outpatient and pt has not done so...She tells me she was unaware of the mass. Most recent U/S shown a 13.1 cystic mass between uterus and blader contains some debris but no definitive solid component. Dr. Toth saw Ms. Kiran is consultation and felt she is a poor surgical candidate d/t her extensive medical history and recent diagnosis of PE. MRI of the pelvis was completed on 06/12/17 and again commented on a large mass that appears to be arising from the uterus with cystic components [id number], anterior component is cystic and solid. Ms. Kiran denies having and PMB since she went through menopause. She tells me she did have uterine fibroid that caused her painful menstrual cycles pior to menopause. She denies any pelvic pain and states that she is afraid to go under anesthesia because of her medical history and apparently she was in a "coma" for 2 weeks after a surgical procedure and required a trach tube. She does not remember what that procedure was. I explained that we could see if IR could drain the cystic part of the mass and see if they could also get a solid tissue sample to send to pathology. I explained her tumor markers were normal, she doesn't have anything else concerning on her imaging for malignancy such as ascites, lymphadenopathy or omental thickening. Taking into account she is not symptomatic this could also be followed as out patient with imaging. After discussion she was most in favor of following the mass as outpt. Review of Systems Respiratory: COMPLAINS OF: Sputum production, Shortness of breath Cardiovascular: COMPLAINS OF: Lower Extremity Edema Musculoskeletal: COMPLAINS OF: Back pain Hematologic/lymphatic: DENIES: Bruising, Lymphadenopathy Psychiatric: COMPLAINS OF: Depression Past Family Social History Allergies: Coded Allergies: *MDRO Multi-Drug Resistant Organism (Verified Allergy, Unknown, 06/08/17) MRSA ESBL codeine (Unverified Adverse Reaction, Severe, N/V, 06/08/17) Past Medical History COPD Morbid obesity DVT with chronic left leg lymphedema HTN hypothyroid overactive bladder valvular disease PE hypokalemia anemia Past Surgical History C-sections X 3 Reported Medications per EMR Active Ordered Medications Current Medications Sodium Chloride (NS Flush) 2 ml UNSCH PRN IVF FLUSH AFTER USING IV ACCESS; Start 06/08/17 at 23:45; Stop 06/09/17 at 04:31; Status DC Methylprednisolone Sodium Succinate (SoluMEDROL INJ) 125 mg ONCE ONCE IVP Last administered on 06/08/17 23:50; Start 06/08/17 at 23:45; Stop 06/08/17 at 23:46; Status DC Albuterol/ Ipratropium (Duoneb Neb) 1 ampule Q15M INH Last administered on 06/08 23:48; Start 06/08/17 at 23:45; Stop 06/09/17 at 00:16; Status DC Piperacillin Sod/ Tazobactam Sod 50 ml @ 100 mls/hr ONCE ONCE IV Last administered on 06/09/17 02:27; Start 06/09/17 at 01:30; Stop 06/09/17 at 13:57 ; Status DC Vancomycin HCl 1000 mg/Sodium Chloride 250 ml @ 250 mls/hr ONCE ONCE IV Last administered on 06/09/17 02:26; Start 06/09/17 at 01:30; Stop 06/09/17 at 13:57 ; Status DC Sodium Chloride 500 ml @ 500 mls/hr BOLUS ONCE IV Last administered on 03:01; Start 06/09/17 at 01:45; Stop 06/09/17 at 02:44; Status DC Aspirin (Aspirin Chew) 162 mg ONCE ONCE CHEW Last administered on 06/09/17 02 :41; Start 06/09/17 at 02:15; Stop 06/09/17 at 02:16; Status DC Nitroglycerin (Nitroglycerin 2% Oint) 1 inch ONCE ONCE TOPICAL Last administered on 06/09/17 02:41; Start 06/09/17 at 02:15; Stop 06/09/17 at 02:16 ; Status DC Iohexol (Omnipaque 350 Inj) 75 ml STK-MED ONCE IV Last administered on 04:08; Start 06/09/17 at 04:08; Stop 06/09/17 at 04:09; Status DC Sodium Chloride 1,000 ml @ 150 mls/hr Q6H40M IV Last administered on 14:37; Start 06/09/17 at 04:25; Stop 06/12/17 at 09:12; Status DC Sodium Chloride (NS Flush) 2 ml UNSCH PRN IV FLUSH FLUSH AFTER USING IV ACCESS ; Start 06/09/17 at 04:30 Sodium Chloride (NS Flush) 2 ml BID IV FLUSH Last administered on 06/14/17 09: 38; Start 06/09/17 at 09:00 Vancomycin HCl 1000 mg/Sodium Chloride 250 ml @ 250 mls/hr Q12H IV ; Start at 14:30; Status UNV Pharmacy Profile Note 0 ml @ 0 mls/hr UNSCH OTHER ; Start 06/09/17 at 04:30; Status Cancel Piperacillin Sod/ Tazobactam Sod 50 ml @ 100 mls/hr Q6H IV Last administered on 06/09/17 10:02; Start 06/09/17 at 09:00; Stop 06/09/17 at 13:58; Status DC Sodium Chloride 1,000 ml @ 999 mls/hr BOLUS ONCE IV Last administered on 06/09 05:34; Start 06/09/17 at 04:45; Stop 06/09/17 at 05:45; Status DC Albuterol Sulfate (Proair Hfa Inh) 2 puff Q4H PRN INH SHORTNESS OF BREATH; Start 06/09/17 at 04:45; Stop 06/09/17 at 05:07; Status DC Escitalopram Oxalate (Lexapro) 10 mg DAILY PO Last administered on 06/14/17 09 :37; Start 06/09/17 at 09:00 Gabapentin (Neurontin) 1,200 mg TID PO Last administered on 06/14/17 09:37; Start 06/09/17 at 09:00 Levothyroxine Sodium (Synthroid) 75 mcg DAILY@06 PO Last administered on 05:56; Start 06/09/17 at 06:00 Metoprolol Tartrate (Lopressor) 25 mg Q12HR PO Last administered on 06/14/17 09:37; Start 06/09/17 at 09:00 Potassium Chloride (KCl) 20 meq DAILY PO Last administered on 06/14/17 09:37; Start 06/09/17 at 09:00 Spironolactone (Aldactone) 50 mg DAILY PO Last administered on 06/14/17 09:37 ; Start 06/09/17 at 09:00 Valsartan (Diovan) 40 mg DAILY PO Last administered on 06/14/17 09:37; Start 06/09/17 at 09:00 Famotidine (Pepcid) 20 mg BID PO Last administered on 06/14/17 09:37; Start at 09:00 Furosemide (Lasix Inj) 20 mg BID@09,18 IV PUSH Last administered on 06/10/17 08:45; Start 06/09/17 at 09:00; Stop 06/11/17 at 08:50; Status DC Albuterol/ Ipratropium (Duoneb Neb) 1 ampule Q4HR NEB PRN NEB SHORTNESS OF BREATH Last administered on 06/09/17 06:20; Start 06/09/17 at 04:45 Dextrose (D50w (Vial) Inj) 50 ml UNSCH PRN IV HYPOGLYCEMIA-SEE COMMENTS; Start 06/09/17 at 04:45 Glucagon (Glucagon Inj) 1 mg UNSCH PRN OTHER HYPOGLYCEMIA-SEE COMMENTS; Start 06/09/17 at 04:45 Insulin Aspart (NovoLOG SUPPLEMENTAL SCALE) 1 ACHS SLIDING SCALE SQ Last administered on 06/10/17 11:00; Start 06/09/17 at 07:00 Insulin Detemir (Levemir Inj) 8 units Q12HR SQ Last administered on 06/10/17 09:00; Start 06/09/17 at 09:00; Stop 06/10/17 at 10:34; Status DC Acetaminophen (Tylenol) 650 mg Q6H PRN PO PAIN SCALE 1 TO 2; Start 06/09/17 at 04:45 Acetaminophen/ Hydrocodone Bitart (Barney 5-325 Mg) 1 tab Q4H PRN PO PAIN SCALE 3 TO 5 Last administered on 06/10/17 10:52; Start 06/09/17 at 04:45 Acetaminophen/ Hydrocodone Bitart (Barney 10-325 Mg) 1 tab Q4H PRN PO PAIN SCALE 6 TO 10 Last administered on 06/14/17 09:38; Start 06/09/17 at 04:45 Morphine Sulfate (Morphine Inj) 4 mg Q3H PRN IV BREAKTHROUGH PAIN Last administered on 06/11/17 11:28; Start 06/09/17 at 04:45; Stop 06/12/17 at 06:08 ; Status DC Naloxone HCl (Narcan Inj) 0.4 mg UNSCH PRN IV SEE LABEL COMMENTS; Start at 04:45 Ondansetron HCl (Zofran Inj) 4 mg Q6H PRN IV PUSH nv Last administered on 05:59; Start 06/09/17 at 04:45; Stop 06/11/17 at 16:21; Status DC Enoxaparin Sodium (Lovenox Inj) 40 mg Q24H SQ Last administered on 06/09/17 05 :21; Start 06/09/17 at 06:00; Stop 06/09/17 at 19:08; Status DC Vancomycin HCl 1000 mg/Sodium Chloride 250 ml @ 250 mls/hr NOW ONCE IV Last administered on 06/09/17 05:35; Start 06/09/17 at 05:15; Stop 06/09/17 at 13:58 ; Status DC Albuterol Sulfate (Ventolin Hfa Inh) 2 puff Q4H PRN INH SHORTNESS OF BREATH; Start 06/09/17 at 05:07 Heparin Sodium (Porcine) (Heparin Inj) 5,000 units UNSCH PRN IV APTT LESS THAN 25; Start 06/09/17 at 11:45 Heparin Sodium (Porcine) (Heparin Inj) 2,500 units UNSCH PRN IV APTT 25 TO 39; Start 06/09/17 at 11:45 Heparin Sodium/ Dextrose 250 ml @ 0 mls/hr TITRATE IV Last administered on 06/14 05:59; Start 06/09/17 at 05:45 Vancomycin HCl 2000 mg/Sodium Chloride 520 ml @ 250 mls/hr Q18H IV ; Start at 22:00; Stop 06/09/17 at 22:00; Status DC Miscellaneous Information SPECIFIC LAB TO BE DRAWN:VANCOMYCIN TROUGH DATE TO... ONCE ONCE .XX ; Start 06/11/17 at 09:45; Stop 06/11/17 at 09:46; Status DC Clotrimazole (Lotrimin 1% Top Soln) 1 applic Q12HR TOPICAL ; Start 06/09/17 at 10:45; Status Cancel Non-Formulary Medication NON-FOMULARY: CLOTRIMAZOLE ... Q12HR TOPICAL Last administered on 06/09/17 12:23; Start 06/09/17 at 12:00; Stop 06/09/17 at 22:24 ; Status DC Ceftriaxone Sodium 1000 mg/ Sodium Chloride 100 ml @ 200 mls/hr Q24H IV Last administered on 06/11/17 14:37; Start 06/09/17 at 15:00; Stop 06/12/17 at 09:23 ; Status DC Warfarin Sodium (Coumadin) 4 mg DAILY@16 PO ; Start 06/09/17 at 19:00; Stop at 19:09; Status DC Patient Medication Teaching (Coumadin Booklet) 1 ONCE ONCE .XX Last administered on 06/09/17 20:41; Start 06/09/17 at 19:00; Stop 06/09/17 at 19:01 ; Status DC Warfarin Sodium (Coumadin) 4 mg DAILY@16 PO Last administered on 06/11/17 16: 00; Start 06/09/17 at 20:00; Stop 06/12/17 at 09:12; Status DC Clotrimazole (Lotrimin 1% Cream) APPLY TO Toes, feet and legs. Q12HR TOPICAL Last administered on 06/10/17 21:00; Start 06/09/17 at 22:30; Stop 06/11/17 at 08:05; Status DC Insulin Detemir (Levemir Inj) 16 units Q12HR SQ Last administered on 06/11/17 23:28; Start 06/10/17 at 21:00; Status Future Hold Clotrimazole (Lotrimin 1% Cream) 1 applic Q12HR TOPICAL Last administered on 09:39; Start 06/11/17 at 09:00 Furosemide (Lasix) 20 mg DAILY PO Last administered on 06/14/17 09:38; Start 06/11/17 at 09:00 Promethazine HCl (Phenergan) 25 mg Q6H PRN PO nausea / vomiting Last administered on 06/14/17 09:37; Start 06/11/17 at 16:30 Warfarin Sodium (Coumadin) 6 mg DAILY@16 PO Last administered on 06/13/17 15: 22; Start 06/12/17 at 16:00 Tolterodine Tartrate (Detrol La) 4 mg DAILY PO Last administered on 06/14/17 09:37; Start 06/12/17 at 10:00 Promethazine HCl (Phenergan Inj) 25 mg Q6H PRN IM Nausea/vomiting; Start at 09:30 Gadodiamide (Omniscan Pf Inj) 30 ml STK-MED ONCE IV Last administered on 10:06; Start 06/12/17 at 10:06; Stop 06/12/17 at 10:07; Status DC Potassium Chloride (KCl) 30 meq ONCE ONCE PO Last administered on 06/13/17 15 :21; Start 06/13/17 at 13:15; Stop 06/13/17 at 13:16; Status DC Water (Free Water) 250 ml Q8HR PO Last administered on 06/13/17 15:22; Start 06/13/17 at 14:00 Potassium Chloride (KCl) 60 meq ONCE ONCE PO Last administered on 06/14/17 11 :57; Start 06/14/17 at 09:45; Stop 06/14/17 at 10:22; Status DC Social History non smoker no alcohol denies illicit drugs lives with her 2 brothers Physical Exam Vital Signs Vital Signs Date Time Temp Pulse Resp B/P (MAP) Pulse Ox O2 Delivery O2 Flow Rate FiO2 06/14/17 11:46 98.1 90 18 150/71 (97) 93 06/14/17 09:26 Room Air 06/14/17 09:26 89 06/14/17 08:00 97.9 93 18 142/73 (96) 94 06/14/17 04:00 97.6 89 18 134/68 (90) 93 06/14/17 04:00 Room Air 06/14/17 00:00 Room Air 06/14/17 00:00 97.3 84 16 121/62 (81) 94 06/13/17 20:26 99 06/13/17 20:00 97.8 97 18 123/66 (85) 100 06/13/17 20:00 Room Air 06/13/17 16:00 97.1 95 18 128/65 (86) 93 06/13/17 15:37 98 Nasal Cannula 2.00 Physical Exam GENERAL: This is a well-nourished, well-developed patient, in no apparent distress. SKIN: No rashes, ecchymoses or lesions. Cool and dry. HEAD: Atraumatic. Normocephalic. No temporal or scalp tenderness. EYES: Pupils equal round and reactive. CARDIOVASCULAR: Regular rate and rhythm without murmurs, gallops, or rubs. RESPIRATORY: Clear to auscultation. Breath sounds equal bilaterally. No wheezes , rales, or rhonchi. GASTROINTESTINAL: Abdomen soft, non-tender, obese, exam limited MUSCULOSKELETAL: LLE with edema and dressing on wound NEUROLOGICAL: Awake and alert. Normal speech. Laboratory Laboratory Tests Test 06/14/17 06:57 White Blood Count 9.6 Corrected White Blood Count 9.1 Red Blood Count 4.33 Hemoglobin 11.4 Hematocrit 36.8 Mean Corpuscular Volume 85.0 Mean Corpuscular Hemoglobin 26.4 Mean Corpuscular Hemoglobin Concent 31.1 Red Cell Distribution Width 14.6 Platelet Count 129 Mean Platelet Volume 9.0 Neutrophils (%) (Auto) 54.7 Lymphocytes (%) (Auto) 31.9 Monocytes (%) (Auto) 9.4 Eosinophils (%) (Auto) 3.5 Basophils (%) (Auto) 0.5 Neutrophils # (Auto) 5.2 Lymphocytes # (Auto) 3.0 Monocytes # (Auto) 0.9 Eosinophils # (Auto) 0.3 Basophils # (Auto) 0.1 CBC Comment AUTO DIFF Differential Total Cells Counted 100 Neutrophils % (Manual) 63 Lymphocytes % 17 Monocytes % 12 Eosinophils % 7 Basophils % 1 Neutrophils # (Manual) 5.7 Nucleated Red Blood Cells 6 Differential Comment FINAL DIFF MANUAL Platelet Estimate LOW Platelet Morphology Comment NORMAL Red Cell Morphology Comment NORMAL Prothrombin Time 22.1 Prothromb Time International Ratio 1.9 Activated Partial Thromboplast Time 53.3 Blood Urea Nitrogen 11 Creatinine 0.63 Random Glucose 103 Calcium Level 7.9 Sodium Level 145 Potassium Level 3.1 Chloride Level 106 Carbon Dioxide Level 30.2 Anion Gap 9 Estimat Glomerular Filtration Rate 119 Date/Time Source Procedure Growth Status 06/09/17 00:05 Blood Peripheral Aerobic Blood Culture - Final NO GROWTH IN 5 DAYS Complete 06/09/17 00:05 Blood Peripheral Anaerobic Blood Culture - Final NO GROWTH IN 5 DAYS Complete 06/09/17 01:00 Urine Clean Catch Urine Culture - Final 50-100,000 CFU/ML MIXED GRAM POSITIVE... Complete 06/09/17 01:15 Wound Abdomen Gram Stain - Final Complete 06/09/17 01:15 Wound Culture - Final Staphylococcus Aureus Complete Result Diagram: 06/14/17 0657 06/14/17 0657 Imaging Last Impressions Pelvis MRI 06/12/17 0000 Signed Impressions: Service Date/Time: Monday, June 12, 2017 09:37 - CONCLUSION: 1. Large mass appears to arise from the uterus with cystic components posteriorly measuring 10.6 x 11.4 cm. Anterior component is cystic and solid with enhancement. MOBILE HOMES REPAIRER surgical consultation. Melchor Keith MD Pelvis Ultrasound 06/10/17 0000 Signed Impressions: Service Date/Time: May 22:22 - CONCLUSION: 1. 13.1 cm cystic mass between uterus and bladder similar to recent CT. This cystic mass contains some debris but no definite solid component. Uterus is mildly enlarged with probable fibroid. Exam severely limited by patient's body habitus. Russell Campbell MD CT Angiography 06/09/17 0235 Signed Impressions: Service Date/Time: Friday, June 09, 2017 03:53 - CONCLUSION: 1. Positive for pulmonary embolism in the left lower lobe. 2. Goiter. Kyle Pearson MD Chest X-Ray 06/09/17 0129 Signed Impressions: Service Date/Time: Friday, June 09, 2017 01:53 - CONCLUSION: No infiltrates seen. Kyle Pearosn MD Renal Ultrasound 06/09/17 0000 Signed Impressions: Service Date/Time: Friday, June 09, 2017 15:33 - CONCLUSION: 1. The right kidney is unremarkable in appearance. 2. Left kidney could not be visualized or evaluated. 3. Bladder was not visualized as well. Charles Castillo MD Lower Extremity Ultrasound 06/09/17 0000 Signed Impressions: Service Date/Time: Friday, June 09, 2017 16:57 - CONCLUSION: Limited suboptimal examination. Deep venous thrombosis cannot be excluded. Charles Castillo MD Assessment and Plan Problem List: (1) Pelvic mass ICD Codes: R19.00 - Intra-abdominal and pelvic swelling, mass and lump, unspecified site Status: Acute Plan: Patient is a poor surgical candidate d/t her medical history, poor performance status and current dx of PE. she would like to follow with imaging as outpt. There is still the consideration of having IR drain the cystic component and obtaining tissue BX for diagnosis. (2) Pulmonary embolism ICD Codes: I26.99 - Other pulmonary embolism without acute cor pulmonale Plan: Currently being managed by Med team patient will be discharged home on oral medications once her INR is therapeutic. Pt declined SNF (3) Sepsis ICD Codes: A41.9 - Sepsis, unspecified organism Status: Resolved Plan: per med team Discussed Condition With Dr. Long Problem Qualifiers (1) Sepsis: Dillon Fox Jun 14, 2017 14:13
[2017-06-14] MEDS: WARFARIN SOD 6 MG TAB PO SCH (17:02)
[2017-06-15] VITALS: BP 101/66; PULSE 88; RESP 18; TEMP 97.9; O2SAT 95
[2017-06-15] MEDS: ACETAMINOPHEN/HYDROcodone 325 MG/10 MG TAB PO PRN ×3 (01:56→10:21)
[2017-06-15 04:00] VITALS: BP 111/70; PULSE 82; RESP 16; TEMP 97.4; O2SAT 92
[2017-06-15] MEDS: INSULIN ASPART SUPPLEMENTAL SCALE SQ SCH (05:24)
[2017-06-15] MEDS: FREE WATER PO SCH (05:50)
[2017-06-15] MEDS: LEVOTHYROXINE SODIUM 75 MCG TAB PO SCH (05:50)
[2017-06-15 06:26] LABS: AUTOMATED NEUTROPHIL # 5.5 TH/MM3 (1.8-7.7); BASOPHIL # 0.1 TH/MM3 (0-0.2); BASOPHIL % 0.7 % (0.0-2.0); EOSINOPHIL # 0.4 TH/MM3 (0-0.4); EOSINOPHIL % 3.7 % (0.0-4.0); HEMATOCRIT 38.5 % (35.0-46.0); LYMPH % 33.6 % (9.0-44.0); LYMPHOCYTE # 3.4 TH/MM3 (1.0-4.8); MEAN CELL VOLUME 85.6 FL (80.0-100.0); MEAN CORPUSCULAR HEMOGLOBIN 26.3 PG (27.0-34.0); MEAN CORPUSCULAR HGB CONC 30.7 % (32.0-36.0); MONO % 8.4 % (0.0-8.0); NEUT % 53.6 % (16.0-70.0); PLATELET COUNT 138 TH/MM3 (150-450); RED CELL DISTRIBUTION WIDTH 14.7 % (11.6-17.2); WHITE BLOOD COUNT 10.3 TH/MM3 (4.0-11.0)
[2017-06-15 06:33] LABS: APTT (PATIENT) 62.6 SEC (24.3-30.1); INTERNATIONAL NORMALIZED RATIO 2.1 RATIO; PROTHROMBIN TIME - PATIENT 24.1 SEC (9.8-11.6)
[2017-06-15 06:42] LABS: HEMO FLAGS AUTO DIFF
[2017-06-15 07:28] LABS: BICARBONATE 27.3 MEQ/L (21.0-32.0); POTASSIUM 3.7 MEQ/L (3.5-5.1)
[2017-06-15 08:00] VITALS: BP 140/74; PULSE 90; RESP 20; TEMP 97.5; O2SAT 97
--- NOTE | 2017-06-15 08:48 | HHI.FPPN ---
Subjective Remarks Patient feeling well. No concerns or complaints. No fevers or chills. No new SOB. OOB to use bedside commode. No bleeding. Excited to go home today. Understands to get her lab work done on 06/17, and Thursday 06/21 and follow up with her PCP in 5-7 days. (Magdiel Rivera MD, R3) Objective Vitals Vital Signs Date Time Temp Pulse Resp B/P (MAP) Pulse Ox O2 Delivery O2 Flow Rate FiO2 06/15/17 04:00 Room Air 06/15/17 04:00 97.4 82 16 111/70 (84) 92 06/15/17 00:00 97.9 88 18 101/66 (78) 95 06/14/17 23:52 Room Air 06/14/17 20:08 92 06/14/17 20:00 Room Air 06/14/17 20:00 97.7 101 18 109/73 (85) 93 06/14/17 16:00 98.0 91 18 151/78 (102) 90 06/14/17 11:46 98.1 90 18 150/71 (97) 93 06/14/17 09:26 Room Air 06/14/17 09:26 89 I/O 06/14/17 06/14/17 06/14/17 06/15/17 06/15/17 06/15/17 06:59 14:59 22:59 06:59 14:59 22:59 Intake Total 847 ml 1234 ml 240 ml Output Total 600 ml 1200 ml 550 ml Balance 247 ml 34 ml -310 ml Intake Oral 600 ml 720 ml IV Total 247 ml 514 ml 240 ml Output Urine Total 600 ml 1200 ml 550 ml # Bowel Movements 0 0 (Magdiel Rivera MD, R3) Result Diagram: 06/15/17 0515 06/15/17 0515 Objective Remarks GENERAL: Morbidly obese. No acute distress. SKIN: Warm and dry. No rash. EYES: No scleral icterus. No injection or drainage. PERRLA. EOMI. HENT: Normocephalic. Atraumatic. Mucus membranes dry. NECK: No visible JVD or lymphadenopathy. CARDIOVASCULAR: Warm and well perfused. Regular rate and rhythm. RESPIRATORY: Normal respiratory effort. Clear to auscultation bilaterally. GASTROINTESTINAL: Large ventral hernia. Nontender to palpation. MUSCULOSKELETAL: Strength grossly WNL. BACK: Without obvious deformity. NEURO/PSYCH: Afocal. Awake, alert, and oriented x3. (LebanonMagdiel gibson MD, R3) A/P Assessment and Plan 57 yo F presenting to ED with sepsis, SOB and N/V. Found to have PE, started on heparin drip, transitioning to Coumadin. Cystic mass found on CT scan followed up with ultrasound and MRI. Patient is in stable condition currently. (1) Sepsis Status: Resolved. Plan: Afebrile, leukocytosis improving. UA showing 50-100,000 mixed gram positive bacteria (likely contaminant). Will stop ABX. Wound cultures showing heavy skin dina. Blood cultures negative to date. Lactic acid 2.6 on admission, down trending CXR normal on admission. Discontinue with NS at maintenance. Discontinue Rocephin 1 g q 24 hours 06/12. D/c Zosyn and vancomycin 06/09. (2) Pulmonary embolism Status: Chronic Plan: Heparin gtt --> PO Coumadin 4 mg PO. INR 06/15 was 2.1- increase Continue Coumadin to 6 mg daily. Patient was on Coumadin for prior PE in 2007 and would like to resume. O2 sat in ED 90%, started on 4L NC -> weaned to 2L with O2 sat at 97% Wean as tolerated. CXR normal on admission CT pulmonary angiogram showed pulmonary embolism in the left lower lobe. ECG on admission showing sinus tachycardia with no ST segment changes, repeating q6hr. also showed T-wave inversions in V1, V2, V3, and lead III, that were new since 2013. May be related to demand ischemia. Troponin 0.12 on admission, decreased to 0.10 after 6 hours. Patient reports using inhaler occasionally at home, given duonebs in ED Continuing Duonebs, albuterol PRN PO Lasix 20 mg PO daily. Potassium 20 mEq daily + 60 mEq on 06/14. (3) Pelvic mass Status: Acute Plan: CT pelvis showing: " CT on 05/25/17 showing: "9.4 x 9.4 solid lesion with scattered calcifications in the central hypodense area which is loculated in the anterior pelvis superior to the urinary bladder. Posterior to the solid mass is a cystic lesion measuring 11.1 cm." US showing: "Team 0.1 cm cystic mass between the uterus and bladder similar to recent CT. Uterus is mildly enlarged with probable fibroid." MRI showing: "Large mass appears to arise from the uterus with cystic components posteriorly measuring 10.6 x 11.4 cm. Anterior compartment is cystic and solid with enhancement." Vesicare 10 mg daily for urinary symptoms. Evaluated by Dr. Toth, who would recommend avoiding a surgical procedure given the patient's high risk of complications. Recommend getting tumor markers, starting a daily prophylactic antibiotic for UTI, and possibly getting an MRI if possible to further identify the cyst/mass. We appreciate her assistance and expertise. Also evaluated by Dr. Long. He offered to drain cystic pelvic lesion with CT guided aspiration vs. possible resection of lesion (surgically). The patient denies these options as the risks likely outweigh the benefits. Tumor markers were WNL. Should have serial imaging to monitor growth of mass/cyst. (4) Hypernatremia Status: Resolved. Plan: Likely from IVF - will start 250 ml free water PO q 8 hours. Check BMP in AM. (5) Nausea & vomiting Status: Acute Plan: Phenergan PO not working well - switch to IM. Consider Reglan if persistent N/V. (6) Diabetes mellitus type 2 Status: Chronic Plan: BSG <200 x 24 horus. 98 this on 06/14 in AM - hold Levemir for now, continue ISS. Takes Lantus 30 units daily at home. Switch to diabetic diet. (7) Neuropathy Status: Chronic Plan: continuing home Gabapentin 1.200 mg TID (8) HTN (hypertension) Status: Chronic Plan: Continuing home Metoprolol tartrate 25mg po BID, Valsartan 40mg po daily , Spironolactone 50mg po daily BP at goal. (9) Depression Status: Chronic Plan: Continuing home Lexapro 10mg PO daily (10) Hypothyroidism Status: Chronic Plan: Continuing home Levothyroxine 75 mcg po daily (11) Nutrition, metabolism, and development symptoms Status: Acute Plan: full diet, D/c IVF DVT prophylaxis - coumadin Continuing home Famotidine [address] Masters (Magdiel Rivera MD, R3) Attending Attestation Patient seen and examined. Case reviewed and discussed with the Dr Helder Rivera. Agree with plan of care as discussed with me and documented in the resident note . (Gerardo Masters MD) Problem List: (1) Pulmonary embolism ICD Codes: I26.99 - Other pulmonary embolism without acute cor pulmonale (2) Shortness of breath ICD Codes: R06.02 - Shortness of breath Status: Acute Plan: PE vs pneumonia vs UT vs CHF exacerbation prior PE, DVT in past O2 sat in ED 90%, started on 4L NC -> weaned to 2L with O2 sat at 97% CXR normal on admission CT pulmonary angiogram read pending ECG on admission showing sinus tachycardia with no ST segment changes, repeating q6hr Troponin 0.12 on admission, repeating q6hr CKMB ordered - repeating q6hr Patient reports using inhaler occasionally at home, given duonebs in ED Continuing Duonebs, albuterol PRN Switching home PO Lasix to IV - 20mg BID, will continue home po Potassium 20 mEq daily repeat BMP (3) Nausea & vomiting ICD Codes: R11.2 - Nausea with vomiting, unspecified Status: Acute Plan: Phenergan PO not working well - switch to IV. Consider reglan if persistent N/V. (4) COSME (acute kidney injury) ICD Codes: N17.9 - Acute kidney failure, unspecified Status: Acute Plan: Resolved, cont to monitor. (5) Depression ICD Codes: F32.9 - Major depressive disorder, single episode, unspecified Status: Chronic Plan: Continuing home Lexapro 10mg po daily (6) HTN (hypertension) ICD Codes: I10 - Essential (primary) hypertension Status: Chronic Plan: Continuing home Metoprolol tartrate 25mg po BID, Valsartan 40mg po daily , Spironolactone 50mg po daily BP at goal. (7) Pelvic mass in female ICD Codes: R19.00 - Intra-abdominal and pelvic swelling, mass and lump, unspecified site Status: Acute (8) Venous stasis Status: Chronic (9) Diabetes mellitus type 2 Status: Chronic Plan: BSG <200 x 24 horus. 77 this on 06/12 in AM - hold Levemir for now, continue ISS. Takes Lantus 30 units daily at home. Switch to diabetic diet. (Magdiel Rivera MD, R3) Problem Qualifiers (1) Pulmonary embolism: Qualified Codes: I26.99 - Other pulmonary embolism without acute cor pulmonale (2) Depression: (3) HTN (hypertension): Magdiel Rivera MD, R3 Jun 15, 2017 08:48 Gerardo Masters MD Jun 15, 2017 19:26
--- NOTE | 2017-06-15 08:57 | HHI.FF ---
Face to Face Verification Diagnosis: (1) CHRONIC PULMONARY EMBOLISM (2) Diabetes mellitus type 2 (3) Hypothyroidism (4) Congestive heart failure (5) Cystitis Home Health Nursing Order: Medical education Diabetic education Wound care and dressing changes Instructions: Please apply Bactroban ointment to her left lower extremity wound. Avoid bathing in tub. Keep area dry and covered. Ketaconazole 2% cream to areas of moisture, skin folds, etc. I have seen patient Morales Kiran on 06/15/17. My clinical findings support the need for the requested home health care services because: Ltd mobility - disease progression Patient has SOB Limited ability to care for self High risk of falls I certify that my clinical findings support that this patient is homebound because: Unsteady gait/balance Magdiel Rivera MD, R3 Jun 15, 2017 08:57
--- NOTE | 2017-06-15 09:00 | MB ---
cc: MAURICIO BIRMINGHAM M.D., KYLE R. MD [facility],REILLY Tay MD DATE OF CONSULTATION 06/15/[address] Miguel [place] REASON FOR CONSULTATION Pelvic mass. This patient is seen. Her findings are reviewed. Images are reviewed, history noted. She was counseled by me in conjunction with our nurse practitioner (Dillon Fox) and myself. I explained who I was, the reason for consultation, pelvic mass found on imaging. It is asymptomatic to her. She denies any vaginal bleeding, spotting, no pain or pressure. No change in her bowel or bladder function from baseline. CURRENT MEDICAL PROBLEMS 1. Urinary tract infection. 2. Deep vein thrombosis. 3. Pulmonary emboli. ADDITIONAL MEDICAL PROBLEMS Poor performance status, 160 kilogram weight, sedentary lifestyle. PAST MEDICAL HISTORY History is obtained from the chart and available records. She is not an informative historian. At some point she reports having a surgery but she cannot remember which and she reports being on a ventilator with tracheostomy for two weeks. No further details can be provided. PAST MEDICAL HISTORY, PAST SURGICAL HISTORY, FAMILY HISTORY, MEDICATIONS, REVIEW OF SYSTEMS All reviewed and are as documented in the chart. DISCUSSION Our meeting was limited to a consultative discussion. I explained the mass in the pelvis immediately adjacent to the uterus, large cystic component but solid component and I explained that there are benign growths that can occur in the pelvis and there are malignant growths. She has history of fibroids; this could be cystic degeneration of a fibroid, this could be benign neoplasm or could be a malignant growth. There is no overt evidence of metastatic disease elsewhere, no ascites, adenopathy or intraperitoneal nodularity, omental thickening that this detected within the confines of the x-rays. Apparently she had a CAT scan that reportedly did not show any of this while at this hospitalization she has had a pelvic ultrasound and pelvic MRI scan, neither of which thoroughly looked at the abdomen. Nevertheless, she is at high risk of surgical and perioperative complications combined with the fact it this is an asymptomatic mass, she is not in favor of surgery. We discussed therefore consideration of CT-directed aspiration and/or biopsy of this mass. However, even if malignancy were determined, she is not certain that she would ever consider additional treatment. If surgery is ever to be undertaken, I think she would be best served at a tertiary care center given her past perioperative surgical history and her current problems of active pulmonary emboli. I would recommend against surgery but if she is interested in diagnostic clarity, CT-directed aspiration/biopsy could perhaps help in that regard. She would have to stop her blood thinners and there is some potential morbidity as well as false negative from biopsy. The pros, cons, risks and benefits of each approach were discussed and reviewed. I think she understands the major pertinent aspects of our discussion but she is clear that she is not in favor of surgery. She is asymptomatic. She understands that the problem could get bigger, even if benign could cause problems down the line, but remains undecided regarding aspiration or biopsy and we are all in agreement that surgery at this time is not recommended. ASSESSMENT 1. Asymptomatic 10-cm pelvic mass with cystic and solid component. 2. Complex medical and surgical history with high risk of perioperative morbidity or mortality. 3. Extensive discussion. PLAN 1. Recommend against surgery at this time. 2. If surgery were ever considered, she would be best served at a tertiary care center. 3. She remains undecided regarding CT-directed aspiration and biopsy which could provide some diagnostic clarity. However, she remains uncertain whether she would consider any treatment if a malignancy were detected. Thank for the consultation. MD CAREN Lewis/KEHINDE /8:21 AM /8:44 AM SALLY
[2017-06-15] MEDS ORDERED: PROM25TA10 PO (09:03)
[2017-06-15] MEDS ORDERED: HYDR-3583 PO (09:03)
[2017-06-15] MEDS ORDERED: COUM6TAB PO (09:03)
[2017-06-15 09:17] VITALS: O2SAT 97
--- NOTE | 2017-06-15 09:24 | HHI.DS ---
Discharge Summary Admission Date Jun 09, 2017 at 02:04 Admitting Diagnosis Urosepsis (1) Pulmonary embolism ICD Codes: I26.99 - Other pulmonary embolism without acute cor pulmonale (2) Shortness of breath Plan: PE vs pneumonia vs CT vs CHF exacerbation prior PE, DVT in past O2 sat in ED 90%, started on 4L NC -> weaned to 2L with O2 sat at 97% CXR normal on admission CT pulmonary angiogram read pending ECG on admission showing sinus tachycardia with no ST segment changes, repeating q6hr Troponin 0.12 on admission, repeating q6hr CKMB ordered - repeating q6hr Patient reports using inhaler occasionally at home, given duonebs in ED Continuing Duonebs, albuterol PRN Switching home PO Lasix to IV - 20mg BID, will continue home po Potassium 20 mEq daily repeat BMP ICD Codes: R06.02 - Shortness of breath Status: Acute (3) Nausea & vomiting Plan: Phenergan PO not working well - switch to IV. Consider reglan if persistent N/V. ICD Codes: R11.2 - Nausea with vomiting, unspecified Status: Acute (4) COSME (acute kidney injury) Plan: Resolved, cont to monitor. ICD Codes: N17.9 - Acute kidney failure, unspecified Status: Acute (5) Depression Plan: Continuing home Lexapro 10mg po daily ICD Codes: F32.9 - Major depressive disorder, single episode, unspecified Status: Chronic (6) HTN (hypertension) Plan: Continuing home Metoprolol tartrate 25mg po BID, Valsartan 40mg po daily , Spironolactone 50mg po daily BP at goal. ICD Codes: I10 - Essential (primary) hypertension Status: Chronic (7) Pelvic mass in female ICD Codes: R19.00 - Intra-abdominal and pelvic swelling, mass and lump, unspecified site Status: Acute (8) Venous stasis Status: Chronic (9) Diabetes mellitus type 2 Plan: BSG <200 x 24 horus. 77 this on 06/12 in AM - hold Levemir for now, continue ISS. Takes Lantus 30 units daily at home. Switch to diabetic diet. Status: Chronic Brief History Ms. Kiran is a 57 yo AAF presenting with one day history of SOB, N/V (times 2) back and L Leg pain. Pt states that she had "trouble catching her breath" starting this morning. She then developed nausea and vomiting (x2) as well as Left leg and back pain. Her left leg is chronically swollen from a prior DVT. She also complains of a cough productive of yellow/brown sputum for the past 2 days. Denies chest pain. Of note, she came to the ED with dysuria 2 weeks ago and was diagnosed with UTI. Upon chart review she was discharged on zofran, nystatin topical powder and Macorbid (for which she believes to have 2 days left on course). She also complains of skin breakdown under her left pannus as well as the popliteal/ extensor fold of her L knee. CBC/BMP: 06/15/17 0515 06/15/17 0515 Significant Findings Laboratory Tests Test 06/12/17 11:20 06/13/17 04:49 06/14/17 06:57 06/15/17 05:15 Hemoglobin 11.4 GM/DL (11.6-15.3) 11.4 GM/DL (11.6-15.3) 11.4 GM/DL (11.6-15.3) Mean Corpuscular Hemoglobin 26.7 PG (27.0-34.0) 26.6 PG (27.0-34.0) 26.4 PG (27.0-34.0) 26.3 PG (27.0-34.0) Mean Corpuscular Hemoglobin Concent 31.3 % (32.0-36.0) 31.4 % (32.0-36.0) 31.1 % (32.0-36.0) 30.7 % (32.0-36.0) Platelet Count 127 TH/MM3 (150-450) 124 TH/MM3 (150-450) 129 TH/MM3 (150-450) 138 TH/MM3 (150-450) Monocytes (%) (Auto) 9.4 % (0.0-8.0) 9.2 % (0.0-8.0) 9.4 % (0.0-8.0) 8.4 % (0.0-8.0) Monocytes # (Auto) 1.0 TH/MM3 (0-0.9) Platelet Estimate LOW (NORMAL) LOW (NORMAL) LOW (NORMAL) Prothrombin Time 14.5 SEC (9.8-11.6) 17.8 SEC (9.8-11.6) 22.1 SEC (9.8-11.6) 24.1 SEC (9.8-11.6) Activated Partial Thromboplast Time 40.4 SEC (24.3-30.1) 45.0 SEC (24.3-30.1) 53.3 SEC (24.3-30.1) 62.6 SEC (24.3-30.1) Sodium Level 149 MEQ/L (136-145) 148 MEQ/L (136-145) Potassium Level 3.4 MEQ/L (3.5-5.1) 3.4 MEQ/L (3.5-5.1) 3.1 MEQ/L (3.5-5.1) Chloride Level 112 MEQ/L (98-107) 110 MEQ/L (98-107) Neutrophils % (Manual) 71 % (16-70) Nucleated Red Blood Cells 3 /100 WBC (0-0) 6 /100 WBC (0-0) Monocytes % 12 % (0-8) Eosinophils % 7 % (0-4) Calcium Level 7.9 MG/DL (8.5-10.1) Random Glucose 146 MG/DL (74-106) PE at Discharge GENERAL: Morbidly obese. No acute distress. SKIN: Warm and dry. No rash. EYES: No scleral icterus. No injection or drainage. PERRLA. EOMI. HENT: Normocephalic. Atraumatic. Mucus membranes dry. NECK: No visible JVD or lymphadenopathy. CARDIOVASCULAR: Warm and well perfused. Regular rate and rhythm. RESPIRATORY: Normal respiratory effort. Clear to auscultation bilaterally. GASTROINTESTINAL: Large ventral hernia. Nontender to palpation. MUSCULOSKELETAL: Strength grossly WNL. BACK: Without obvious deformity. NEURO/PSYCH: Afocal. Awake, alert, and oriented x3. Hospital Course Patient is a morbidly obese 57-year-old female, with a past medical history significant for type 2 diabetes, hypothyroidism, pulmonary embolism in 2007, ventral hernia, essential hypertension, and uterine fibroids, admitted to [place] for acute onset shortness of breath. She was found to have a left lower lobe pulmonary embolism, and was started on heparin drip. She was transitioned to by mouth Coumadin, to a therapeutic INR of 2.1. She will continue Coumadin 6 mg daily, with a repeat INR in 2-3 days. Her breathing was comfortable throughout her hospitalization on room air. She was never coughing up blood. Initially, with her tachycardia, low-grade fevers, and slight leukocytosis, she was meeting sepsis criteria. She was started on broad- spectrum antibiotics, including vancomycin and Zosyn, this was de-escalated to Ceftriaxone for a UTI. Urine cultures showed 50,000-100,000 mixed gram- positive organisms, likely a contaminant. Her antibiotics were then stopped. She does have multiple skin lesions, the most significant on her left lower extremity and under her abdominal pannus. Cultures of this wound showed staph aureus sensitive to all antibiotics. Her diabetes was well-controlled throughout her hospitalization, and she did not require her long-acting Lantus/ Levemir for the last 3 days of her hospitalization. It was recommended by physical therapy that she go to a shelter facility, however she denied this, because she needs to take care of her 2 adult children at home. She was discharged home in stable condition. Pt Condition on Discharge: Stable Discharge Disposition: Disch w/ Home Health Serv Discharge Instructions DIET: Follow Instructions for: Diabetic Diet Activities you can perform: Regular-No Restrictions Other Activity Instructions: Do not sit in bath tub. Keep bactroban ointment on left leg wound. Magdiel Rivera MD, R3 Jun 15, 2017 09:24
[2017-06-15] MEDS: GABAPENTIN 300 MG CAP PO SCH (09:27)
[2017-06-15] MEDS: VALSARTAN 40 MG TAB PO SCH (09:27)
[2017-06-15] MEDS: SPIRONOLACTONE 50 MG TAB PO SCH (09:27)
[2017-06-15] MEDS: METOPROLOL TARTRATE 25 MG TAB PO SCH (09:27)
[2017-06-15] MEDS: TOLTERODINE TARTRATE 4 MG CAP LA PO SCH (09:27)
[2017-06-15] MEDS: ESCITALOPRAM OXALATE 10 MG TAB PO SCH (09:27)
[2017-06-15] MEDS: POTASSIUM CHLORIDE 20 MEQ CONTROLLED RELEASE TAB PO SCH (09:27)
[2017-06-15] MEDS: FAMOTIDINE 20 MG TAB PO SCH (09:27)
[2017-06-15] MEDS: FUROSEMIDE 20 MG TAB PO SCH (09:28)
[2017-06-15] MEDS: SODIUM CHLORIDE 0.9% FLUSH 10 ML FLUSH IV FLUSH SCH (09:28)
[2017-06-15] MEDS: CLOTRIMAZOLE 1% CREAM 15 GM TOPICAL SCH (09:28)
[2017-06-15 09:30] LABS: CORRECTED NUCLEATED RBC 4 /100 WBC (0-0); EOSINOPHILS 2 % (0-4); NEUTROPHIL # MANUAL DIFF 6.2 TH/MM3 (1.8-7.7); POLYS (SEG NEUTROPHILS) 60 % (16-70); WBC DIFF SAMPLE 100
[2017-06-15 09:31] LABS: OVALOCYTES 1+ (NORMAL); PLATELET ESTIMATE SMEAR LOW (NORMAL); PLATELET MORPHOLOGY NORMAL (NORMAL); SCAN/DIFF FINAL DIFF MANUAL
[2017-06-15 09:36] VITALS: PULSE 80
[2017-06-15] MEDS ORDERED: MUPI2%T TOPICAL (12:10)
[2017-06-18] MEDS ORDERED: COUM6TAB PO (10:17)
[2017-06-27] MEDS ORDERED: METO25TA3 PO (10:13)
[2017-07-06] MEDS ORDERED: IBUP-232 PO (11:27)
[2017-07-13] MEDS ORDERED: AZIT500T2 PO (10:54)
[2017-07-13] MEDS ORDERED: PROM25TA10 PO (10:56)
[2017-07-21] MEDS ORDERED: WARF-60 PO (15:17)
[2017-07-26] MEDS ORDERED: GABA600T PO (11:27)
[2017-08-04] MEDS ORDERED: WARF-22 PO (11:33)
== END 2017-06-15 12:18 | disposition home health service (06) | DRG 871 ==
LOC: NEPE 22:55 → NEDA 06-09 02:04 → HCIS 06-09 14:24 → N04B 06-10 19:46
PROVIDERS: ADMIT Family Medicine; ATTEND Family Medicine
DX: A41.9 Sepsis, unspecified organism (principal); I26.99 Other pulmonary embolism without acute cor pulmonale; N17.9 Acute kidney failure, unspecified; Z68.43 Body mass index [BMI] 50.0-59.9, adult; N12 Tubulo-interstitial nephritis, not specified as acute or chronic; E87.0 Hyperosmolality and hypernatremia; G62.9 Polyneuropathy, unspecified; E66.01 Morbid (severe) obesity due to excess calories; Z86.718 Personal history of other venous thrombosis and embolism; N32.81 Overactive bladder; R00.0 Tachycardia, unspecified; E11.9 Type 2 diabetes mellitus without complications; I10 Essential (primary) hypertension; R11.2 Nausea with vomiting, unspecified; F32.9 Major depressive disorder, single episode, unspecified; E03.9 Hypothyroidism, unspecified; L98.8 Other specified disorders of the skin and subcutaneous tissue; I89.0 Lymphedema, not elsewhere classified; K43.9 Ventral hernia without obstruction or gangrene; D25.9 Leiomyoma of uterus, unspecified; Z79.4 Long term (current) use of insulin; R19.00 Intra-abdominal and pelvic swelling, mass and lump, unspecified site; I87.8 Other specified disorders of veins; Z86.711 Personal history of pulmonary embolism
CPT/HCPCS: 71010; 71275; 72197; 76775; 76856; 76937; 80048; 80053; 81001; 81240; 81241; 81291; 82378; 82550; 82552; 82948; 83090; 83605; 83880; 84484; 85007; 85025; 85027; 85240; 85300; 85303; 85306; 85307; 85598; 85610; 85613; 85730; 86146; 86147; 86148; 86304; 86403; 87040; 87070; 87086; 87147; 87186; 87205; 93005; 93306; 93971; 94640; 94664; 96374; A9579; J0696; J1644; J1650; J1815; J1940; J2270; J2405; J2543; J2930; J3370; J7030; J7040; J7050; Q0169; Q9967